=== PATIENT | female | born 1970 | race Caucasian/White ===

== ENCOUNTER 2023-04-07 07:48 | Outpatient (CLI) | payer OTHER, SELFPAY ==
[2023-04-07 18:38] LABS: Hematocrit 42.9 % (37.0-47.0); Hemoglobin 13.7 g/dL (12.0-15.0); Mean Corpuscular HGB Conc 31.9 g/dl (32-36); Mean Corpuscular Hemoglobin 32.2 pg (26-34); Mean Corpuscular Volume 100.7 fl (80-100); Mean Platelet Volume 9.4 fl (7.4-10.4); Platelet Count Result 370 k/mm3 (150-375); Red Blood Count 4.26 M/mm3 (4.2-5.4); Red Cell Distribution Width 12.4 % (11.5-14.5); White Blood Count 8.1 K/mm3 (4.5-10.0)
[2023-04-07 18:53] LABS: Appearance Urine Clear (Clear); Bilirubin Urine Negative (Negative); Blood Urine Negative (Negative); Color Urine Yellow (Yellow); Glucose Urine UA Negative (Negative); Ketones Urine Negative (Negative); Leukocyte Esterase Ur Negative LEU/UL (NEGATIVE); Nitrate Urine Negative (Negative); Protein Urine Negative (Negative); Specific Grav Ur 1.017 (1.001-1.035); Urobilinogen Urine 0.2 mg/dL (<2.0); pH Urine 6.5 (5.0-9.0)
[2023-04-07 18:55] LABS: Add Urine Microscopic? NO
[2023-04-07 19:20] LABS: Alanine Aminotransferase 20 U/L (6-35); Albumin Level 4.6 g/dL (3.5-5.1); Alkaline Phosphatase 68 U/L (38-126); Anion Gap 10 mmol/L (8-16); Aspartate Amino Transferase 54 U/L (14-36); Bilirubin,Total 0.4 mg/dL (0.2-1.3); Blood Urea Nitrogen 15 mg/dL (7-17); Carbon Dioxide 28 mmol/L (22-30); Chloride 102 mmol/L (98-107); Cholesterol 252 mg/dL (0-200); Estimated Glomerular Filt Rate > 60; Glucose 82 mg/dL (65-110); HDL Direct 85 mg/dL; Potassium 4.6 mmol/L (3.4-5.0); Sodium 140 mmol/L (137-145); Triglycerides 58 mg/dL (<150)
[2023-04-07 19:31] LABS: LDL Cholesterol Direct 120 mg/dL
== END 2023-04-07 07:49 | disposition home or self-care (01) ==
LOC: ANHBWCLAB 07:52
PROVIDERS: PCP Nurse Practitioner Adult Health; Visit Provider Nurse Practitioner Adult Health
DX: Z13.9 Encounter for screening, unspecified (principal); R39.9 Unspecified symptoms and signs involving the genitourinary system
CPT/HCPCS: 36415; 80053; 80061; 81003; 84443; 85027

== ENCOUNTER 2023-08-04 08:07 | Emergency (ER) | payer OTHER, SELFPAY ==
[2023-08-04 08:11] VITALS: BP 133/87; PULSE 98; RESP 16; TEMP 36.6; O2SAT 100
[2023-08-04 08:44] VITALS: BP 126/85; PULSE 101; RESP 18; O2SAT 99
[2023-08-04 09:01] LABS: Basophils Absolute Auto 0.1 K/mm3 (0.0-0.1); Basophils Percent Auto 0.7 % (0.2-1.2); Eosinophils Absolute Auto 0.1 K/mm3 (0-0.3); Eosinophils Percent Auto 1.4 % (0-4.4); Hematocrit 38.6 % (37.0-47.0); Hemoglobin 12.5 g/dL (12.0-15.0); Immature Granulocyte Absolute 0.02 K/mm3 (0.00-0.031); Immature Granulocyte Percent A 0.2 % (0-0.5); Lymphocytes Absolute Auto 1.45 K/mm3 (0.9-3.2); Mean Corpuscular HGB Conc 32.4 g/dl (32-36); Mean Corpuscular Volume 95.8 fl (80-100); Mean Platelet Volume 8.5 fl (7.4-10.4); Monocytes Absolute Auto 1.1 K/mm3 (0.1-0.6); Monocytes Percent Auto 13.3 % (2.6-8.5); Neutrophils Absolute Auto 5.8 K/mm3 (1.3-6.7); Neutrophils Percent Auto 67.4 % (45.5-73.1); Platelet Count Result 360 k/mm3 (150-375); Red Blood Count 4.03 M/mm3 (4.2-5.4); Red Cell Distribution Width 12.3 % (11.5-14.5); White Blood Count 8.5 K/mm3 (4.5-10.0)
[2023-08-04 09:04] LABS: Appearance Urine Cloudy (Clear); Bacteria Urine 1+ /hpf; Bilirubin Urine Negative (Negative); Blood Urine Negative (Negative); Color Urine Dark Yellow (Yellow); Glucose Urine UA Negative (Negative); Ketones Urine Trace mg/dL (Negative); Leukocyte Esterase Ur Trace LEU/UL (Negative); Nitrate Urine Negative (Negative); Non Pathogenic Casts 0-2; Protein Urine Negative (Negative); RBC Urine 0-2 /hpf (0-2); Specific Grav Ur 1.025 (1.001-1.035); Squamous Epithelial Cell Urine Few /hpf (Few); WBC Urine 0-5 /hpf
[2023-08-04 09:12] LABS: Add Urine Microscopic? YES
[2023-08-04 09:14] LABS: Alanine Aminotransferase 14 U/L (6-35); Albumin Level 3.7 g/dL (3.5-5.1); Alkaline Phosphatase 71 U/L (38-126); Anion Gap 9 mmol/L (8-16); Aspartate Amino Transferase 21 U/L (14-36); Bilirubin,Total 0.5 mg/dL (0.2-1.3); Blood Urea Nitrogen 13 mg/dL (7-17); Calcium 8.7 mg/dL (8.4-10.2); Carbon Dioxide 24 mmol/L (22-30); Chloride 103 mmol/L (98-107); Estimated CRCL calculation 66 ml/min; Estimated Glomerular Filt Rate > 60; Glucose 98 mg/dL (65-110); Lipase 38 U/L (23-300); Sodium 136 mmol/L (137-145)
[2023-08-04] MEDS: SODIUM CHLORIDE 0.9% IV 1,000 ML 999 ML IV CONT (09:17)
--- NOTE | 2023-08-04 09:30 | ED.GENADULT ---
HPI - General Adult General Chief complaint: Abdominal Pain Stated complaint: abd pain, diarrhea x 2 weeks Time Seen by Provider: 08/04/23 08:47 History of Present Illness HPI narrative: Patient is a 53-year-old female with history of IBS who presents ER with diarrhea and abdominal cramping. Ongoing for 2 weeks. Reports she has very foul brown water coming from her rectum. She has not been traveling and has not been on any antibiotics. No fevers or chills or sweats. She has had fatigue. No vomiting. No chest pain or chest pressure. no alleviating factors. Related Data Home Medications Medication Instructions Recorded Confirmed B12 BYMOUTH 04/06/23 B6 BYMOUTH 04/06/23 albuterol sulfate 90 mcg/actuation 1 puff inhalation Q4H PRN 04/06/23 04/06/23 aerosol inhaler (Ventolin HFA) Allergies Allergy/AdvReac Type Severity Reaction Status Date / Time No Known Allergies Allergy Unverified 04/06/23 15:36 Review of Systems Review of Systems: All systems reviewed & are unremarkable except as noted in HPI and below Constitutional: Constitutional: Reports no additional constitutional complaints ENT: Reports system reviewed and no additional complaints, except as documented Cardiovascular: Cardiovascular: Reports no additional cardiovascular complaints Respiratory: Respiratory: Reports no additional respiratory complaints Gastrointestinal: Gastrointestinal: Reports abdominal pain, Reports diarrhea, Denies nausea and Denies vomiting Musculoskeletal: Musculoskeletal: Reports no additional musculoskeletal complaints [facility] Past Medical History Medical History (Updated 08/04/23 @ 12:43 by Curt Jenkins MD) Asthma GERD (gastroesophageal reflux disease) IBS (irritable bowel syndrome) Family History Family History (Updated 04/06/23 @ 15:38 by Aurelia Roy MA) Father Asthma Hypertension History of ETOH abuse Grandparent No problems noted. 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 Gender identity (if verbalized by the patient): Female Agree to blood products: Yes Exam Narrative: GENERAL: Well-appearing, well-nourished, and in no acute distress. HEAD: Normocephalic, atraumatic. ENT: Mucous membranes moist. NECK: Supple. CHEST: Clear to auscultation. No respiratory distress. HEART: Regular rate and rhythm. Normal peripheral pulses. ABDOMEN: Soft, nontender, nondistended. EXTREMITIES: Normal range of motion. No edema. SKIN: Warm, dry, no rash. NEURO: Alert and oriented x3. PSYCH: Normal mood and affect. Course Course Emergency Course: patient resting comfortably. No C diff colitis. Discussed treatment with oral antibiotics for infectious diarrhea. Patient verbalized understanding. Recommend follow-up with PCP. If she does not improve she may require GI referral. Vital Signs Vital signs: Vital Signs Temperature 97.8 F 08/04/23 08:11 Pulse Rate 98 08/04/23 08:11 Respiratory Rate 16 08/04/23 08:11 Blood Pressure 133/87 08/04/23 08:11 Pulse Oximetry 100 08/04/23 08:11 Oxygen Delivery Room Air 08/04/23 08:11 Temperature 97.8 F 08/04/23 08:11 Pulse Rate 99 08/04/23 12:14 Respiratory Rate 17 08/04/23 12:14 Blood Pressure 131/85 08/04/23 12:14 Pulse Oximetry 100 08/04/23 12:14 Oxygen Delivery Room Air 08/04/23 08:11
[2023-08-04 10:07] LABS: Toxigenic C. Diff NEGATIVE (NEGATIVE)
[2023-08-04 12:14] VITALS: BP 131/85; PULSE 99; RESP 17; O2SAT 100
== END 2023-08-04 12:57 | disposition home or self-care (01) ==
PROVIDERS: Emergency Provider Emergency Medicine; PCP Nurse Practitioner Adult Health
DX: K52.9 Noninfective gastroenteritis and colitis, unspecified (principal)
CPT/HCPCS: 36415; 74018; 80053; 81001; 83690; 85025; 87493; 96360; 99283; J7030

== ENCOUNTER 2023-08-04 14:01 | Outpatient (CLI) | payer OTHER, SELFPAY ==
--- NOTE | ~2023-08-04 | XR_ITS ---
EXAMINATION: XR abdomen/kub 1V DATE: 08/04/2023 14:20 INDICATION: Diarrhea TECHNIQUE: Supine and upright views of the abdomen. FINDINGS: No prior studies for comparison. The visualized lung parenchyma is normal.. There is a nonspecific bowel gas pattern. There are multip le air-fluid levels. Gas and stool are seen throughout the colon to the level of the rectum. There i s no free air. IMPRESSION: 1. Air-fluid levels throughout the bowel without definite obstruction suggesting ileus or enteritis. . Reviewed, dictated and finalized at location B. K TRACER IMPRESSION: 1. Air-fluid levels throughout the bowel without definite obstruction suggesti ng ileus or enteritis..
== END 2023-08-04 14:02 | disposition home or self-care (01) ==
LOC: ANHBWCIMG 14:04
PROVIDERS: PCP Nurse Practitioner Adult Health; Visit Provider Nurse Practitioner Adult Health
DX: R19.7 Diarrhea, unspecified (principal)
CPT/HCPCS: 74018

== ENCOUNTER 2023-08-11 10:23 | Outpatient (CLI) | payer OTHER, SELFPAY ==
[2023-08-11 19:45] LABS: Hematocrit 42.1 % (37.0-47.0); Hemoglobin 13.4 g/dL (12.0-15.0); Mean Corpuscular HGB Conc 31.8 g/dl (32-36); Mean Corpuscular Hemoglobin 31.2 pg (26-34); Mean Corpuscular Volume 98.1 fl (80-100); Platelet Count Result 440 k/mm3 (150-375); Red Blood Count 4.29 M/mm3 (4.2-5.4); Red Cell Distribution Width 12.9 % (11.5-14.5); White Blood Count 8.4 K/mm3 (4.5-10.0)
[2023-08-11 21:13] LABS: Toxigenic C. Diff NEGATIVE (NEGATIVE)
[2023-08-11 21:14] LABS: Alanine Aminotransferase 20 U/L (6-35); Albumin Level 3.9 g/dL (3.5-5.1); Alkaline Phosphatase 64 U/L (38-126); Amylase 85 U/L (30-110); Anion Gap 8 mmol/L (8-16); Aspartate Amino Transferase 44 U/L (14-36); Bilirubin,Total 0.3 mg/dL (0.2-1.3); Blood Urea Nitrogen 14 mg/dL (7-17); Calcium 8.8 mg/dL (8.4-10.2); Carbon Dioxide 24 mmol/L (22-30); Chloride 102 mmol/L (98-107); Estimated Glomerular Filt Rate > 60; Glucose 89 mg/dL (65-110); Lipase 129 U/L (23-300); Sodium 134 mmol/L (137-145)
== END 2023-08-11 10:24 | disposition home or self-care (01) ==
LOC: ANHBWCLAB 10:25
PROVIDERS: PCP Nurse Practitioner Adult Health; Visit Provider Nurse Practitioner Adult Health
DX: R19.7 Diarrhea, unspecified (principal); R10.9 Unspecified abdominal pain
CPT/HCPCS: 36415; 80053; 82150; 83690; 83735; 85027; 87045; 87427; 87449; 87493

== ENCOUNTER 2023-08-11 12:34 | Emergency (ER) | payer OTHER, SELFPAY ==
[2023-08-11] VITALS (18 sets, daily range): BP systolic 124–148; BP diastolic 90–100; PULSE 93–113; RESP 11–20; TEMP 36.2; O2SAT 98–100
--- NOTE | ~2023-08-11 | CT_ITS ---
EXAMINATION: CT abdomen pelvis w con DATE: 08/11/2023 14:14 INDICATION: Abdominal pain, nausea and vomiting TECHNIQUE: Computed tomography (CT) of the abdomen and pelvis was performed with 100 mL Omnipaque-350 intravenous contrast. Automated exposure control and iterative reconstruction technique were employe d. The dose-length product was 339.41 mGy-cm. COMPARISON: None FINDINGS: Minimal atelectasis at the bilateral lung bases. Heart size is normal. No pericardial or pleural effu alena. Bilateral breast implants. Small region of focal hepatic steatosis at the ligamentum teres. Gal lbladder, spleen, pancreas, bilateral adrenal glands and kidneys are normal. There are surgical clips near the tip the cecum with no visualized appendix suggesting prior appendectomy. There is fluid thr oughout the colon consistent with reported history of diarrhea. No bowel obstruction. Bladder is norm al. The uterus is not identified and has likely been surgically resected. No free intraperitoneal gas or fluid. No pathologically enlarged abdominal or pelvic lymphadenopathy. Moderate lower thoracic sp ondylosis. IMPRESSION: 1. Fluid throughout the colon consistent with nonspecific diarrhea. No other acute intra-abdominal/pe lvic process. Reviewed, dictated and finalized at location A. LINE CREW MEMBER IMPRESSION: 1. Fluid throughout the colon consistent with nonspecific diarrhea. No other ac [place] intra-abdominal/pelvic process.
--- NOTE | 2023-08-11 12:50 | ED.NAVMDI ---
HPI - Nausea/Vomiting/Diarrhea General Chief complaint: Nausea/Vomiting/Diarrhea Stated complaint: Diarrhea/cramps Time Seen by Provider: 08/11/23 12:50 History of Present Illness HPI Narrative: Patient is a 53-year-old female here with abdominal pain and diarrhea x1 month. She states that she has been having 15-25 loose bowel movements a day which she describes is ?peeing out of her butt ?. She notes she was seen here recently for this, had a workup and C diff which was negative. She was started on Cipro and Flagyl and discharged home. She notes that the diarrhea previously had a foul smell which resolved with antibiotics but the volume has not changed. She has tried Imodium and Pepto bismol without improvement of symptoms. She followed up with her primary care doctor today was concerned given the volume of diarrhea that she could be dehydrated. They did refer her to GI, ordered an outpatient CT scan and started her on omeprazole. She was referred to the emergency department given concern for dehydration. She has had a prior colonoscopy, last was about 2 years ago, unremarkable. No prior history of IBD. No family history of IBD, colon cancer. She notes some generalized fatigue, lightheadedness associated with this diarrhea. No blood per rectum. She traveled to [place] in May, does not remember getting sick there. No recent changes in diet or medications Related Data Home Medications Medication Instructions Recorded Confirmed B12 BYNDUTH 04/06/23 08/11/23 B6 BYNDUTH 04/06/23 08/11/23 albuterol sulfate 90 mcg/actuation 1 puff inhalation Q4H PRN 04/06/23 08/11/23 aerosol inhaler (Ventolin HFA) Allergies Allergy/AdvReac Type Severity Reaction Status Date / Time No Known Allergies Allergy Verified 08/11/23 12:35 Review of Systems Review of Systems: All systems reviewed & are unremarkable except as noted in HPI and below PMFSH Past Medical History Medical History (Updated 08/11/23 @ 17:00 by Olamide Blake MD) Asthma GERD (gastroesophageal reflux disease) IBS (irritable bowel syndrome) Family History Family History (Updated 04/06/23 @ 15:38 by Aurelia Roy MA) Father Asthma Hypertension History of ETOH abuse Grandparent No problems noted. 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 Gender identity (if verbalized by the patient): Female Agree to blood products: Yes Exam Narrative: GENERAL: Well-appearing, well-nourished, and in no acute distress. HEAD: Normocephalic, atraumatic. EYES: PERRLA and EOMI. ENT: Nares clear. Mucous membranes moist. NECK: Supple. CHEST: Clear to auscultation. No respiratory distress. HEART: Regular rate and rhythm. Normal peripheral pulses. ABDOMEN: Soft, diffusely tender, no rebound or guarding, nondistended. EXTREMITIES: Normal range of motion. No edema. SKIN: Warm, dry, no rash. NEURO: No focal deficits. Alert and oriented x3. PSYCH: Normal mood and affect. Course Course Emergency Course: Chart review performed. Patient here with N/V/D x1 month, has been seen here previously for same, sent by PCP for concern for dehydration. PCP note reviewed. Note she finished a course of cipro, flagyl, having watery stools. Outpatient CT ordered by them, started on omeprazole and referred to GI. Patient seen evaluated, nontoxic appearing. Will do IV fl
[2023-08-11 13:21] LABS: Basophils Absolute Auto 0.1 K/mm3 (0.0-0.1); Basophils Percent Auto 0.6 % (0.2-1.2); Eosinophils Absolute Auto 0.2 K/mm3 (0-0.3); Eosinophils Percent Auto 2.1 % (0-4.4); Hematocrit 38.4 % (37.0-47.0); Hemoglobin 12.4 g/dL (12.0-15.0); Immature Granulocyte Absolute 0.08 K/mm3 (0.00-0.031); Immature Granulocyte Percent A 0.9 % (0-0.5); Lymphocytes Absolute Auto 1.52 K/mm3 (0.9-3.2); Lymphocytes Percent Auto 16.8 % (18.3-44.2); Mean Corpuscular HGB Conc 32.3 g/dl (32-36); Mean Platelet Volume 8.8 fl (7.4-10.4); Monocytes Absolute Auto 1.2 K/mm3 (0.1-0.6); Monocytes Percent Auto 13.7 % (2.6-8.5); Neutrophils Percent Auto 65.9 % (45.5-73.1); Platelet Count Result 401 k/mm3 (150-375); Red Cell Distribution Width 12.6 % (11.5-14.5); White Blood Count 9.1 K/mm3 (4.5-10.0)
[2023-08-11] MEDS: LACTATED RINGERS 1,000 ML 999 ML IV CONT ×2 (13:21)
[2023-08-11 13:39] LABS: Alanine Aminotransferase 19 U/L (6-35); Albumin Level 3.7 g/dL (3.5-5.1); Alkaline Phosphatase 48 U/L (38-126); Anion Gap 7 mmol/L (8-16); Aspartate Amino Transferase 28 U/L (14-36); Bilirubin,Total 0.3 mg/dL (0.2-1.3); Blood Urea Nitrogen 11 mg/dL (7-17); Calcium 8.3 mg/dL (8.4-10.2); Carbon Dioxide 26 mmol/L (22-30); Chloride 101 mmol/L (98-107); Estimated CRCL calculation 66 ml/min; Estimated Glomerular Filt Rate > 60; Glucose 114 mg/dL (65-110); Lipase 83 U/L (23-300); Magnesium 1.8 mg/dL (1.6-2.3); Potassium 3.7 mmol/L (3.4-5.0); Sodium 134 mmol/L (137-145)
[2023-08-11 13:56] LABS: Appearance Urine Clear (Clear); Bilirubin Urine Negative (Negative); Blood Urine Negative (Negative); Color Urine Yellow (Yellow); Glucose Urine UA Negative (Negative); Ketones Urine Negative (Negative); Leukocyte Esterase Ur Negative LEU/UL (Negative); Nitrate Urine Negative (Negative); Protein Urine Negative (Negative); Specific Grav Ur 1.005 (1.001-1.035); Urobilinogen Urine 0.2 mg/dL (<2.0)
[2023-08-11 14:14] LABS: Add Urine Microscopic? NO
[2023-08-11 16:54] LABS: Toxigenic C. Diff NEGATIVE (NEGATIVE)
== END 2023-08-11 17:16 | disposition home or self-care (01) ==
PROVIDERS: Emergency Medicine; Emergency Provider Student in an Organized Health Care Education/Training Program; PCP Nurse Practitioner Adult Health
DX: R19.7 Diarrhea, unspecified (principal); J45.909 Unspecified asthma, uncomplicated; K21.9 Gastro-esophageal reflux disease without esophagitis; K58.9 Irritable bowel syndrome, unspecified
CPT/HCPCS: 36415; 74177; 80053; 81003; 81025; 82150; 83605; 83690; 83735; 85025; 85027; 87045; 87427; 87449; 87493; 96360; 96361; 99284; J7120; Q9967

== ENCOUNTER 2023-11-16 15:35 | Outpatient (CLI) | payer OTHER, SELFPAY ==
--- NOTE | ~2023-11-16 | XR_ITS ---
XR_[id number]_[id number] 11/16/2023 15:55 Indication: Left knee pain Procedure: 2 views left knee Comparison: No prior studies for comparison. Findings: No fracture, subluxation or dislocation. No joint effusion. No foreign bodies. Impression: 1: No significant bone or joint abnormality. Reviewed, dictated and finalized at location A. Impression: 1: No significant bone or joint abnormality.
--- NOTE | ~2023-11-16 | XR_ITS ---
XR_[id number]_[id number] 11/16/2023 15:55 Indication: Right knee pain Procedure: 2 views right knee Comparison: No prior studies for comparison. Findings: No fracture, subluxation or dislocation. No significant joint effusion. No foreign bodies. Impression: 1: No significant bone or joint abnormality. Reviewed, dictated and finalized at location A. Impression: 1: No significant bone or joint abnormality.
== END 2023-11-16 15:36 | disposition home or self-care (01) ==
LOC: ANHBWCIMG 15:38
PROVIDERS: PCP Nurse Practitioner Adult Health; Visit Provider Nurse Practitioner Adult Health
DX: M25.569 Pain in unspecified knee (principal)
CPT/HCPCS: 73560

== ENCOUNTER 2023-12-03 08:28 | Outpatient (CLI) | payer OTHER, SELFPAY ==
--- NOTE | ~2023-12-03 | MR_ITS ---
MRI of the left knee Clinical history: Pain Technique: Coronal proton density and proton density-weighted images, sagittal proton-density and T2 fat-sat images, and axial proton-density fat-saturated images were acquired. Findings: Anterior and posterior cruciate ligaments are intact. Medial collateral ligament and the la teral collateral ligament complex are intact. Popliteus tendon is intact. Medial and lateral menisci are intact, without evidence of tear. There is patchy mild chondromalacia patella. Probable mild chondral thinning in the medial compartmen t. Remaining articular cartilage is relatively well preserved. Extensor mechanism is intact. No significant joint effusion. Minimal Marin's cyst present. Impression: Mild chondromalacia patella and in the medial compartment. Minimal Marin's cyst. Reviewed, dictated and finalized at location . Impression: Mild chondromalacia patella and in the medial compartment. Minimal Marin's cyst.
--- NOTE | ~2023-12-03 | MR_ITS ---
MRI of the right knee Clinical history: Pain Technique: Coronal proton density and proton density-weighted images, sagittal proton-density and T2 fat-sat images, and axial proton-density fat-saturated images were acquired. Findings: Anterior and posterior cruciate ligaments are intact. Medial collateral ligament and the la teral collateral complex are intact. Popliteus tendon is intact. Medial and lateral menisci are intact, without evidence of tear. There is patchy moderate to high-grade chondromalacia along lateral patellar facet extending to the a pex. Remaining articular cartilage in the knee is otherwise intact. There are focal areas of mild hector ctive subchondral marrow edema in the patella. Extensor mechanism is intact. No significant joint effusion. Small Marin's cyst. Impression: Chondromalacia patella, as detailed above. Small Marin's cyst. Reviewed, dictated and finalized at [facility]. Impression: Chondromalacia patella, as detailed above. Small Marin's cyst.
== END 2023-12-03 08:29 | disposition home or self-care (01) ==
PROVIDERS: PCP Nurse Practitioner Adult Health; Visit Provider Nurse Practitioner Adult Health
DX: M25.562 Pain in left knee (principal); M25.561 Pain in right knee; M71.21 Synovial cyst of popliteal space [Baker], right knee; M71.22 Synovial cyst of popliteal space [Baker], left knee
CPT/HCPCS: 73721

== ENCOUNTER 2024-02-22 20:07 | Emergency (ER) | payer OTHER, SELFPAY ==
--- NOTE | ~2024-02-22 | XR_ITS ---
EXAM: XR ankle RT min 3V, XR foot RT min 3V DATE: 02/22/2024 20:45 HISTORY: fall, twisted RT ankle . COMPARISON: None available. FINDINGS: Normal mineralization. Transverse fracture at the base the fifth metatarsal with 2 mm dist raction. No lytic or blastic lesion. Joint spaces are maintained. No erosion or periosteal change. So ft tissues within normal limits. IMPRESSION: Mildly distracted proximal right fifth metatarsal avulsion fracture. Reviewed, dictated and finalized at location K. IMPRESSION: Mildly distracted proximal right fifth metatarsal avulsion fracture .
[2024-02-22 20:48] VITALS: BP 168/90; PULSE 90; RESP 16; TEMP 36.3; O2SAT 100
--- NOTE | 2024-02-22 21:24 | ED.LOWEXIN ---
HPI - Extremity Injury (Lower) General Chief Complaint: Extremity Injury, Lower Stated Complaint: R ankle injury Time Seen by Provider: 02/22/24 21:18 Source: patient and family Mode of arrival: ambulatory Limitations: no limitations History of Present Illness HPI Narrative: 54-year-old with a history of for GERD, IBS, here with the complaints of right foot pain. Patient states that she accidentally twisted her foot on her front porch of her house and now having difficulty bearing weight. No other injuries. MD complaint: ankle injury and foot injury Onset (ago): hour(s) (1) Type of Injury: inversion Place: home Severity: moderate Relieving factors: nothing Exacerbating factors: nothing Associated symptoms: swelling Other symptoms: none Related Data Home Medications Medication Instructions Recorded [facility] 12/13/23 B6 [facility] 04/06/23 12/13/23 Allergies Allergy/AdvReac Type Severity Reaction Status Date / Time No Known Allergies Allergy Verified 02/22/24 21:10 Review of Systems Review of Systems: All systems reviewed & are unremarkable except as noted in HPI and below Constitutional: Constitutional: Reports no additional constitutional complaints Eyes: Eyes: Reports no additional eye complaints ENT: Reports system reviewed and no additional complaints, except as documented Cardiovascular: Cardiovascular: Reports no additional cardiovascular complaints Gastrointestinal: Gastrointestinal: Reports no additional gastrointestinal complaints Musculoskeletal: Musculoskeletal: Reports as per HPI Neurologic: Reports system reviewed and no additional complaints, except as documented Psychiatric: Psychiatric: Reports no additional psychiatric complaints [facility] Past Medical History Medical History Asthma Chondromalacia patellae of right knee GERD (gastroesophageal reflux disease) History of wrist fracture IBS (irritable bowel syndrome) Surgical History Surgical History History of appendectomy History of partial hysterectomy History of sinus surgery Family History Family History Father Asthma Hypertension History of ETOH abuse Cancer Grandparent No problems noted. Social History Social History (Updated 12/14/23 @ 14:56 by Yaneth Torres [facility]) Social History: caffeine use Smoking status: Never smoker Alcohol intake: current Drinks per week: 3 Alcohol use details: beer wine Lack of Transportation: No Lack of Food: Never True Current Housing: I Have Housing Concerned About Future Housing: No Difficulty Paying Gas/Electric Bills: No Difficulty Paying for Meds: No Currently Unemployed: No Education: High School Diploma/GED Difficulty w/ Childcare or Family Care: No Living arrangements: with roommate(s) Occupation/Education: occupation 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 Gender identity (if verbalized by the patient): Female Agree to blood products: Yes Exam Narrative: GENERAL: Well-appearing, well-nourished, and in no acute distress. HEAD: Normocephalic, atraumatic. EYES: PERRLA and EOMI. ENT: Nares clear, no rhinorrhea or epistaxis. Mucous membranes moist. NECK: Supple. CHEST: Clear to auscultation. No respiratory distress. HEART: Regular rate and rhythm. No murmur heard. Normal peripheral pulses. EXTREMITIES: Normal range of motion. No edema. Examination of the right foot shows mild soft tissue swelling along the 5th metatarsal area. No deformity noted. SKIN: Warm, dry, no rash. NEURO: No focal deficits. Alert and oriented x3. PSYCH: Normal mood and affect. Course Course Emergency Course: Notified patient about her x-ray findings. Recommended her to follow up with Dr. Alberts ,use crutches for ambulation.
[2024-02-22] MEDS: HYDROcodone/acetaminophen (*CRX) 5-325 MG TABLET 1 TAB PO (21:50)
== END 2024-02-22 22:01 | disposition home or self-care (01) ==
PROVIDERS: Emergency Provider Family Medicine; PCP Nurse Practitioner Adult Health
DX: S92.351A Displaced fracture of fifth metatarsal bone, right foot, initial encounter for closed fracture (principal); J45.909 Unspecified asthma, uncomplicated; K21.9 Gastro-esophageal reflux disease without esophagitis; X50.0XXA Overexertion from strenuous movement or load, initial encounter
CPT/HCPCS: 29515; 73610; 73630; 99284; A9270

== ENCOUNTER 2024-02-29 07:04 | Outpatient (CLI) | payer OTHER, SELFPAY ==
[2024-03-02 08:58] LABS: Thyroid Peroxidase Antibodies 1 IU/mL (<9)
[2024-03-02 15:29] LABS: Alternaria alternata IgE <0.10 kU/L; Alternaria alternata IgE Class 0; Aspergillus fumigatus IgE <0.10 kU/L; Bermuda Grass (G2) IgE <0.10 kU/L; Bermuda Grass (G2) IgE Class 0; Cat Dander IgE Class 1; Cladosporium herbarum IgE <0.10 kU/L; Cladosporium herbarum IgE Clas 0; Cockroach IgE <0.10 kU/L; Cockroach IgE Clas 0; Common Ragweed IgE Class 0; Cottonwood IgE <0.10 kU/L; Dermatophagoides Farinae Class 0; Dermatophagoides Pterony Class 0; Dermatophagoides Pteronyssinus <0.10 kU/L; Dog Dander IgE <0.10 kU/L; Elm (T8) IgE <0.10 kU/L; Elm (T8) IgE Class 0; Hickory/Pecan IgE <0.10 kU/L; Hickory/Pecan IgE Class 0; Immunoglobulin E 73 kU/L (<OR=114); Maple Box Elder IgE Class 0; Mountain Cedar IgE <0.10 kU/L; Mountain Cedar IgE Class 0; Mouse Urine Proteins IgE <0.10 kU/L; Mouse Urine Proteins IgE Class 0; Oak IgE <0.10 kU/L; Peniciliium notatum class 0; Penicillium notatum (M1) IgE <0.10 kU/L; Rough Marsh <0.10 kU/L; Rough Marsh Elder Class 0; Rough Pigweed (W14) IgE <0.10 kU/L; Rough Pigweed (W14) IgE Class 0; Russian Thistle <0.10 kU/L; Sycamore IgE <0.10 kU/L; Sycamore IgE Class 0; Timothy Grass IgE <0.10 kU/L; Timothy Grass IgE Class 0; Walnut Tree IgE <0.10 kU/L; Walnut Tree IgE Class 0; White Ash IgE Class 0; White Mulberry IgE <0.10 kU/L; White Mulberry IgE Class 0
[2024-03-06 07:07] LABS: Reference Lab Test Result 8.1
[2024-03-08 17:10] LABS: Reference Lab Test Name Chronic Urticaria
[2024-03-08 17:11] LABS: Reference Lab Test Result <16%
[2024-03-10 07:44] LABS: Reference Lab Test Name IgE Antibody; Reference Lab Test Result 13
== END 2024-02-29 07:05 | disposition home or self-care (01) ==
PROVIDERS: PCP Nurse Practitioner Adult Health
DX: J31.0 Chronic rhinitis (principal); L50.8 Other urticaria
CPT/HCPCS: 36415; 82785; 83520; 84443; 86003; 86376; 86800

== ENCOUNTER 2024-03-20 08:19 | Outpatient (CLI) | payer OTHER, SELFPAY ==
--- NOTE | ~2024-03-20 | XR_ITS ---
XR foot RT min 3V Ordering provider: Fracisco Alberts MD History: . M79.671 - Pain in right foot - Follow up . Comparison: February 25, 2024 FINDINGS: BONES: Fracture at the base of the fifth metatarsal bone with possible partial healing. JOINT SPACES: Normal. No tarsal coalition. SOFT TISSUES: Normal. IMPRESSION: Healing fracture at the base of the fifth metatarsal bone. Clinical correlation for tenderness in the area is advised. Reviewed, dictated and finalized at location A.
== END 2024-03-20 08:20 | disposition home or self-care (01) ==
PROVIDERS: PCP Nurse Practitioner Adult Health; Visit Provider Orthopaedic Surgery
DX: S92.351D Displaced fracture of fifth metatarsal bone, right foot, subsequent encounter for fracture with routine healing (principal); X58.XXXD Exposure to other specified factors, subsequent encounter
CPT/HCPCS: 73630

== ENCOUNTER 2024-04-28 12:03 | Outpatient (CLI) | payer OTHER, SELFPAY ==
--- NOTE | ~2024-04-28 | MM_ITS ---
EXAMINATION: MM scrn kedar implant BI w dagmar HISTORY: Screening mammogram TECHNIQUE: Craniocaudal and mediolateral oblique 3-D tomosynthesis images with implant displacement a nd synthetic 2-D images were generated. Craniocaudal and mediolateral oblique views of the breasts wi thout implant displacement were obtained using full field digital mammography. CAD analysis was submi tted and interpreted. COMPARISON: No prior mammogram is available for comparison at this institution. BREAST PARENCHYMAL COMPOSITION: The breasts are heterogeneously dense, which may obscure small masses . FINDINGS: There is no evidence of suspicious mass, calcification, or architectural distortion to sugg est malignancy in either breast. There has been no suspicious interval change. IMPRESSION: No mammographic evidence of malignancy. Recommend routine screening mammography in one year. BI-RADS Category 1: Negative Reviewed, dictated and finalized at [facility].
== END 2024-04-28 12:04 | disposition home or self-care (01) ==
PROVIDERS: PCP Nurse Practitioner Adult Health; Visit Provider Nurse Practitioner Adult Health
DX: Z12.31 Encounter for screening mammogram for malignant neoplasm of breast (principal)
CPT/HCPCS: 77063; 77067

== ENCOUNTER 2024-06-22 08:11 | Outpatient (CLI) | payer OTHER, SELFPAY ==
[2024-06-22 19:26] LABS: Hematocrit 39.4 % (37.0-47.0); Hemoglobin 12.9 g/dL (12.0-15.0); Mean Corpuscular HGB Conc 32.7 g/dl (32-36); Mean Corpuscular Hemoglobin 31.8 pg (26-34); Mean Platelet Volume 9.2 fl (7.4-10.4); Platelet Count Result 374 k/mm3 (150-375); Red Blood Count 4.06 M/mm3 (4.2-5.4); Red Cell Distribution Width 12.3 % (11.5-14.5); White Blood Count 5.4 K/mm3 (4.5-10.0)
[2024-06-22 20:15] LABS: Alanine Aminotransferase 19 U/L (6-35); Albumin Level 4.7 g/dL (3.5-5.1); Alkaline Phosphatase 64 U/L (38-126); Anion Gap 8 mmol/L (4-12); Aspartate Amino Transferase 70 U/L (14-36); Bilirubin,Total 0.4 mg/dL (0.2-1.3); Blood Urea Nitrogen 20 mg/dL (7-17); Calcium 9.3 mg/dL (8.4-10.2); Carbon Dioxide 28 mmol/L (22-30); Chloride 102 mmol/L (98-107); Cholesterol 235 mg/dL (0-200); Estimated Glomerular Filt Rate > 60; Glucose 84 mg/dL (65-110); HDL Direct 66 mg/dL; Sodium 138 mmol/L (137-145); Triglycerides 84 mg/dL (<150)
[2024-06-22 20:26] LABS: LDL Cholesterol Direct 116 mg/dL
== END 2024-06-22 08:12 | disposition home or self-care (01) ==
LOC: ANHBWCLAB 08:17
PROVIDERS: PCP Nurse Practitioner Adult Health; Visit Provider Nurse Practitioner Adult Health
DX: Z13.29 Encounter for screening for other suspected endocrine disorder (principal)
CPT/HCPCS: 36415; 80053; 80061; 82607; 84443; 85027

== ENCOUNTER 2024-07-10 16:02 | Outpatient (CLI) | payer OTHER, SELFPAY ==
--- NOTE | ~2024-07-10 | XR_ITS ---
AP and lateral views of the left hip Clinical history: Pain Findings: No acute fracture or dislocation is seen. Osseous alignment is anatomic. Left hip joint is intact. Soft tissues are unremarkable. Impression: No significant abnormality is seen. Reviewed, dictated and finalized at location M. SKINNER Impression: No significant abnormality is seen.
== END 2024-07-10 16:03 | disposition home or self-care (01) ==
LOC: ANHBWCIMG 16:04
PROVIDERS: PCP Nurse Practitioner Adult Health; Visit Provider Nurse Practitioner Adult Health
DX: M25.552 Pain in left hip (principal)
CPT/HCPCS: 73502

== ENCOUNTER 2025-05-01 10:36 | Outpatient (CLI) | payer BC, SELFPAY ==
--- OUTSIDE RECORDS SUMMARY | 2025-01-25 11:15 | XMS_ITS ---
Author Organization [facility] [place] ([address]) Address [address] [place] [address] Care Team Providers Care Eligibility Supervisor Name Role Phone Marcia Victoria Primary Care Provider Jania Jeaneth Candelario Unavailable [phone] Lashay Dunn Unavailable Unavailable Gilberto Richter Unavailable [phone] REASON FOR VISIT Hives follow-up Eczema follow-up Encounters Encounter Location Date Provider Diagnosis [facility] [address] [place] [address] 01/25/2025 Gilberto Richter Plan Of Treatment Next Appt Details Provider Name:Jeaneth Stone , 05/31/2025 03:30:00 PM, [address], [address], [place], [address], Progress Notes * Radha TOBINDOB:1970 (55 yo F)Acc No.[id number]:01/25/2025 Progress Notes Patient: Radha MARRERO Provider: Lucille Richter PA-C :1970 A ge:55 Y S ex:Female Date:01/25/2025 Address:[address] [id number] Pcp:JESSICA Garcia Subjective: * Chief Complaints: * 1 . Hives follow-up Eczema follow-up. * Medical History: Objective: * Vitals: Assessment: Plan: * Treatment: * Billing Information: * Visit Code: * Procedure Codes: * Electronic signature of Ayad Richter PA-C on 05/01/2025 at 11:23 AM CDT Sign off status: Pending * Provider: Lucille Richter PA-C Date: 0 01/25/2025 Generated for Erin lerner/Cory/Merricksmdelia on: 0 05/01/2025 11:23 AM CDT
--- NOTE | ~2025-05-01 | XR_ITS ---
EXAMINATION: XR mandible min 4V DATE: 05/01/2025 11:30 INDICATION: Right-sided jaw pain after trauma TECHNIQUE: Left and right lateral views as well as frontal and open mouth frontal views of the mandible were obtained COMPARISON: None. FINDINGS: No convincing radiographic evidence for a fracture of the mandible, however, evaluation is limited due to overlapping structures. Nasal septum is slightly deviated to the left. The sinuses are grossly clear. IMPRESSION: 1. No convincing radiographic evidence for a fracture of the mandible, however, evaluation is limited due to overlapping structures. If continued concern, consider a maxillofacial CT for further assessment. Reviewed, dictated and finalized at location Q. IMPRESSION: 1. No convincing radiographic evidence for a fracture of the mandible, however, evaluation is limited due to overlapping structures. If continued concern, con obstetrics specialist a maxillofacial CT for further assessment.
--- OUTSIDE RECORDS SUMMARY | 2025-05-01 11:24 | XMS_ITS | Encounter Summary ---
Author Organization [facility] Address [address] [place] [address] Phone Care Team Providers Care Admin Secretary Name Role Phone Jorge Luis Weems MD Unavailable Unavailab Sharmin Cosby MD Primary Care Provider Marcia Abrams APRN Primary Care Provider [phone] Kailey Tomlin MD Unavailable Reason for Visit * Reason Comments Medication Refill Encounter Details Date Type Department Care Team (Late st Contact Info) Description 07/27/2022 Refill [facility] - Family Medicine [address] [place] [address] [place] [id number] [place] [address] Medication Refill Social History Tobacco Use Types Packs/Day Years Used Date Smoking Tobacco: Never Smokeless Tobacco: Never Alcohol Use Standard Drinks/Week Comments Yes 3 (1 standard drink = 0.6 oz pur e alcohol) PHQ-2 Answer Date Recorded Total Score - Questions 1-9 0 05/0 11/2021 Sexually Active Control Partners Comments Yes Male Comments No Sex and Gender Information Value Date Recorded Sex Assigned at Not on file Legal Sex Female 11:21 PM CDT Gender Identity Not on file Sexual Orientation Not on file documented as of this encounter Miscellaneous Notes * Telephone Encounter - Kailyn Cunha RN - 07/27/2022 1:33 PM [employer] Duplicate request. [employer] * Telephone Encounter - Grazyna Valdez RN - 07/27/2022 10:11 AM CST duplicate [employer] documented in this encounter Plan of Treatment Upcoming Encounters Date Type Department Care Team (Late st Contact Info) Description 05/02/2025 8:00 AM CDT Office Visit [facility] - Cardiology [facility] ([facility] [address] [place] [address] Kailey Tomlin MD [address] [id number] documented as of this encounter Visit Diagnoses Diagnosis Anxiety Anxiety state, unspecified documented in this encounter Additional Health Concerns Infection Onset Date Last Indicated Resolved Time COVID - 19 09/23/2024 09/23/2024 09/23/2024 1:12 PM [employer] Respiratory Rule-Out 01/07/2025 01/07/2025 025 12:36 PM CDT Assessment Noted Time PHQ-9 Depression Total Score: 0 05/21/20 20 7:33 AM CDT documented as of this encounter Care Teams Admin Secretary Relationship Specialty Start Date End Date Sharmin Guillaume MD PCP - General Family Medicine 09/16/17 01/24/24 Marcia Abrams APRN [address] [place] [id number] PCP - General Advanced Practice Nurse 09/21/24 Jorge Luis Weems MD Consulting Physician Obstetrics & Gynecology 03/15/17 Kailey Tomlin MD [address] [id number] Consulting Physician Cardiovascular Disease - Cardiology 12/21/24 documented as of this encounter
--- OUTSIDE RECORDS SUMMARY | 2025-05-01 11:24 | XMS_ITS | Clinical Summary ---
Author Organization [facility] Address [address] [place] [address] Care Team Providers Care Data Entry Processor Name Role Phone Marcia Abrams SKIP-DUCT LAYER SUPERVISOR Primary Care Provider + Source Comments [facility],non-owned Affiliates and Associated Physician Practices is amultiple site organization consisting of ambulatory clinics and hospital sitesin [place], [place], [place] and [place]. This disclosure is being madepursuant to the Care Everywhere program and may not contain all information available regarding this patient. Last updated 18.[facility] Allergies Active Allergy Reactions Criticality Noted Date Comments Polyethylene Glycol Itching,Rhinitis Low 09/25/2024 Protamine Angioedema High 03/29/2025 Given in similar timeframe as Zofran, unknown which drug caused Sulfamethoxazole W-Trimethoprim Rash Medium 11/29/2020 Sulfur Hexaflouride Lipid A Microspheres Other Medium 09/25/2024 30 seconds after administration, patient began sneezing, complained of itching to palms of hands, then itching to soles of the feet. No treatment needed and able to complete test. Ondansetron Angioedema High 03/29/2025 Given in similar timeframe as Protamine, unknown which drug caused Medications * Be aware that medications may not be up to date on this document. Alwaysverify current medications with the patient. hydrocortisone, rectal, (Anusol-HC) 2.5 % cream Insert into the rectum at bedtime 28 g 4 Active loperamide (Imodium) 2 MG capsuleIndicati ons:Diarrhea Take 1 (one) capsule by mouth every 2 hours as needed for Diarrhea (max of 16mg daily) Reasons: Diarrhea 30 capsule 4 Active levalbuterol (Xopenex) 0.63 MG/3ML nebulizer solution Inhale 1.5 mL by mouth every 8 hours as needed for Shortness of Breath or Wheezing 21 mL 4 Active budesonide (Entocort EC) 3 MG capsule Take 3 (three) capsules by mouth once daily 168 capsule 4 Active cetirizine (ZyrTEC) 10 MG tablet 1 tablet Orally Twice a day; Duration: 30 days Active calcium 500 MG tablet Take 1 (one) tablet by mouth once daily Active Other Culterell probiotic Active albuterol HFA (Proventil; Ventolin; Proair) 108 (90 Base) MCG/ACT inhaler Inhale 2 (two) puffs by mouth every 6 hours as needed Active apixaban (Eliquis) 5 MG tablet Take 1 (one) tablet by mouth 2 times daily 60 tablet 03/30/2025 5:28 PM CDT 5 Active pantoprazole EC (Protonix) 40 MG tablet Take 1 (one) tablet by mouth 2 times daily 60 tablet 1 03/30/2025 5:28 PM CDT 5 Active dronedarone (Multaq) 400 MG tablet Take 1 (one) tablet by mouth 2 times daily with morning and evening meal 60 tablet 5 Active dronedarone (Multaq) 400 MG tablet Take 1 (one) tablet by mouth 2 times daily with morning and evening meal 60 tablet 2 5 Active metoprolol succinate XL 24hr (Toprol XL) 25 MG tablet Take 1 (one) tablet by mouth once daily 90 tablet 3 03/31/2025 11:01 AM CDT 5 Active predniSONE (Deltasone) 20 MG tablet Take 2 (two) tablets by mouth daily with breakfast 2 tablet 03/31/2025 11:01 AM CDT Active Active Problems Problem Noted Date Diagnosed Date Paroxysmal atrial fibrillation 03/09/2025 Collagenous colitis 08/19/2023 Overview (08/19/2023): 08/17/23 colonoscopy for diarrhea and bloating; random biopsies show collagenous colitis, no adenomas Abdominal pain, generalized 08/14/2023 Atopic dermatitis and related condition 05/23/20 Chronic urticaria 08/23/2012 Encounters Date Type Department Care Team Description 03/29/2025 8:06 AM CDT - 03/29/2025 11:59 PM CDT Hospital Encounter [facility] - Cardiac Word Processor Operator [address] [place] [phone] Kailey Tomlin MD Discharge Disposition: Home or Self Care 03/29/2025 7:48 AM CDT Anesthesia Event [facility] - Cardiac Word Processor Operator [address] [place] [phone] Torey Staples MD Osterloh, Joan Frances, SMUDGER-CALIBRATION TESTER 03/29/2025 7:15 AM CDT - 03/29/2025 12:36 PM CDT Surgery [facility] - Cardiac Word Processor Operator [address] [place] [phone] Kailey Tomlin MD Ablation - A-fib RF 03/29/2025 5:18 AM CDT - 04/01/2025 9:44 AM CDT Hospital Encounter [facility] 8N ACUTE [address] [place] [phone] Kailey Tomlin MD Hassan, Abdalla H, MD Cardiac Catheterization Discharge Disposition: Home or Self Care 03/29/2025 Travel 03/23/2025 3:00 PM CDT - 03/23/2025 11:59 PM CDT Hospital Encounter [facility] LAB OP DRAW STATION [address] [place] [phone] Discharge Disposition: Home or Self Care 03/23/2025 2:26 PM CDT - 03/23/2025 2:56 PM CDT Hospital Encounter [facility] PAT [address] [place] [phone] Lourdes Tomlin MD Discharge Disposition: Home or Self Care 03/23/2025 Travel 03/09/2025 Telephone [facility] - Cardiology [address] [place] [phone] Nikko Tejada RN Cardiac Ablation 03/07/2025 12:31 PM CDT - 03/07/2025 11:59 PM CDT Hospital Encounter [facility] CAT SCAN [address] [place] [phone] Kailey Tomlin MD Discharge Disposition: Home or Self Care 03/07/2025 Travel 02/27/2025 Telephone [facility] - Cardiology [address] [place] [phone] Nikko Tejada RN Cardiac Ablation 02/27/2025 Telephone [facility] - Cardiology [address] [place] [phone] Kailey Tomlin MD Follow-up from Last 3 Months Social History Tobacco Use Types Packs/Day Years Used Date Smoking Tobacco: Never Smokeless Tobacco: Never Alcohol Use Standard Drinks/Week Comments Yes 0 (1 standard drink = 0.6 oz pur e alcohol) socially AUDIT-C Answer Date Recorded Q1: How often do you have a drink containing alc ohol? 2-4 times a month 03/31/2025 Q2: How many drinks containi ng alcohol do you have on a typical day when you are drinking? 1 or 2 03/31/2025 Q3: How often do you have si x or more drinks on one occasion? Never 03/31/2025 Overall Financial Resource Strain (CARDIA) Answe r Date Recorded How hard is it for you to pa y for the very basics like food, housing, medical care, and heating? Not hard at all 03/31/2025 [facility] [place] [facility] - Occupational Stress Questionnaire Answer Date Recorded Do you feel stress - tense, restless, nervous, or anxious, or unable to sleep at night because your mind is troubled all the time - these days? Only a little 03/31/2025 Hunger Vital Sign Answer Date Recorded Within the past 12 months, y ou worried that your food would run out before you got the money to buy more. Never true 03/31/20 25 Within the past 12 months, t he food you bought just didn't last and you didn't have money to get more. Never true 03/31/2025 PRAPARE - Transportation Answer Date Re corded In the past 12 months, has l ack of transportation kept you from medical appointments or from getting medications? No 03/10 In the past 12 months, has l ack of transportation kept you from meetings, work, or from getting things needed for daily living? No 03/31/2025 Housing Stability Vital Sign Answer Gatito e Recorded In the last 12 months, was t here a time when you were not able to pay the mortgage or rent on time? No 08/14/2023 In the last 12 months, how many places have you lived? 1 08/14/2023 In the last 12 months, was t here a time when you did not have a steady place to sleep or slept in a custodial (including now)? No 08/14/2023 Housing Stability Vital Sign Answer Gatito e Recorded In the last 12 months, was t here a time when you were not able to pay the mortgage or rent on time? No 03/31/2025 In the past 12 months, how m any times have you moved where you were living? 0 03/31/2025 At any time in the past 12 m [facility], were you homeless or living in a custodial (including now)? 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 Gender Identity Female 03/06/2025 4:03 PM CDT Sexual Orientation Straight 03/06/2025 4: 03 PM CDT Last Filed Vital Signs Vital Sign Reading Time Taken Comments Blood Pressure 118/81 04/01/2025 7:28 AM CDT Pulse 81 04/01/2025 7:28 AM CDT Temperature 36.4 C (97.5 F) 04/01/2025 7:28 AM CDT Respiratory Rate 20 04/01/2025 7:28 AM CDT Oxygen Saturation 99% 04/01/2025 7:28 AM CDT Inhaled Oxygen Concentration 40% 03/30/2025 9 :00 AM CDT Weight 66.2 kg (146 lb) 04/01/2025 6:46 AM CDT Height 160 cm (5' 3) 03/29/2025 6:10 AM CDT Body Mass Index 25.86 03/29/2025 6:10 AM CDT Plan of Treatment Health Maintenance Due Date Last Done Comments COLOGUARD (AGES 45-75) - COLON CA SCREENING 1970 CT COLONOGRAPHY - COLON CA SCREENING 1970 FIT - COLON CA SCREENING 1970 FLEX SIG - COLON CA SCREENING 1970 HIV SCREENING 1985 HEPATITIS C SCREENING 12/28/1987 DTAP/TDAP/TD VACCINES (1 - Tdap) 1989 HEPATITIS B VACCINE (1 of 3 - 19+ 3-dose series) 1989 PNEUMOCOCCAL VACCINE 50+ (1 of 1 - PCV) 01/02/2020 ZOSTER VACCINE (1 of 2) 01/02/2020 DEPRESSION SCREENING 08/09/2024 MAMMOGRAM 12/04/2024 12/04/2022, 04/2 03/2023, 09/18/2021, Additional history exists COVID-19 VACCINE ( - 2023- season) 2025 INFLUENZA VACCINE (#1) 2025 SCREENING FOR DIABETES 04/01/2028 , 03/31/2025, 03/31/2025, Additional history exists LIPID TESTING 03/31/2030 03/31/2025 COLON MONITORING 08/17/2033 08/17/2023, 08/17/2023 COLONOSCOPY - COLON CA SCREENING 08/17/2033 08/17/2023, 08/17/2023 Colorectal Cancer Screening 08/17/2033 HIB VACCINE Aged Out No longer eligi ble based on patient's age to complete this topic HPV VACCINE Aged Out No longer eligi ble based on patient's age to complete this topic MENINGOCOCCAL (Group B) VACCINE SHARED DECISION-MAKING Aged Out No longer eligible based on patient's age to complete this topic MENINGOCOCCAL GROUPS A/C/Y/W VACCINE Aged Out No longer eligible based on patient's age to complete this topic Procedures Procedure Name Priority Date/Time Associated Diagnosis Comments CBC W AUTO DIFFERENTIAL AM Draw 04/01/20 3:06 AM CDT PTT Routine 04/01/2025 3:06 AM CDT PT-INR Routine 04/01/2025 3:06 AM CDT PHOSPHORUS BLOOD Routine 04/01/2025 3:06 AM CDT MAGNESIUM BLOOD Routine 04/01/2025 3:06 AM CDT COMPREHENSIVE METABOLIC PANEL AM Draw 04/01/2025 3:06 AM CDT CBC W AUTO DIFFERENTIAL STAT 03/31/20 9:[address] ABDOMEN PELVIS WO CONTRAST STAT 03/31/2025 2:38 PM CDT Abdominal pain, generalized HGB HCT PANEL Routine 03/31/2025 12:44 PM CDT HGB HCT PANEL STAT 03/31/2025 5:03 AM CDT HEMOGLOBIN A1C Routine 03/31/2025 5:03 AM CDT TSH REFLEX FREE T4 Routine 03/31/2025 5: 03 AM CDT LIPID PROFILE AM Draw 03/31/2025 5:03 AM CDT CBC W AUTO DIFFERENTIAL AM Draw 03/31/20 5:03 AM CDT PTT Routine 03/31/2025 5:03 AM CDT PT-INR Routine 03/31/2025 5:03 AM CDT PHOSPHORUS BLOOD Routine 03/31/2025 5:03 AM CDT MAGNESIUM BLOOD Routine 03/31/2025 5:03 AM CDT COMPREHENSIVE METABOLIC PANEL AM Draw 03/31/2025 5:03 AM CDT PTT Timed 03/30/2025 6:16 PM CDT PTT Timed 03/30/2025 11:16 AM CDT EKG 12-LEAD Routine 03/30/2025 10:44 AM CDT Paroxysmal atrial fibrillation (HCC) BLOOD GASES ART + COOX PANEL Routine 03/30/2025 7:54 AM CDT PTT Routine 03/30/2025 4:01 AM CDT PT-INR Routine 03/30/2025 4:01 AM CDT CBC W AUTO DIFFERENTIAL Routine 03/30/20 4:01 AM CDT PHOSPHORUS BLOOD Routine 03/30/2025 4:01 AM CDT MAGNESIUM BLOOD Routine 03/30/2025 4:01 AM CDT COMPREHENSIVE METABOLIC PANEL AM Draw 03/30/2025 4:01 AM CDT CALCIUM IONIZED WHOLE BLOOD AM Draw 03/30/2025 4:01 AM CDT PTT Routine 03/29/2025 8:18 PM CDT Paroxysmal atrial fibrillation (HCC) PT-INR Routine 03/29/2025 8:18 PM CDT Paroxysmal atrial fibrillation (HCC) CBC W AUTO DIFFERENTIAL Routine 03/29/20 8:18 PM CDT Paroxysmal atrial fibrillation (HCC) XR CHEST 1VW PORTABLE STAT 03/29/2025 6:30 PM CDT Difficult airway for intubation, initial encounter EKG 12-LEAD STAT 03/29/2025 6:21 PM CDT Paroxysmal atrial fibrillation (HCC) COMPLEMENT C4 STAT 03/29/2025 4:52 PM CDT COMPLEMENT C3 STAT 03/29/2025 4:52 PM CDT COMPREHENSIVE METABOLIC PANEL STAT 03/29/2025 4:52 PM CDT PT-INR STAT 03/29/2025 4:52 PM CDT BLOOD GASES ART + COOX PANEL STAT 03/29/2025 4:52 PM CDT CBC W AUTO DIFFERENTIAL STAT 03/29/20 4:52 PM CDT PHOSPHORUS BLOOD STAT 03/29/2025 4:52 PM CDT MAGNESIUM BLOOD STAT 03/29/2025 4:52 PM CDT ACT LR - POCT ([facility]) Routine 03/29/2025 2:48 PM CDT ELECTROPHYSIOLOGY PROCEDURE Routine 03/29/2025 2:22 PM CDT Paroxysmal atrial fibrillation (HCC) ELECTROPHYSIOLOGY PROCEDURE Routine 03/29/2025 2:22 PM CDT Paroxysmal atrial fibrillation (HCC) ACT LR - POCT ([facility]) Routine 03/29/2025 2:21 PM CDT ACT LR - POCT ([facility]) Routine 03/29/2025 1:51 PM CDT ACT LR - POCT ([facility]) Routine 03/29/2025 1:30 PM CDT ACT LR - POCT ([facility]) Routine 03/29/2025 1:23 PM CDT ACT LR - POCT ([facility]) Routine 03/29/2025 1:00 PM CDT ACT LR - POCT ([facility]) Routine 03/29/2025 12:34 PM CDT ACT LR - POCT ([facility]) Routine 03/29/2025 12:10 PM CDT ACT LR - POCT ([facility]) Routine 03/29/2025 11:55 AM CDT ACT LR - POCT ([facility]) Routine 03/29/2025 11:41 AM CDT ECHO DAVID W INTERVENTION STAT 03/29/20 8:46 AM CDT Paroxysmal atrial fibrillation (HCC) ARTERIAL LINE NOTE Routine 03/29/2025 8: 32 AM CDT ENDOTRACHEAL TUBE NOTE Routine 8:24 AM CDT EKG 12-LEAD Routine 03/29/2025 6:23 AM CDT Paroxysmal atrial fibrillation (HCC) TYPE + SCREEN PANEL STAT 03/29/2025 6 :17 AM CDT PT-INR STAT 03/29/2025 6:17 AM CDT Paroxysmal atrial fibrillation (HCC) BASIC METABOLIC PANEL (CALCIUM TOTAL) STAT 03/29/2025 6:17 AM CDT Paroxysmal atrial fibrillation (HCC) CBC W AUTO DIFFERENTIAL STAT 03/29/20 6:17 AM CDT Paroxysmal atrial fibrillation (HCC) TYPE + SCREEN PANEL Routine 03/23/2025 3 :05 PM CDT Pre-op evaluation CBC W AUTO DIFFERENTIAL Routine 08/15/20 25 3:05 PM CDT Paroxysmal atrial fibrillation (HCC) BASIC METABOLIC PANEL (CALCIUM TOTAL) Routine 03/23/2025 3:05 PM CDT Paroxysmal atrial fibrillation (HCC) PT-INR STAT 03/23/2025 3:05 PM CDT Paroxysmal atrial fibrillation (HCC) CT CARDIAC ANGIO STRUCT MORPH MIESHA 03/07/2025 1:16 PM CDT Paroxysmal atrial fibrillation (HCC) ISTAT CREATININE Routine 03/07/2025 12:5 2 PM CDT ENDOSCOPY, COLON, DIAGNOSTIC Routine 08/17/2023 9:23 AM 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 APTT 24.1 23.0 - 38.4 Seconds 04/01/2025 3:49 AM CDT [facility] Comment:Suggested therapeuti c range for full dose I.V. unfractionated heparin therapy for venous thromboembolism is 71 to 109 seconds. Blood BLOOD SPECIMEN / Unknown Lab Venipuncture / Unknown 04/01/2025 3:06 AM CDT 04/01/2025 3:23 AM CDT Shazia Chavez MD LAB - COAGULATION ORDERABLES Final Result [facility] [address] [place] [phone], [facility] [phone] * (ABNORMAL) PT-INR (04/01/2025 3:06 AM CDT) Only the most recent of7 resultswithin the time period is included. PT 15.3(H) 12.1 - 14.8 Seconds 04/01/2025 3:49 AM CDT [facility] INR 1.2 See Comment 04/01/2025 3:49 AM [facility] Comment:The suggested therap eutic range for standard coumadin (warfarin) therapy is an INR of 2.0-3.0. For high-risk patients (Mechanical Mitral Valve Prosthesis, etc.), the suggested prophylactic therapeutic range is an INR of 2.5-3.5. Blood BLOOD SPECIMEN / Unknown Lab Venipuncture / Unknown 04/01/2025 3:06 AM CDT 04/01/2025 3:23 AM CDT us Shazia Chavez MD LAB - COAGULATION ORDERABLES Final Result [facility] [address] [place] [address], [facility] [phone] * (ABNORMAL) CBC W AUTO DIFFERENTIAL (04/01/2025 3:06 AM CDT) Only the most recent of8 resultswithin the time period is included. WBC 8.3 4.0 - 10.7 x10E9/L 04/01/2025 3:32 AM [facility] RBC Count 3.11(L) 3.90 - 5.20 x10E12/L 04/01/2025 3:32 AM [facility] Hemoglobin 9.8(L) 11.9 - 15.8 g/dL 04/01/2025 3:32 AM [facility] Hematocrit 30.7(L) 34.8 - 46.1 % 04/01/2025 3:32 AM [facility] MCV 98.7(H) 80.0 - 98.0 fL 04/01/2025 3:32 AM [facility] MCH 31.5 26.7 - 33.6 pg 04/01/2025 3:32 AM [facility] MCHC 31.9 31.7 - 36.3 g/dL 04/01/2025 3:32 AM [facility] RDW-CV 13.2 11.3 - 14.8 % 04/01/2025 3:32 AM [facility] Platelet Count 185 150 - 420 x10E9/L 04/01/2025 3:32 AM [facility] MPV 9.3 7.8 - 11.4 fL 04/01/2025 3:32 AM [facility] Neutrophil % 67.7 41.0 - 74.0 % 04/01/2025 3:32 AM [facility] Lymphocyte % 23.4 17.0 - 47.0 % 04/01/2025 3:32 AM [facility] Monocyte % 8.3 3.0 - 11.0 % 04/01/2025 3:32 AM [facility] Eosinophil % 0.1 0.0 - 7.0 % 04/01/2025 3:32 AM [facility] Basophil % 0.0 0.0 - 1.6 % 04/01/2025 3:32 AM [facility] Immature Granulocytes % 0.5 0.0 - 1.0 % 04/01/2025 3:32 AM [facility] Neutrophil Absolute 5.62 1.60 - 7.50 x10E9/L 04/01/2025 3:32 AM [facility] Lymphocyte Absolute 1.94 1.00 - 4.40 x10E9/L 04/01/2025 3:32 AM [facility] Monocyte Absolute 0.69 0.15 - 1.00 x10E9/L 04/01/2025 3:32 AM [facility] Eosinophil Absolute 0.01 0.00 - 0.60 x10E9/L 04/01/2025 3:32 AM [facility] Basophil Absolute 0.00 0.00 - 0.13 x10E9/L 04/01/2025 3:32 AM [facility] Blood BLOOD SPECIMEN / Unknown Lab Venipuncture / Unknown 04/01/2025 3:06 AM T 04/01/2025 3:[address] [facility] us Shazia Chavez MD LAB - HEMATOLOGY ORDERABLES Final Result [facility] [address] [place] [address], [facility] [phone] * (ABNORMAL) COMPREHENSIVE METABOLIC PANEL (04/01/2025 3:[address] [facility]) Only the most recent of4 resultswithin the time period is included. BUN 8 7 - 26 mg/dL 04/01/2025 3:52 AM [facility] Creatinine 0.63 0.56 - 0.96 mg/dL 04/01/2025 3:52 AM [facility] Sodium 139 136 - 145 mmol/L 04/01/2025 3:52 AM [facility] Potassium 4.3 3.5 - 4.5 mmol/L 04/01/2025 3:52 AM [facility] Chloride 108(H) 98 - 107 mmol/L 04/01/2025 3:52 AM [facility] CO2 22 22 - 29 mmol/L 04/01/2025 3:52 AM [facility] Glucose 98 70 - 99 mg/dL 04/01/2025 3:52 AM [facility] Calcium 8.7 8.4 - 10.2 mg/dL 04/01/2025 3:52 AM [facility] Protein Total 6.7 6.0 - 8.3 g/dL 04/01/2025 3:52 AM [facility] Albumin 3.8 3.4 - 5.0 g/dL 04/01/2025 3:52 AM [facility] Bilirubin Total 0.3 0.2 - 1.2 mg/dL 04/01/2025 3:52 AM [facility] Alkaline Phosphatase 48 40 - 150 U/L 04/01/2025 3:52 AM [facility] ALT 14 5 - 55 U/L 04/01/2025 3:52 AM [facility] AST 21 5 - 34 U/L 04/01/2025 3:52 AM [facility] Anion Gap 9 6 - 16 04/01/2025 3:52 AM [facility] BUN/Creatinine Ratio 13 7 - 23 04/01/2025 3:52 AM [facility] Osmolality Calculated 286 275 - 295 mOsm/kg 04/01/2025 3:52 AM [facility] Albumin/Globulin Ratio 1.3 1.1 - 2.3 04/01/2025 3:52 AM CDT [facility] eGFR by CKD-EPI >90 >=90 mL/min/1.7 3 m2 04/01/2025 3:52 AM CDT [facility] Comment:Estimated Glomerular Filtration Rate (eGFR) calculated using the CKD-EPI Creatinine Equation (2020), per the National Kidney Foundation and [place] [employer]ph[employer] recommendations. Blood BLOOD SPECIMEN / Unknown Lab Venipuncture / Unknown 04/01/2025 3:06 AM CDT 04/01/2025 3:23 AM CDT us Shazia Chavez MD LAB - CHEMISTRY ORDERABLES F inal Result Performing Organization Address City/[facility]/ZIP Co de Phone Number [address] [address], [facility] [phone] * (ABNORMAL) PHOSPHORUS BLOOD (04/01/2025 3:06 AM CDT) Only the most recent of4 resultswithin the time period is included. Phosphorus 2.3(L) 2.9 - 5.1 mg/dL 04/01/2025 3:52 AM CDT [facility] Blood BLOOD SPECIMEN / Unknown Lab Venipuncture / Unknown 04/01/2025 3:06 AM CDT 04/01/2025 3:23 AM CDT us Shazia Chavez MD LAB - CHEMISTRY ORDERABLES F inal Result [address] [address], [place] [phone] * MAGNESIUM BLOOD (04/01/2025 3:06 AM CDT) Only the most recent of4 resultswithin the time period is included. Magnesium 2.1 1.6 - 2.6 mg/dL 04/01/2025 3:52 AM CDT [facility] Blood BLOOD SPECIMEN / Unknown Lab Venipuncture / Unknown 04/01/2025 3:06 AM CDT 04/01/2025 3:23 AM CDT us Shazia Chavez MD LAB - CHEMISTRY ORDERABLES F inal Result [facility] [address] [place] [address], [facility] [phone] * CT Abdomen Pelvis Wo Contrast (03/31/2025 2:38 PM CDT) Anatomical Region Laterality Modality Abdomen, Pelvis Computed Tomogra phy 03/31/2025 3:54 PM CDT Impressions 03/31/2025 9:32 PM CDT Impression: 1.No acute process identified in the abdomen or pelvis. 2.Colonic diverticulosis without evidence of diverticulitis. 3.Bilateral small volume pleural effusions. > Dictated by Sharon Davenport Dr, MD (vice president of manufacturing). > Dictated by Resource Room Special Education Teacher I, Juan Rosales MD have personally reviewed and interpreted this examination/study. > Interpreting Provider: Juan Rosales MD on 03/31/2025 9:32 PM Narrative 03/31/2025 9:32 PM CDT PROCEDURE: CT ABDOMEN PELVIS WO CONTRAST, DATE/TIME OF EXAM: 03/31/2025 2:39 PM, LOCATION [facility] INDICATION: R10.84: Abdominal pain, generalized ADDITIONAL CLINICAL INFORMATION: Ordering Provider Reason For Exam: rule out retroperitoneal bleed Technologist Note: Additional: COMPARISON: CT abdomen pelvis dated 08/13/2023 TECHNIQUE: CT of the abdomen and pelvis was performed without contrast according to standard protocol. Findings: Evaluation of visceral and vascular structures is degraded due to lack of intravenous contrast administration. Lower Chest: Bilateral breast implants are partially visualized. Bilateral small volume pleural effusions with adjacent atelectasis. Liver: Within the limitations of a noncontrast examination, the liver is unremarkable with size at the upper limits of normal.. Gallbladder and Bile Ducts: Hyperattenuating material within the gallbladder likely represents sludge. Spleen: Normal. Pancreas: Normal. Adrenals: Normal. Kidneys: Normal. Gastrointestinal: The stomach and visualized loops of small bowel are unremarkable. Colonic diverticulosis without evidence of diverticulitis is seen. Status post appendectomy. Mesentery/Peritoneum/Retroperitoneum: Normal. Bladder: Air within the bladder may be secondary to recent catheterization. Reproductive Organs: The uterus is absent. Vasculature: No vascular abnormality is present. Bones: Bone windows demonstrate no suspicious lytic or blastic lesions. The visible osseous structures are intact. Soft tissues: Normal. Procedure Note Juan Rosales MD - 03/31/2025 PROCEDURE: CT ABDOMEN PELVIS WO CONTRAST, DATE/TIME OF EXAM: 03/31/2025 2:39 PM, LOCATION [facility] INDICATION: R10.84: Abdominal pain, generalized ADDITIONAL CLINICAL INFORMATION: Ordering Provider Reason For Exam: rule out retroperitoneal bleed Technologist Note: Additional: COMPARISON: CT abdomen pelvis dated 08/13/2023 TECHNIQUE: CT of the abdomen and pelvis was performed without contrast according to standard protocol. Findings: Evaluation of visceral and vascular structures is degraded due to lackof intravenous contrast administration. Lower Chest: Bilateral breast implants are partially visualized. Bilateral small volume pleural effusions with adjacent atelectasis. Liver: Within the limitations of a noncontrast examination, the liver is unremarkable with size at the upper limits of normal.. Gallbladder and Bile Ducts: Hyperattenuating material within the gallbladder likely represents sludge. Spleen: Normal. Pancreas: Normal. Adrenals: Normal. Kidneys: Normal. Gastrointestinal: The stomach and visualized loops of small bowel are unremarkable.Colonic diverticulosis without evidence of diverticulitis is seen. Status post appendectomy. Mesentery/Peritoneum/Retroperitoneum: Normal. Bladder: Air within the bladder may be secondary to recent catheterization. Reproductive Organs: The uterus is absent. Vasculature: No vascular abnormality is present. Bones: Bone windows demonstrate no suspicious lytic or blastic lesions. The visible osseous structures are intact. Soft tissues: Normal. Impression: 1.No acute process identified in the abdomen or pelvis. 2.Colonic diverticulosis without evidence of diverticulitis. 3.Bilateral small volume pleural effusions. > Dictated by Sharon Davenport Dr, MD (vice president of manufacturing). > Dictated by Resource Room Special Education Teacher I, Juan Rosales MD have personally reviewed and interpreted this examination/study. > Interpreting Provider: Juan Rosales MD on 59:32 PM Shazia Chavez MD CT ORDERABLES Final Result * (ABNORMAL) HGB HCT PANEL (03/31/2025 12:44 PM CDT) Only the most recent of2 resultswithin the time period is included. Pathologist [facility] [place] Hemoglobin 8.4(L) 11.9 - 15.8 g/dL 03/31/2025 1:01 PM CDT [facility] Hematocrit 24.6(L) 34.8 - 46.1 % 03/31/2025 1:01 PM CDT [facility] Blood BLOOD SPECIMEN / Unknown Venipuncture / Unknown 03/31/2025 12:44 PM CDT 03/31/2025 12:54 PM CDT Shazia Chavez MD LAB - HEMATOLOGY ORDERABLES Final Result [address] [address], [facility] [phone] * TSH REFLEX FREE T4 (03/31/2025 5:03 AM CDT) [facility] TSH 0.498 0.350 - 4.940 uIU/mL 03/31/2025 6:56 AM CDT [facility] Blood BLOOD SPECIMEN / Unknown Lab Venipuncture / Unknown 03/31/2025 5:03 AM CDT 03/31/2025 6:04 AM CDT Shazia Chavez MD LAB - CHEMISTRY ORDERABLES F inal Result [address] [address], [place] [phone] * HEMOGLOBIN A1C (03/31/2025 5:03 AM CDT) Pathologist [facility] [place] Hemoglobin A1c 5.0 <=5.6 % 03/31/2025 1:45 PM [facility] Estimated Average Glucose 97 mg/dL 03/31/2025 1:45 PM [facility] Comment: HbA1c Interpretation: Normal : < 5.7% Pre-diabetes: 5.7-6.4% Diabetes: Equal to or greater than 6.5% Test results diagnostic of diabetes should be repeated for confirmation. Treatment target values recommended by ADA and other clinical organizations should be used to evaluate metabolic control in patients. Reference: [place] [employer], Standards of Care in Diabetes -2020 In patients 70 years and older consider HbA1c target range of 7.0-7.5% (Reference: Zion Adkins et al. JAMDA. 2012) The Sebia assay for the measurement of HbA1c is a National Glycohemoglobin Standardization Program (NGSP) certified method. Blood BLOOD SPECIMEN / Unknown Lab Venipuncture / Unknown 03/31/2025 5:03 AM CDT 03/31/2025 6:00 AM CDT Shazia Chavez MD LAB - CHEMISTRY ORDERABLES F inal Result [facility] [address] [place] [address], [facility] [phone] * (ABNORMAL) LIPID PROFILE (03/31/2025 5:03 AM T) Cholesterol Total 177 <200 mg/dL 03/31/2025 6:43 AM [facility] HDL 56 >40 mg/dL 03/31/2025 6:43 AM [facility] Comment: ATP III Classification of HDL Cholesterol: <40 mg/dL: Considered a major risk factor. >60 mg/dL: Considered a negative risk factor. LDL Calculated 109(H) <100 mg/dL 03/31/2025 6:43 AM [facility] Comment: ATP III Classification of LDL Cholesterol: <100 mg/dL: Optimal 100 - 129 mg/dL: Near Optimal/Above Optimal 130 - 159 mg/dL: Borderline High 160 - 189 mg/dL: High >190 mg/dL: Very High LDL is calculated using the Friedewald equation. Triglycerides 58 <150 mg/dL 03/31/2025 6:43 AM CDT [facility] Comment: ATP III Classification of Triglycerides: <150 mg/dL: Normal 150 - 199 mg/dL: Borderline High 200 - 400 mg/dL: High >500 mg/dL: Very High Blood BLOOD SPECIMEN / Unknown Lab Venipuncture / Unknown 03/31/2025 5:03 AM CDT 03/31/2025 6:04 AM CDT Shazia Chavez MD LAB - CHEMISTRY ORDERABLES F inal Result [facility] [address] [place] [address], [facility] [phone] * EKG 12-Lead (03/30/2025 10:44 AM CDT) Only the most recent of3 resultswithin the time period is included. Ventricular Rate 95 BPM SL MUSE Atrial Rate 95 BPM [facility] MUSE P-R Interval 130 ms [facility] MUSE QRS Duration ms 80 ms [facility] MUSE Q-T Interval ms 382 ms [facility] MUSE QTC Calculation (Bezet) 480 ms [facility] MUSE Calculated P [place] 64 degrees [facility] MUSE Calculated R [place] 39 degrees SL MUSE Calculated T [place] 50 degrees SL MUSE Interpretation EKG NORMAL SINUS RHYTHM LOW VOLTAGE QRS PROLONGED QT ABNORMAL ECG WHEN COMPARED WITH ECG OF 29-MAR-2025 06:23, PREMATURE VENTRICULAR COMPLEXES ARE NO LONGER PRESENT Confirmed by MD DO, CHRISTOPHER ([id number]) on 03/31/2025 8:27:22 AM [facility] MUSE 03/30/2025 10:4 4 AM CDT 03/31/2025 8:27 AM CDT Shazia Chavez MD ECG ORDERABLES Edited Resul t - Final Performing Organization Address [facility]/ZIP Co de Phone Number [facility] MUSE * (ABNORMAL) BLOOD GASES ART + COOX PANEL (03/30/2025 7:54 AM CDT) Only the most recent of2 resultswithin the time period is included. pH Arterial 7.39 7.35 - 7.45 pH 03/30/2025 8:06 AM [facility] pO2 Arterial 145(H) 80 - 100 mmHg 03/30/2025 8:06 AM [facility] pCO2 Arterial 32(L) 35 - 45 mmHg 8:06 AM [facility] HCO3 Arterial 19.4(L) 20.0 - 30.0 mmol/L 03/30/2025 8:06 AM [facility] BE Arterial -4.8(L) -2.0 - 2.0 mmol/L 03/30/2025 8:06 AM [facility] Oxyhemoglobin Arterial 97.2 % 03/30/2025 8:06 AM [facility] Dexoyhemoglobin (HHB) % <1.0 % 03/30/2025 8:06 AM [facility] Methemoglobin 1.0 0.0 - 2.0 % 03/30/2025 8:06 AM [facility] Carboxyhemoglobin 1.2 0.0 - 2.0 % 2024 8:06 AM [facility] O2 Content Arterial 14.9 Interpret within clinical context ml/dL 03/30/2025 8:06 AM [facility] Hemoglobin by COOX 10.7(L) 12.0 - 15.6 g/dL 03/30/2025 8:06 AM [facility] O2 Saturation Arterial 99 90 - 100 % 03/30/2025 8:06 AM [facility] FI O2 Arterial 40.0 % 03/30/2025 8:06 AM [facility] Blood, arterial ARTERIAL BLOOD SPECIMEN / Unknown Arterial Puncture / Unknown 03/30/2025 7:54 AM T 03/30/2025 8:[address] [facility] - 03/30/2025 8:[address] [facility] Carboxyhemoglobin Normal Concentration: Non-smokers: 0-2%; Smokers: 0-9%; Toxic: >20% us Shazia Chavez MD LAB - BLOOD GASES ORDERABLES Final Result [id number] [place] [address], [facility] [phone] * (ABNORMAL) CALCIUM IONIZED WHOLE BLOOD (03/30/2025 4:01 AM CDT) Calcium Ionized 1.11 mmol/L 03/30/2025 4:36 AM CDT [facility] pH 7.43 7.35 - 7.45 pH 03/30/2025 4:36 AM CDT [facility] Ionized Calcium pH Adjusted 1.12(L) 1.19 - 1.34 mmol/L 03/30/2025 4:36 AM CDT [facility] Blood BLOOD SPECIMEN / Unknown Venipuncture / Unknown 03/30/2025 4:01 AM CDT 03/30/2025 4:12 AM CDT us Shazia Chavez MD LAB - CHEMISTRY ORDERABLES F inal Result [id number] [place] [address], [facility] [phone] * XR Chest 1Vw Portable (03/29/2025 6:30 PM CDT) Anatomical Region Laterality Modality Chest Digital Radiogra phy 03/30/2025 1:57 PM CDT Impressions 03/30/2025 1:58 PM CDT Impression: Endotracheal tube terminates 2.6 cm above the rony. There is no focal consolidation.There is no pleural effusion.There is no pneumothorax. The cardiomediastinal silhouette is stable. > Interpreting Provider: Familia Ramirez MD on 03/30/2025 1:58 PM Narrative 03/30/2025 1:58 PM CDT PROCEDURE: XR CHEST 1VW PORTABLE, DATE/TIME OF EXAM: 03/29/2025 7:04 PM, LOCATION [facility] INDICATION: T88.4XXA: Difficult airway for intubation, initial encounter ADDITIONAL CLINICAL INFORMATION: Ordering Provider Reason For Exam: ETT placement Technologist Note: Additional: COMPARISON: None. Procedure Note Familia Ramirez MD - 03/30/2025 PROCEDURE: XR CHEST 1VW PORTABLE, DATE/TIME OF EXAM: 03/29/2025 7:04PM, LOCATION [facility] INDICATION: T88.4XXA: Difficult airway for intubation, initial encounter ADDITIONAL CLINICAL INFORMATION: Ordering Provider Reason For Exam: ETT placement Technologist Note: Additional: COMPARISON: None. Impression: Endotracheal tube terminates 2.6 cm above the rony. There is no focal consolidation.There is no pleural effusion.There is no pneumothorax. The cardiomediastinal silhouette is stable. > Interpreting Provider: Familia Ramirez MD on 03/30/2025 1:58 PM Shazia Chavez MD DIAGNOSTIC IMAGING ORDERABLE S Final Result * COMPLEMENT C4 (03/29/2025 4:52 PM CDT) Complement C4 19 15 - 57 mg/dL 03/29/2025 5:28 PM CDT [facility] Blood BLOOD SPECIMEN / Unknown Venipuncture / Unknown 03/29/2025 4:52 PM CDT 03/29/2025 5:01 PM CDT Shazia Chavez MD LAB - SEROLOGY ORDERABLES Fi nal Result [address] [address], [place] [phone] * COMPLEMENT C3 (03/29/2025 4:52 PM CDT) Complement C3 97 82 - 193 mg/dL 03/29/2025 5:28 PM CDT [facility] Blood BLOOD SPECIMEN / Unknown Venipuncture / Unknown 03/29/2025 4:52 PM CDT 03/29/2025 5:01 PM CDT Shazia Chavez MD LAB - CHEMISTRY ORDERABLES F inal Result Performing Organization Address City/[facility]/ZIP Co de Phone Number [address] [address], [place] [phone] * ACT LR - POCT ([facility]) (03/29/2025 2:48 PM CDT) Only the most recent of10 resultswithin the time period is included. ACT LR 128 See result comments sec 04/02/2025 7:09 AM CDT [facility] Blood BLOOD SPECIMEN / Unknown 03/29/2025 2:48 PM CDT 04/02/2025 7:09 AM CDT Narrative [facility] - 04/02/2025 7:09 AM CDT ACT-LR [employer]rapeutics ranges are: Cardiac laborer pie bakery = 200-300 seconds Sheath pull = ACT less than 170 seconds EPS lab = 200-240 seconds Sheath pull = ACT less than 140 seconds Radiology : CT/Angio lab = 200-300 seconds Sheath pull = ACT less than 200 seconds Expected range of normal volunteers: ACT-LR = 113-149 seconds Expected range of a Non-heparin patients: ACT-LR = 89-169 seconds From established ranges from the company manual Kailey Tomlin MD LAB - COAGULATION ORDERABLES [facility] al Result [facility] [address] [place] [address], [facility] [phone] * CCL ABLATION ATRIAL FIB RF, CCL INTRA PROCEDURE DAVID (03/29/2025 2:22 PM CDT) Anatomical Region Laterality Modality X-Ray Angiograph y Narrative 04/11/2025 9:26 PM CDT 1. PVI isolation for atrial fibrillation . Procedure Details Estimated Blood Loss: 10 mL Procedure Details and Comments: After informed consent was obtained, the patient was taken to the EP lab in a fasting and post-absorptive state. Pre-procedure DAVID was preformed which was negative for KEY thrombus. The patient was prepped and draped in a sterile fashion. General anesthesia was used for sedation. Carto location pads were positioned under the table and the external reference patch placed on the patient for 3-Dimensional mapping with the Carto-3 mapping system. One percent Lidocaine was given in the right and left groin. The patient was noted to be in normal sinus rhythm at baseline. Two 9 Fr sheaths were placed in the right femoral vein and 6 Fr, 7Fr, and 9 Fr sheaths were placed in the left femoral vein. A deflectable RV and CS catheter was advanced under fluoroscopic guidance to the RV and CS positions. An ICE probe was advanced under fluoroscopic guidance through the 9 Fr sheath to the RA. A 3D Sound map of the left atrium was created. This image was merged with the pre-procedure CT of the left atrium. The two 9 Fr sheaths in the RFV were exchanged for an Agilis sheath and SL1 sheath. Transeptal puncture was performed twice with fluoroscopic and intracardiac echo guidance. SL1 sheaths and the Agilis sheaths were positioned in the left atrium. PVI was performed using Biosense Pederson irrigated tip catheter. EGM guidance recorded from the Lasso catheter placed in the pulmonary veins and 3D electro-anatomic mapping were used to guide the ablation. The RF power was titrated to 20-35 pizano. Careful attention was paid to esophageal temperatures throughout the procedure. Heparin was given throughout the procedure to maintain an ACT of approximately 350 seconds. Intracardiac echo confirmed no pericardial effusion at the end of the procedure. Transeptal sheaths were exchanged to 9Fr sheaths. Protamine was administered after a test dose was given to reverse anticoagulation. All catheters were removed and the patient was eventually transferred to the PACU/holding area. Of note, post procedure the patient was noted to have tongue swelling felt to either be secondary to traumatic intubation at the onset of the procedure or a drug reaction to protamine or zofran. Steriods and benedryl were administered. No other airway compromise or hemodynamic instability was noted. ENT evaluated the patient and recommend maintaining intubation overnight for airway protection. EP Study: RR- 626 ms MA-159 ms QT-397 ms QRS- 63 ms AH-71 ms HV-41 ms us Kailey Tomlin MD CV ELECTROPHYSIOLOGY CUPID PROCS Final Result * ECHO DAVID W INTERVENTION (03/29/2025 8:46 AM CDT) Anatomical Region Laterality Modality Ultrasound 03/29/2025 8:32 AM CDT Narrative 04/05/2025 4:26 PM CDT Patient Info Name: Radha Wu Age: 55 years : 1970 Gender: Female Exam Date: 03/29/2025 8:32 AM Patient Status: [facility] Study Site: [facility] Primary Location: [facility] EStudy Info Exam Type: ECHO DAVID W INTERVENTION Indications I48.0 - Paroxysmal atrial fibrillation (HCC) * A transesophageal echocardiogram is performed. Staff Referring Physician: Kailey Tomlin Ordering Provider: Kailey Tomlin Attending Physician: Kailey Tomlin Beater Worker Helper: Israel Esparza Procedure Details The patient arrived in a fasting state after obtaining informed consent. The transesophageal probe was passed without difficulty into the posterior pharynx, mid-esophagus, and distal esophagus. Imaging was performed at multiple levels. The patient tolerated the procedure well and there were no complications. The patient was transferred out of the examination area in satisfactory condition. Probe passed by the traffic superintendent without difficulty. Atrial Appendage The left atrial appendage was interrogated with PW doppler, color flow, and echo contrast. No KEY thrombus was noted. Report Signatures Finalized by Kailey Tomlin on 04/05/2025 04:26 PM Procedure Note Kailey Tomlin MD - 04/05/2025 Patient Info Name: Radha Wu Age: 55 years : 1970 Gender: Female Exam Date: 03/29/2025 8:32 AM Patient Status: [facility] [facility] Study Site: [facility] Primary Location: [facility] Info Exam Type: ECHO DAVID W INTERVENTION Indications I48.0 - Paroxysmal atrial fibrillation (HCC) * A transesophageal echocardiogram is performed. Staff Referring Physician: Kailey Tomlin Ordering Provider: Kailey Tomlin Attending Physician: Kailey Tomlin Beater Worker Helper: Israel Esparza Procedure Details The patient arrived in a fasting state after obtaining informedconsent. The transesophageal probe was passed without difficulty into theposterior pharynx, mid-esophagus, and distal esophagus. Imaging was performed at multiple levels. The patient tolerated the procedure well and there wereno complications. The patient was transferred out of the examination areain satisfactory condition. Probe passed by the traffic superintendent withoutdifficulty. Atrial Appendage The left atrial appendage was interrogated with PW doppler, color flow,and echo contrast. No KEY thrombus was noted. Report Signatures Finalized by Kailey Tomlin on 04/05/2025 04:26 PM Kailey Tomlin MD ECHO CUPID Final Result * ARTERIAL LINE PERFORMABLE (03/29/2025 8:32 AM CDT) Narrative Jeaneth Henning APRN-CRNA - 03/29/2025 8:32 AM CDT Jeaneth Henning APRN-CRNA 03/29/2025 8:36 AM Arterial Line Placement Procedure Note Patient Location: OR. Insertion Time: 03/29/2025 8:15 AM Procedure: Arterial Line ([id number]) Procedure Section Indications: continuous blood pressure monitoring and blood sampling needed. Skin Prep: Chloraprep. Orientation: Left. Site: radial. Site Identification: ultrasound guided with sterile sleeve and gel. Sterile Technique: small sterile fenestrated drape, sterile gloves, mask and cap. Gauge: 20. Seldinger Technique Used? Yes Number of Attempts: 1. Line Secured with: Tegaderm and tape. Procedure Tolerance: tolerated well. Events: none. Patient Sedated? Yes Local Anesthetic Used? No Sedation Types: general anesthesia Staff Section Anesthesia Provider: Eusebio Bahena, Performed the procedure Provider #1: Jeaneth Henning APRN-CRNA. Provider #2: Torey Staples MD. Additional Comments: Atraumatic placement of Sarah.. Torey Staples MD GENERAL ANESTHESIA ORDERABLE S Final Result * ETT LINE PERFORMABLE (03/29/2025 8:24 AM CDT) Narrative Torey Staples MD - 03/29/2025 8:24 AM CDT Torey Staples MD 03/29/2025 8:29 AM Endotracheal Tube Placement: Patient Location: OR. Intubation Event Date/Time: 03/29/2025 8:10 AM Procedure: intubation ([id number]) Procedure Section: Sedation: IV sedation. Indications for Airway Management: airway protection Induction: standard IV Patient Position: sniffing Mask Ventilation: easy. Blade Type: Karuna Blade Size: 3 Laryngoscopy View: grade 1 (full cords) Intubation Adjuncts: stylet Tube: endotracheal tube Placement: oral Tube type: cuff - inflated Tube Size (MM): 7 Measured From: teeth Cuff Inflated With: air Number of Attempts: Other - please comment (4). Ventilation between attempts: Yes. Placement Verified By: direct visualization, bilateral breath sounds, chest auscultation and CO2 monitor CXR Findings: ETT in proper place. Tube secured with: adhesive tape. Dentition unchanged? Yes Difficult Airway? Yes. Technique: video laryngoscope Reason: anterior larynx Procedure Start Time: 03/29/2025 8:10 AM. Staff Section Provider #1: Torey Staples MD, Performed the procedure. Additional Comments: Able to mask throughout without difficulty. Attempt x2 by SRNA, blade changed and masked between. Bougie attempted but unable to visualize sufficiently. Attempt #3 by Jeaneth Henning CRNA w/ grade IV view as videoscope called for. Provue MAC 4 successful by MD Jhoan. Torey Staples MD GENERAL ANESTHESIA ORDERABLE S Final Result * TYPE + SCREEN PANEL (03/29/2025 6:17 AM CDT) Only the most recent of2 resultswithin the time period is included. [facility] Antibody Screen NEG 7:26 AM CDT [facility] BLOOD BANK LAB ABO Rh A POS 03/29/2025 7:26 AM CDT [facility] BLOOD BANK LAB Blood Bank BLOOD SPECIMEN / Unknown Venipuncture / Unknown 03/29/2025 6:17 AM CDT 03/29/2025 6:29 AM CDT Samantha Reeves SMUDGER-DUCT LAYER SUPERVISOR LAB - BLOOD BANK ORDERABLE S Final Result [facility] BLOOD BANK LAB [address] [place] [address], [place] [phone] * BASIC METABOLIC PANEL (CALCIUM TOTAL) (03/29/2025 6:17 AM CDT) Only the most recent of2 resultswithin the time period is included. [facility] BUN 14 7 - 26 mg/dL 03/29/2025 6:56 AM CDT [facility] Creatinine 0.75 0.56 - 0.96 mg/dL 03/29/2025 6:56 AM [facility] Sodium 139 136 - 145 mmol/L 03/29/2025 6:56 AM [facility] Potassium 3.8 3.5 - 4.5 mmol/L 03/29/2025 6:56 AM [facility] Chloride 106 98 - 107 mmol/L 03/29/2025 6:56 AM [facility] CO2 25 22 - 29 mmol/L 03/29/2025 6:56 AM [facility] Glucose 76 70 - 99 mg/dL 03/29/2025 6:56 AM [facility] Calcium 9.4 8.4 - 10.2 mg/dL 03/29/2025 6:56 AM [facility] Anion Gap 8 6 - 16 03/29/2025 6:56 AM [facility] BUN/Creatinine Ratio 19 7 - 23 03/29/2025 6:56 AM [facility] Osmolality Calculated 287 275 - 295 mOsm/kg 03/29/2025 6:56 AM [facility] eGFR by CKD-EPI >90 >=90 mL/min/1.7 3 m2 03/29/2025 6:56 AM [facility] Comment:Estimated Glomerular Filtration Rate (eGFR) calculated using the CKD-EPI Creatinine Equation (2020), per the National Kidney Foundation and [place] Society of Neph[employer] recommendations. Blood BLOOD SPECIMEN / Unknown Venipuncture / Unknown 03/29/2025 6:17 AM CDT 03/29/2025 6:27 AM CDT Samantha Reeves SMUDGER-DUCT LAYER SUPERVISOR LAB - CHEMISTRY ORDERABLES Final Result [facility] [address] [place] [address], [facility] [phone] * CT Cardiac Angio Struct Morph (03/07/2025 1:16 PM CDT) Anatomical Region Laterality Modality Chest Computed Tomogra phy 03/07/2025 1:42 PM CDT Impressions 03/08/2025 6:04 AM CDT Impression: Pulmonary vein measurements as described above for left atrial ablation. > Dictated by Jose Guadalupe Maldonado DO (vice president of manufacturing). > Dictated by Resource Room Special Education Teacher I, Juan Rosales MD have personally reviewed and interpreted this examination/study. > Interpreting Provider: Juan Rosales MD on 03/08/2025 6:04 AM Narrative 03/08/2025 6:04 AM CDT Procedure: CTA Chest with contrast Indication: I48.0: Paroxysmal atrial fibrillation (HCC) Comparison: None Technique: Pulmonary Vein Protocol. Contrast enhanced High pitch dual source non-ECG gated CTA of the heart was performed with a total of mL Isovue 370 intravenous contrast at a rate of [' mL/sec without adverse reaction. If IV contrast material had not been administered, the likelihood of detecting abnormalities relevant to the patient's condition would have been substantially decreased. Serum creatinine was 0.55 mg/dL on 08/19/2023. Complex image reconstruction post processing was likewise performed as indicated to increase the sensitivity of detecting clinically relevant pathology. Findings: Pulmonary Veins and Left Atrium: The left atrium is of normal size without filling defects. There are 4 pulmonary veins entering the left atrium in a typical fashion. The esophagus is mildly patulous and lies directly posterior to the center of the left atrium as well as posterior to the junction of the left lower lobe pulmonary vein and the left atrium. The left atrial appendage lies anterior to the junction of the inferior left pulmonary vein in the left atrium. Pulmonary Vein and Left Atrial Measurements Left upper lobe pulmonary vein: 15 x 12 mm Left lower lobe pulmonary vein: 17 x 13 mm Right upper lobe pulmonary vein: 17 x 13 mm Right middle lobe pulmonary vein: 12 x 11 mm Common trunk of right upper and right middle lobe pulmonary vein: 18 x 17 mm Right lower lobe pulmonary vein: 17 x 15 mm Cardiac Chambers: Normal without evidence of thrombus or prior myocardial infarction. Coronary Arteries: Small calcified plaques noted in the proximal LAD, otherwise coronary arteries are unremarkable. No significant luminal stenosis seen. Non-vascular: Bilateral breast implants are seen. No other abnormalities seen. Procedure Note Juan Rosales MD - 03/08/2025 Procedure: CTA Chest with contrast Indication: I48.0: Paroxysmal atrial fibrillation (HCC) Comparison: None Technique: Pulmonary Vein Protocol. Contrast enhanced High pitch dual source non-ECG gated CTA of the heart was performed with a total of mL Isovue 370 intravenous contrast at a rate of [' mL/sec without adverse reaction. If IV contrast material had not been administered, thelikelihood of detecting abnormalities relevant to the patient's condition wouldhave been substantially decreased. Serum creatinine was 0.55 mg/dL on 08/19/2023. Complex image reconstruction post processing was likewise performed as indicated to increase the sensitivity of detecting clinically relevant pathology. Findings: Pulmonary Veins and Left Atrium: The left atrium is of normal size without filling defects. There are 4 pulmonary veins entering the left atrium in a typical fashion. The esophagus is mildly patulous and lies directly posterior to thecenter of the left atrium as well as posterior to the junction of the leftlower lobe pulmonary vein and the left atrium. The left atrial appendage lies anterior to the junction of the inferior left pulmonary vein in the left atrium. Pulmonary Vein and Left Atrial Measurements Left upper lobe pulmonary vein: 15 x 12 mm Left lower lobe pulmonary vein: 17 x 13 mm Right upper lobe pulmonary vein: 17 x 13 mm Right middle lobe pulmonary vein: 12 x 11 mm Common trunk of right upper and right middle lobe pulmonary vein: 18 x17 mm Right lower lobe pulmonary vein: 17 x 15 mm Cardiac Chambers: Normal without evidence of thrombus or priormyocardial infarction. Coronary Arteries: Small calcified plaques noted in the proximal LAD, otherwise coronary arteries are unremarkable. No significant luminal stenosis seen. Non-vascular: Bilateral breast implants are seen. No other abnormalities seen. Impression: Pulmonary vein measurements as described above for left atrial ablation. > Dictated by Jose Guadalupe Maldonado DO (vice president of manufacturing). > Dictated by Resource Room Special Education Teacher I, Juan Rosales MD have personally reviewed and interpreted this examination/study. > Interpreting Provider: Juan Rosales MD on 56:04 AM Kailey Tomlin MD CT ORDERABLES Final Result * (ABNORMAL) ISTAT CREATININE (03/07/2025 12:52 PM CDT) Creatinine POCT 0.80 0.60 - 1.30 mg/dL 03/07/2025 12:54 PM CDT [facility] eGFR by CKD-EPI 87(L) >90 mL/min/1.7 3 m2 03/07/2025 12:54 PM CDT [facility] Blood BLOOD SPECIMEN / Unknown 03/07/2025 12:52 PM CDT 03/07/2025 12:54 PM CDT us Kailey Tomlin MD LAB - POINT OF CARE ORDERABLES F inal Result [facility] [address] [place] [address], [facility] [phone] * ENDOSCOPY, COLON, DIAGNOSTIC (08/17/2023 9:23 AM 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 Description of Procedure: Pre-Anesthesia Assessment: - Prior to the procedure, a History and Physical was performed, and patient medications and allergies were reviewed. The patient's tolerance of previous anesthesia was also reviewed. The risks and benefits of the procedure and the sedation options and risks were discussed with the patient. All questions were answered, and informed consent was obtained. Prior Anticoagulants: The patient has taken no anticoagulant or antiplatelet agents. ASA Grade Assessment: II - A patient with mild systemic disease. After reviewing the risks and benefits, the patient was deemed in satisfactory condition to undergo the procedure. After I obtained informed consent, the scope was passed under direct vision. Throughout the procedure, the patient's blood pressure, pulse, and oxygen saturations were monitored continuously. The Colonoscope was introduced through the anus and advanced to the terminal ileum. The colonoscopy was performed without difficulty. The patient tolerated the procedure well. The quality of the bowel preparation was evaluated using the BBPS ([place] Bowel Preparation Scale) with scores of: Right Colon = 3, Transverse Colon = 3 and Left Colon = 3 (entire mucosa seen well with no residual staining, small fragments of stool or opaque liquid). The total BBPS score equals 9. The terminal ileum, ileocecal valve, appendiceal orifice, and rectum were photographed. Findings: The perianal and digital rectal examinations were normal. A 3 mm polyp was found in the sigmoid colon. The polyp was sessile. The polyp was removed with a jumbo cold forceps. Resection and retrieval were complete. A 7 mm polyp was found in the rectum. The polyp was sessile. The polyp was removed with a cold snare. Resection and retrieval were complete. Multiple linear erosions and ulcerations were found localized in the sigmoid colon and in the descending colon. Biopsies were taken with a cold forceps for histology. A few medium-mouthed diverticula were found in the sigmoid colon. Biopsies were taken with a cold forceps in the descending colon, in the transverse colon and in the ascending colon for histology. To stop active bleeding from one of the biopsy sites, one hemostatic clip was successfully placed in the descending colon. There was no bleeding at the end of the procedure. The terminal ileum appeared normal. Biopsies were taken with a cold forceps for histology. No additional abnormalities were found on retroflexion. Estimated Blood Loss: Estimated blood loss: none. Complications: No immediate complications. Impression: - One 3 mm polyp in the sigmoid colon, removed with a jumbo cold forceps. Resected and retrieved. - One 7 mm polyp in the rectum, removed with a cold snare. Resected and retrieved. - Multiple ulcers in the sigmoid colon and in the descending colon. Biopsied. - Diverticulosis in the sigmoid colon. - The examined portion of the ileum was normal. Biopsied. - Biopsies were taken with a cold forceps for histology in the descending colon, in the transverse colon and in the ascending colon. - One hemostatic clip was successfully placed in the descending colon for post-biopsy bleeding. Recommendation: - Return patient to hospital [facility] for ongoing care. - Advance diet as tolerated. - Continue present medications. - Await pathology results. - Repeat colonoscopy for surveillance based on pathology results. Attending Participation: I was present and participated during the entire procedure, including non-farrell portions. Procedure Code(s): --- Professional --- 17759, 59, Colonoscopy, flexible; with control of bleeding, any method 89283, Colonoscopy, flexible; with removal of tumor(s), polyp(s), or other lesion(s) by snare technique 72643, 59, Colonoscopy, flexible; with biopsy, single or multiple Diagnosis Code(s): --- Professional --- D12.5, Benign neoplasm of sigmoid colon D12.8, Benign neoplasm of rectum K63.3, Ulcer of intestine R19.7, Diarrhea, unspecified CPT copyright 2021 [employer]. All rights reserved. The codes documented in this report are preliminary and upon butcher's assistant review may be revised to meet current compliance requirements. Jorge Luis Mckay MD 08/17/2023 10:30:40 AM This report has been signed electronically. 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 Jorge Luis Fisher MD GI PROCEDURE ORDER ALTAGRACIA Edited Result - Final [facility] [employer] from Last 3 Months or Most Recently Relevant to Health Maintenance Insurance [facility] Advance Directives * Full Code (Latest Code Status on File) Date Activated Date Inactivated Comments 03/29/2025 2:53 PM 04/01/2025 10:49 AM * Full Code Date Activated Date Inactivated Comments 08/14/2023 7:40 AM 08/19/2023 2:32 PM Care Teams Data Entry Processor Relationship Specialty Start Date End Date Marcia Abrams APRN-CNP [address] [place] [address] [address] [place] [address] PCP - General Nurse Practitioner 08/20/23
--- OUTSIDE RECORDS SUMMARY | 2025-05-01 11:24 | XMS_ITS | Clinical Summary ---
Author Organization [facility] Address [address] [facility] [place] [address] Phone Care Team Providers Care Autocad Draftsman Name Role Phone Jorge Luis Weems MD Unavailable Unavailab Marcia Meier APRN Primary Care Provider [phone] Kailey Tomlin MD Unavailable Allergies Active Allergy Reactions Criticality Noted Date Comments Sulfamethoxazole-Trimet hoprim Rash Medium 11/29/2020 Polyethylene Glycol Runny Nose,Itching Low 09/25/19 25 Sulfur Hexaflouride Lipid A Microspheres Other (see Comments) Medium 09/25/2024 30 seconds after administration, patient began sneezing, complained of itching to palms of hands, then itching to soles of the feet. No treatment needed and able to complete test. Medications albuterol (Ventolin HFA) 108 (90 Base) MCG/ACT Aerosol Solution take 2 Puffs by inhalation every 4 hours as needed for Wheezing. 8.5 g 05/21/20 20 Active other 500 mg by Other route every morning. Reactive C Active BIOTIN FORTE PO Take by mouth every morning. Active Cholecalciferol (VITAMIN D3 PO) Take by mouth every morning. Active albuterol (PROVENTIL, VENTOLIN) (2.5 MG/3ML) 0.083% Nebulizer Soln 2.5 mg by Nebulization route every 6 hours as needed. Active Multiple Vitamin (MULTI-VITAMIN PO) Take by mouth every morning. Active ALPRAZolam (XANAX) 0.25 MG TabletIndication s:Anxiety Take 1 Tablet by mouth 2 times daily. 15 Tablet 08/05/20 Active Dupilumab (Dupixent) 300 MG/2ML Solution Auto-injector 4 mL by Subcutaneous route every 14 days. Last dose 09/22/24 Active metoprolol Succinate (TOPROL-XL) 50 MG TABLET SR 24 HR Take 1 Tablet by mouth daily. 90 Tablet 1 12/21/19 Active FAMOTIDINE PO Take 8 mg by mouth daily. Active Eliquis 5 MG TabletIndication s:Atrial Fibrillation Take 1 Tablet by mouth 2 times daily. Indications: Atrial Fibrillation 180 Tablet 3 04/26/20 25 Active Eliquis 5 MG Tablet 03/30/20 25 025 Discontin ued(Reord er) Active Problems Problem Noted Date Diagnosed Date Atrial fibrillation with RVR 09/23/2024 Elevated blood pressure reading 07/29/2018 Dermatitis 03/15/2017 Gastroesophageal reflux disease without esophagi tis 08/11/2016 Bronchitis 08/11/2016 Palpitations 08/11/2016 Asthma Hives Encounters Date Type Department Care Team Description 04/25/2025 [facility] [address] [place] [phone] Kailey Tomlin MD Medication Refill 04/03/2025 Telephone [facility] [address] [place] [id number] Kailey Tomlin MD Advice Only 04/02/2025 Telephone [facility] [address] [place] [address] Kailey Tomlin MD Letter for School/Work 03/21/2025 3:30 PM CDT Office Visit [facility] Cardiology [facility] [address] [place] [address] Kailey Tomlin MD Paroxysmal atrial fibrillation (HCC) (Primary Dx) Discharge Disposition: Discharged to home or Selfcare 03/21/2025 Travel from Last 3 Months Immunizations Immunization Administration Dates Next Due TD VACCINE 02/06/2015 Family History Medical History Relation Name Comments Alcohol Abuse Father Cancer Father esophagus, lung No Known Problems Mother Stroke Paternal Grandfather Relation Name Status Comments Father Mother Paternal Grandfather Social History Tobacco Use Types Packs/Day Years Used Date Smoking Tobacco: Never Smokeless Tobacco: Never Tobacco Cessation:Counseling Given: Not Answered Alcohol Use Standard Drinks/Week Comments Yes 3 (1 standard drink = 0.6 oz pur e alcohol) [facility] Utilities Answer Date Recorded In the past 12 months has [employer] electric, gas, oil, or water company threatened to shut off services in your home? Patient declined 09/23/2024 Social Connection and Isolation Panel Answer Date Recorded In a typical week, how many times do you talk on the phone with family, friends, or neighbors? Patient declined 09/23/2024 How often do you get togethe r with friends or relatives? Patient declined 09/23/2024 How often do you attend christianity or sabianism serv ices? Patient declined 09/23/2024 Do you belong to any clubs o r organizations such as christianity groups, unions, fraternal or athletic groups, or school groups? Patient declined 09/23/2024 How often do you attend meet ings of the clubs or organizations you belong to? Patient declined 09/23/2024 Are you , , di vorced, , never , or living with a partner? Patient declined 09/23/2024 AUDIT-C Answer Date Recorded Q1: How often do you have a drink containing alc ohol? Patient declined 09/23/2024 Q2: How many drinks containi ng alcohol do you have on a typical day when you are drinking? Patient declined 09/23/2024 Q3: How often do you have si x or more drinks on one occasion? Patient declined 09/23/2024 Overall Financial Resource Strain (CARDIA) Answe r Date Recorded How hard is it for you to pa y for the very basics like food, housing, medical care, and heating? Patient declined 09/23/2024 PHQ-2 Answer Date Recorded Total Score - Questions 1-9 2 01/2023 [employer] - Occupational Stress Questionnaire Answer Date Recorded Do you feel stress - tense, restless, nervous, or anxious, or unable to sleep at night because your mind is troubled all the time - these days? Patient declined 09/23/2024 Exercise Vital Sign Answer Date Recorde d On average, how many days pe r week do you engage in moderate to strenuous exercise (like a brisk walk)? Patient declined On average, how many minutes do you engage in exercise at this level? Patient declined 09/23/2024 Hunger Vital Sign Answer Date Recorded Within the past 12 months, y ou worried that your food would run out before you got the money to buy more. Patient declined Within the past 12 months, t he food you bought just didn't last and you didn't have money to get more. Patient declined PRAPARE - Transportation Answer Date Re corded In the past 12 months, has l ack of transportation kept you from medical appointments or from getting medications? Patient declined 09/23/2024 In the past 12 months, has l ack of transportation kept you from meetings, work, or from getting things needed for daily living? Patient declined 09/23/2024 Housing Stability Vital Sign Answer Gatito e Recorded In the last 12 months, was t here a time when you were not able to pay the mortgage or rent on time? Patient declined 09/23/19 25 In the past 12 months, how m any times have you moved where you were living? 1 09/23/2024 At any time in the past 12 m [facility], were you homeless or living in a penitentiary (including now)? Patient declined 09/23/2024 Sexually Active Control Partners Comments Yes Male Comments No Sex and Gender Information Value Date Recorded Sex Assigned at Not on file Legal Sex Female 11:21 PM CDT Gender Identity Not on file Sexual Orientation Not on file Last Filed Vital Signs Vital Sign Reading Time Taken Comments Blood Pressure 130/90 03/21/2025 3:33 PM CDT Pulse 69 03/21/2025 3:33 PM CDT Temperature 36.4 C (97.5 F) 03/21/2025 3:33 PM CDT Respiratory Rate 16 03/21/2025 3:33 PM CDT Oxygen Saturation 99% 03/21/2025 3:33 PM CDT Inhaled Oxygen Concentration - - Weight 64.2 kg (141 lb 9.6 oz) 03/21/2025 3:33 P M CDT Height 160 cm (5' 3) 03/21/2025 3:33 PM CDT Body Mass Index 25.08 03/21/2025 3:33 PM CDT Plan of Treatment Upcoming Encounters Date Type Department Care Team (Late st Contact Info) Description 05/02/2025 8:00 AM CDT Office Visit [facility] - Cardiology [facility] [address] [place] [address] Kailey Tomlin MD [address] [address] Health Maintenance Due Date Last Done Comments Hepatitis C Virus (HCV) Screening 1970 TdaP Immunization 1970 Hepatitis B Immunization (1 of 3 - 19+ 3-dose series) 1989 Pneumococcal Immunization (50+ years) (1 of 2 - PCV) 1989 Cologuard 2015 Immunochemical Fecal Occult Blood 2015 Mammogram 12/05/2023 12/04/2022, 09/09, 09/10/2020, Additional history exists Influenza Immunization (#1) 2025 Colonoscopy 08/17/2030 08/17/2023, 04/2024, 09/03/2020 Colorectal Cancer Screening 08/17/2030 Respiratory Syncytial Virus (RSV) Immunization (Adult) (1 - 1-dose 75+ series) 2045 Zoster Immunization Completed 03/12/2025, Human Papillomavirus (HPV) Immunization Aged Out No longer eligible based on patient's age to complete this topic Meningococcal Immunization (ACWY) Aged Out No longer eligible based on patient's age to complete this topic Rotavirus Immunization Aged Out No lo nger eligible based on patient's age to complete this topic Procedures Procedure Name Priority Date/Time Associated Diagnosis Comments ELECTROCARDIOGRAM, COMPLETE Today 03/21/2025 3:30 PM CDT Paroxysmal atrial fibrillation (HCC) ZBIGNIEW SCREENING YEISON W IMPL DIGITAL W CAD W RIGOBERTO Routine 12/04/2022 12:10 PM CDT Encounter for mammogram to establish baseline mammogram from Last 3 Months or Most Recently Relevant to Health Maintenance Results * ELECTROCARDIOGRAM, COMPLETE (03/21/2025 3:30 PM CDT) Narrative RafalSilvia, RADHA - 03/21/2025 3:30 PM CDT Kailey Tomlin MD 03/21/2025 4:35 PM NSR, nl axis, nl intervals, no acute ST/T changes. Procedure Note Kailey Tomlin MD - 03/21/2025 3:30 PM CDT NSR, nl axis, nl intervals, no acute ST/T changes. us Kailey Tomlin MD IMG ECG ORDERABLES Final Result * ZBIGNIEW SCREENING YEISON W IMPL DIGITAL W CAD W RIGOBERTO (12/04/2022 12:10 PM CDT) Anatomical Region Laterality Modality breast Bilateral Mammography 12/04/2022 12:1 9 PM CDT Narrative 12/04/2022 2:55 PM CDT - ZBIGNIEW SCREENING YEISON W IMPL DIGITAL W CAD W RIGOBERTO BILATERAL DIGITAL SCREENING MAMMOGRAM 3D/2D WITH CAD WITH MEDIOLATERAL OBLIQUE CRANIOCAUDAL WITH AUGMENTATION: 12/04/2022 The study was acquired using digital technology and interpreted from soft copy. Current study was also evaluated with ICAD version 7.2. 2D digital mammographic views, as well as 3D digital tomosynthesis were performed in the CC and MLO projections. CLINICAL: Routine screening. Patient has no complaints. No personal history of cancer. No family history of breast cancer. COMPARISONS: Comparison is made to exams dated: 09/18/2021, 09/10/2020, and 06/15/2019 [facility]. BREAST TISSUE:The tissue of both breasts is extremely dense, which lowers the sensitivity of mammography. FINDINGS: Bilateral breast implants are present. No significant masses, calcifications, or other findings are seen in either breast. There has been no significant interval change. IMPRESSION: BI-RAD 1 NEGATIVE There is no mammographic evidence of malignancy. A 1 year screening mammogram is recommended. A letter will be sent to the patient with these results. The patient will be entered into a reminder system with a target due date of 1 year for her next screening exam. Electronically signed by: Robert Douglas M.D. ll/penrad:12/04/2022 14:12:25 Buckle Coverer(s): RT Kit(R)(M), [facility] letter sent: Normal Exam Reading location: [place] BI-RADS: 1 Negative Procedure Note Robert Douglas MD - 12/04/2022 - ZBIGNIEW SCREENING YEISON W IMPL DIGITAL W CAD W RIGOBERTO BILATERAL DIGITAL SCREENING MAMMOGRAM 3D/2D WITH CAD WITH MEDIOLATERAL OBLIQUE CRANIOCAUDAL WITH AUGMENTATION: 12/04/2022 The study was acquired using digital technology and interpreted from soft copy. Current study was also evaluated with ICAD version 7.2. 2D digital mammographic views, as well as 3D digital tomosynthesis were performed in the CC and MLO projections. CLINICAL: Routine screening. Patient has no complaints. No personal history of cancer. No family history of breast cancer. COMPARISONS: Comparison is made to exams dated: 09/18/2021, 09/10/2020, and 06/15/2019 [facility]. BREAST TISSUE:The tissue of both breasts is extremely dense, which lowers the sensitivity of mammography. FINDINGS: Bilateral breast implants are present. No significant masses, calcifications, or other findings are seen in either breast. There has been no significant interval change. IMPRESSION: BI-RAD 1 NEGATIVE There is no mammographic evidence of malignancy. A 1 year screening mammogram is recommended. A letter will be sent to the patient with these results. The patient will be entered into a reminder system with a target due date of 1 year for her next screening exam. Electronically signed by: Robert Douglas M.D. ll/penrad:12/04/2022 14:12:25 Buckle Coverer(s): RT Kit(Ja)(M), [facility] letter sent: Normal Exam Reading location: [place] BI-RADS: 1 Negative Jorge Luis Weems MD IMG MAMMO ORDERABLES Final Result from Last 3 Months or Most Recently Relevant to Health Maintenance Insurance [facility] Advance Directives * Full Code (Latest Code Status on File) Date Activated Date Inactivated Comments 09/23/2024 4:04 PM CPR-Full Treat ment: FULL ARREST: Attempt Resuscitation/CPR wit intubation and mechanical ventilation. PRE-ARREST: Use entire range of life support measures to stabilize the patient. Care Teams Autocad Draftsman Relationship Specialty Start Date End Date Marcia Abrams APRN [address] [place] [id number] PCP - General Advanced Practice Nurse 09/21/24 Jorge Luis Weems MD Consulting Physician Obstetrics & Gynecology 03/15/17 Kailey Tomlin MD 2 [facility], [address] [address] Consulting Physician Cardiovascular Disease - Cardiology 12/21/24
--- OUTSIDE RECORDS SUMMARY | 2025-05-01 11:24 | XMS_ITS | Patient Health Record ---
Author Organization [facility] ([address]) Address [address] [place] [address] Care Team Providers Care Fryline Attendant Name Role Phone Marcia Victoria Primary Care Provider Jeaneth Mcdermott Unavailable [phone] Lashay Dunn Unavailable Unavailable Robin Burnham Unavailable [phone] Gilberto Richter Unavailable [phone] Allergies Allergen (clinical drug ingredient) Drug/Non Drug Allergy documented on EMR Reaction Allergy Type Onset Date Status PEG hives Drug Allergy Active sulfamethoxazole / trimethoprim Sulfamethoxazole-Tr imethoprim rash Drug Allergy Active Reason For Referral No Information Medications Medication SIG (Take, Route, Frequency, Duration) Notes Start Date End Date Status Famotidine 40 MG 1 tablet Orally Twic e a day, TAKE WITH ZYRTEC; Duration: 90 days Active Cetirizine HCl 10 MG 1 tablet Orally Twi ce a day; Duration: 30 days Active hydrOXYzine HCl 25 MG 1 tablet as needed Orally up to 3 times a day only if needed for severe itching; Duration: 15 days Active Montelukast Sodium 10 MG 1 tablet Orally at night; Duration: 90 days Active Famotidine 40 MG 1 tablet Orally Twic e a day, TAKE WITH ZYRTEC; Duration: 90 days Not-Taking Dupixent 300 MG/2ML as directed Subcutaneous Active Xolair 150 MG/ML inject 300 mg Subcutaneous every 4 weeks; Duration: 30 days Active Xolair 75 MG/0.5ML 300mg Subcutaneous every 4 weeks; Duration: 30 days 03/16/2024 Not-Taking Amiodarone HCl 200 MG 1 tablet Orally On ce a day Active hydrOXYzine HCl 25 MG 1 tablet as needed Orally up to 3 times a day only if needed for severe itching; Duration: 15 days Active EpiPen 2-Manfred 0.3 MG/0.3ML as directed In jection once; Duration: 30 days Active Toprol XL 50 MG 1 tablet Orally Once a day Active Tylenol 325 MG 1 tablet as needed Orally every 6 hrs Active Triamcinolone Acetonide 0.1 % 1 application Externally Twice a day; Duration: 10 days Active Eucrisa 2 % 1 application Externally Twice a day; Duration: 30 days Active Immunizations Vaccine Route Administration Date Status Comme nts FluZone Quadrivalent Unknown 08/09/2017 Administered Po rtal Information Social History Tobacco Use: Social History Observation Description Date Details (start date - stop date) Never Smoker NA - NA Tobacco Control (Standard) Question Answer Notes Tobacco use: Nonsmoker Problems Problem Type SNOMED Code ICD Code Onset Dates Problem Status W/U Status Risk Notes Problem Wheezing (11661004) Wheezing (R06.2) Active confirmed Problem Chronic rhinitis (18629331) Chronic rhinitis (J31.0) Active confirmed Problem Hypertrophy of nasal turbinates (95101182) Hypertrophy of nasal turbinates (J34.3) Active confirmed Problem Uncomplicated moderate persistent asthma (315821519) Moderate persistent asthma, uncomplicated (J45.40) Active confirmed Problem Uncomplicated severe persistent asthma (019124801) Severe persistent asthma, uncomplicated (J45.50) Active confirmed Problem Elevated blood pressure reading without diagnosis of hypertension (918525908) Elevated blood-pressure reading, without diagnosis of hypertension (R03.0) Active confirmed Problem Allergic rhinitis caused by animal hair and dander (062886966319386) Allergic rhinitis due to animal (cat) (dog) hair and dander (J30.81) Active confirmed Problem Atopic neurodermatitis (929404936) Atopic neurodermatitis (L20.81) Active confirmed Problem Eruption of skin (207099277) Rash and other nonspecific skin eruption (R21) Active confirmed Problem Urticaria (321392968) Other urticaria (L50.8) Active confirmed Vital Signs Oximetry 100 % 10/05/2024 Blood pressure diastolic 84 mm Hg 10/05/2024 Height 63 in 10/05/2024 Blood pressure systolic 127 mm Hg 10/05/2024 Weight 150.8 lbs 07/13/2024 BMI 26.71 kg/m2 07/13/2024 Encounters Encounter Location Date Provider Diagnosis [facility] [address] [place] [phone] 10/05/2024 Jeaneth Stone Atopic neurodermatit is L20.81 ; Prurigo nodularis L28.1 ; Rash and other nonspecific skin eruption R21 ; Other urticaria L50.8 ; Allergic rhinitis due to animal (cat) (dog) hair and dander J30.81 ; Wheezing R06.2 and Elevated blood-pressure reading, without diagnosis of hypertension R03.0 [facility] [address] [place] [phone] 06/08/2024 Jeaneth Stone Rash and other nonspecific skin eruption R21 ; Atopic neurodermatitis L20.81 ; Other urticaria L50.8 ; Allergic rhinitis due to animal (cat) (dog) hair and dander J30.81 ; Wheezing R06.2 and Elevated blood-pressure reading, without diagnosis of hypertension R03.0 [facility] [address] [place] [phone] 07/13/2024 Jeaneth Stone Atopic neurodermatit is L20.81 ; Prurigo nodularis L28.1 ; Rash and other nonspecific skin eruption R21 ; Other urticaria L50.8 ; Allergic rhinitis due to animal (cat) (dog) hair and dander J30.81 ; Wheezing R06.2 and Elevated blood-pressure reading, without diagnosis of hypertension R03.0 [facility] [address] [place] [phone] 05/11/2024 Robin Burnham Other Urticaria L50. 8 [facility] [address] [place] [phone] 09/21/2024 Jeaneth Stone [address] [phone] 09/21/2024 Jeaneth Stone [address] [address] 08/15/2024 Jeaneth Stone [address] [place] [address] 08/15/2024 Jeaneth Stone Atopic neurodermatit is L20.81 [facility] [address] [place] [phone] 07/28/2024 Jeaneth Stone [facility] [address] [place] [phone] 07/26/2024 Jeaneth Stone [facility] [address] [place] [phone] 07/03/2024 Jeaneht Stone [address] [place] [address] 05/11/2024 Jeaneth Stone [facility] [address] [place] [phone] 10/12/2024 Jeaneth Stone [address] [address] 10/12/2024 Jeaneth Stone Assessments Encounter Date Diagnosis (ICD Code) Assessment Notes Treatment Notes Treatment Clinical Notes Section Notes 05/11/2024 Other Urticaria (ICD-10 - L50.8) 06/08/2024 Atopic neurodermatitis (ICD-10 - L20.81) Radha has had hives now starting roughly 10 years ago. Previously followed by Dr. Doan at [facility] and diagnosed with CSU. She also was seen by [facility]. She has failed high dose H1 and H2 antihistamines and steroids but did well on CSA. Had to stop due to side effects and abnormal labs. She was seen by Dermatology for other skin issues and reports she is breaking out again for the last 6 months. Has failed several topical steroids. -She has both eczema and chronic hives. To date I have never seen her hives. Mutually agreed to start Xolair which she started 4 months ago. There has been zero change in her pruritius rash or hives. -Michelle recommended switching gears for focusing on the eczema and PN. She is chronically picking and itching her skin. Discussed trial of Dupixent approved for PN and atopic dermatitis -Loading dose of 600 mg administered today -She will start an at home injection log, continue Q2 week dosing -Return in 4-6 months 06/08/2024 Rash and other nonspecific skin eruption (ICD-10 - R21) Las visit added Triamcinolone BID x 10 days then switch to Eucrisa. No diffference seen -Still has long nails. Encouraged to cut nails short as most of the dermatitis and trauma is due to itching and picking. Hydroxyzine refilled. -Discussed Dermatology evaluation as I feel she may have PN. Await response to Dupixent 07/13/2024 Prurigo nodularis (ICD-10 - L28.1) See plan above 07/13/2024 Atopic neurodermatitis (ICD-10 - L20.81) Radha has had hives now starting roughly 10 years ago. Previously followed by Dr. Doan at [facility] and diagnosed with CSU. She also was seen by [facility]. She has failed high dose H1 and H2 antihistamines and steroids but did well on CSA. Had to stop due to side effects and abnormal labs. She was seen by Dermatology for other skin issues and reports she is breaking out again for the last 6 months. Has failed several topical steroids. -She has multiple skin issues - eczema, PN, and chronic hives. Mutually agreed to start Xolair which she started 4 months ago. There has been zero change in her pruritius rash or hives. -Michelle recommended switching gears for focusing on the eczema and PN. She is chronically picking and itching her skin. Discussed trial of Dupixent approved for PN and atopic dermatitis. -Loading dose of 600 mg administered in May and she has had 2 more doses with clear improvement! she is very pleased. Still vey dry on exam. Needs to increase soaking and emollient use -Continue will start an at home injection log, continue Q2 week dosing -Return in 3 months 08/15/2024 Atopic neurodermatitis (ICD-10 - L20.81) 10/05/2024 Prurigo nodularis (ICD-10 - L28.1) See plan above 10/05/2024 Atopic neurodermatitis (ICD-10 - L20.81) Radha had hives now starting roughly 10 years ago. Previously followed by Dr. Doan at [facility] and diagnosed with CSU. She also was seen by [facility]. She has failed high dose H1 and H2 antihistamines and steroids but did well on CSA. Had to stop due to side effects and abnormal labs. She was seen by Dermatology for other skin issues and reports she is breaking out again for the last 6 months. Has failed several topical steroids. -She has multiple skin issues - eczema, PN, and chronic hives. Mutually agreed to start Xolair which she started in 2023. After several months, there has been zero change in her pruritius rash or hives. -Michelle recommended switching gears for focusing on the eczema and PN. She is chronically picking and itching her skin. She started a trial of Dupixent approved for PN and atopic dermatitis. in May 2024 -Doing well the last few months. Needs to increase soaking and emollient use, feels cutting out PEG has helped. -Forgot injection log today, will email shortly. Continue at home injection log, continue Q2 week dosing -Return in 3 months 10/05/2024 Rash and other nonspecific skin eruption (ICD-10 - R21) Radha recently developed b/l hand rash and itching, sneezing, congestion, and throat swelling with IV contrast. She also had hand itching with Miralax prep previously with a colonscopy but NO other symptoms. -The nurse told her she likely has a Polyethlene glycol (PEG). I discussed that formal testing can be done as there are several types of reactions/culprit s that can occur with contrast dye. First and foremost we would need to confirm the ingredients of the dye she received. -She doesnt seem interested in formal testing but will consider, for now wants to avoid and list on allergy list 07/13/2024 Rash and other nonspecific skin eruption (ICD-10 - R21) Las visit added Triamcinolone BID x 10 days then switch to Eucrisa. No diffference seen -Still has long nails. Encouraged to cut nails short as most of the dermatitis and trauma is due to itching and picking. Hydroxyzine refilled. -Discussed Dermatology evaluation as I feel she may have PN. Await response to Dupixent 06/08/2024 Other urticaria (ICD-10 - L50.8) Hold Xolair given lack of benefit 06/08/2024 Allergic rhinitis due to animal (cat) (dog) hair and dander (ICD-10 - J30.81) Prior allergy testing a few times in life. No prior immunotherapy -ImmunoCaps received showing mild elevation to cat dander. Total IgE 73. Denies recent symptoms. 07/13/2024 Other urticaria (ICD-10 - L50.8) Hold Xolair given lack of benefit 10/05/2024 Other urticaria (ICD-10 - L50.8) Hold Xolair given lack of benefit 07/13/2024 Allergic rhinitis due to animal (cat) (dog) hair and dander (ICD-10 - J30.81) Prior allergy testing a few times in life. No prior immunotherapy -ImmunoCaps received showing mild elevation to cat dander. Total IgE 73. Denies recent symptoms. 06/08/2024 Wheezing (ICD-10 - R06.2) Reports childhood asthma, still with seasonal wheezing coughing and dyspnea in Winter. Has only been on albuterol but requires OCS every year. Uses TIKA once every 2-3 months. -Spirometry last visit was normal -Feels Xolair made breathing worse -Highly recommend controller over Winter to reduce OCS requirements -Spacer training done today, but patient is not interested at this time. 10/05/2024 Allergic rhinitis due to animal (cat) (dog) hair and dander (ICD-10 - J30.81) Prior allergy testing a few times in life. No prior immunotherapy -ImmunoCaps received showing mild elevation to cat dander. Total IgE 73. Denies recent symptoms. 06/08/2024 Elevated blood-pressure reading, without diagnosis of hypertension (ICD-10 - R03.0) BP elevated today without symptoms of urgency or emergency. Continue serial checks and follow-up with PCP 07/13/2024 Wheezing (ICD-10 - R06.2) Reports childhood asthma, still with seasonal wheezing coughing and dyspnea in Winter. Has only been on albuterol but requires OCS every year. Uses TIKA once every 2-3 months. -Spirometry last visit was normal -Feels Xolair made breathing worse- doing better on Dupixent -Highly recommend controller over Winter to reduce OCS requirements -Spacer training done previously, but patient is not interested at this time. 10/05/2024 Wheezing (ICD-10 - R06.2) Reports childhood asthma, still with seasonal wheezing coughing and dyspnea in Winter. Has only been on albuterol but requires OCS every year. Uses TIKA once every 2-3 months. -Spirometry last visit was normal -Feels Xolair made breathing worse- doing better on Dupixent -Highly recommend controller over Winter to reduce OCS requirements- did not require this year -Spacer training done previously, but patient is not interested in use 10/05/2024 Elevated blood-pressure reading, without diagnosis of hypertension (ICD-10 - R03.0) BP elevated today without symptoms of urgency or emergency. Continue serial checks and follow-up with PCP -slated for cardiology visit 07/13/2024 Elevated blood-pressure reading, without diagnosis of hypertension (ICD-10 - R03.0) BP elevated today without symptoms of urgency or emergency. Continue serial checks and follow-up with PCP 06/08/2024 Other 05/11/2024 Other 10/05/2024 Other 07/13/2024 Other Plan Of Treatment Pending Test Test Name Order Date CHRONIC URTICARIA 02/24/2024 ANTI-IGE 02/24/2024 CU PANEL 02/24/2024 Next Appt Details Provider Name:Jeaneth Chandrika Stone , 05/31/2025 03:30:00 PM, [address] [facility], [address], [place], [address], Insurance Providers Payer Name Payer Address Payer Phone Subscriber Number Group Number Insured Name Patient Relationship to Insured Coverage Start Date Coverage End Date [facility] [id number] [place] [address] [id number] Radha Wu Self - patient is the insured Xolair Copay Program [address] [place] [id number] Radha Wu Self - patient is the insured Medical (General) History Medical History History ICD Code Other urticaria L50.8 Surgical History Surgery Date(Month/Year) Sinus 08/09/2006 Sinus 08/09/2007 appendix 08/09/2009 broken wrist 08/09/2016 breast implants 08/09/2016 hysterectomy Hospitalization History Reason Date(Month/Year) Afib 09/23/2024 Appendix 08/09/2009 child 04/24/1989 child 02/22/1988 [facility] Callagenous Colitis 08/12/2023
--- OUTSIDE RECORDS SUMMARY | 2025-05-01 11:25 | XMS_ITS | Patient Health Record ---
Author Organization [facility] Address [address] [facility] [address] [place] [address] Care Team Providers Care Business Continuity Management Director Name Role Phone MenaHilario Unavailable [phone] Reason For Referral No Information Plan Of Treatment No Information
== END 2025-05-01 10:37 | disposition home or self-care (01) ==
PROVIDERS: PCP Nurse Practitioner Adult Health; Visit Provider Nurse Practitioner Adult Health
DX: R68.84 Jaw pain (principal)
CPT/HCPCS: 70110

== ENCOUNTER 2025-05-04 07:11 | Outpatient (CLI) | payer BC, SELFPAY ==
--- NOTE | ~2025-05-04 | MM_ITS ---
EXAMINATION: MM scrn kedar implant BI w dagmar INDICATION: Asymptomatic, referred for screening mammogram COMPARISON: 04/28/2024 TECHNIQUE: Digital Breast Tomosynthesis CC, MLO, and implant displaced CC and MLO views of Both breasts were obtained with computer-aided detection to assist in interpretation of the study. FINDINGS: The breasts are heterogeneously dense, which may obscure small masses. Bilateral breast Retropectoral Saline implants in place appears intact. No focal dominant mass, architectural distortion, or suspicious microcalcifications are identified. There are no features to suggest malignancy. IMPRESSION: 1. No evidence of malignancy in the breasts. 2. Both breasts Retropectoral Saline implants appears intact. Recommend continued screening mammography BI-RADS 1, NEGATIVE Reviewed, dictated and finalized at location B.
== END 2025-05-04 07:12 | disposition home or self-care (01) ==
LOC: MICIMG 07:12
PROVIDERS: PCP Nurse Practitioner Adult Health; Visit Provider Nurse Practitioner Adult Health
DX: Z12.31 Encounter for screening mammogram for malignant neoplasm of breast (principal)
CPT/HCPCS: 77063; 77067

== ENCOUNTER 2025-05-31 12:14 | Outpatient (CLI) | payer BC, SELFPAY ==
--- NOTE | ~2025-05-31 | XR_ITS ---
EXAMINATION: XR abdomen/kub 1V DATE: 05/31/2025 12:21 INDICATION: Unspecified abdominal pain TECHNIQUE: A supine view of the abdomen on 2 radiographs was obtained. COMPARISON: None. FINDINGS: Moderate amount of stool. Moderate amount of air in nondilated large and small bowel. There are a few less than 1.0 cm calcifications projecting over the pelvis which may represent phleboliths, however, a distal ureteral stone or bladder stone or possible. No radiographic evidence for renal calculi. Lung bases are grossly clear. There are a few nonspecific air-fluid levels. IMPRESSION: 1. Several air-filled loops of large and small bowel with a few nonspecific air- fluid levels. Differential includes ileus or developing obstruction. Consider a CT of the abdomen and pelvis with contrast for further assessment. Reviewed, dictated and finalized at location Q. IMPRESSION: 1. Several air-filled loops of large and small bowel with a few nonspecific air -fluid levels. Differential includes ileus or developing obstruction. Consider a CT of the abdomen and pelvis with contrast for further assessment.
--- OUTSIDE RECORDS SUMMARY | 2025-05-31 13:09 | XMS_ITS | Encounter Summary ---
Author Organization [facility] Address [address] [place] [address] Phone Care Team Providers Care Digital Campaign Manager Name Role Phone Jorge Luis Weems MD Unavailable Unavailab Sharmin Cosby MD Primary Care Provider Marcia Abrams APRN Primary Care Provider [phone] Kailey Tomlin MD Unavailable Reason for Visit * Reason Comments Medication Refill Encounter Details Date Type Department Care Team (Late st Contact Info) Description 07/27/2022 Refill [facility] - Family Medicine [facility] [address] [place] [address] [place] [address] [place] [address] Medication Refill Social History Tobacco Use Types [...] Kailyn Cunha RN - 07/27/2022 1:33 PM TOLL TEST WORKER Duplicate request. TEST WORKER * Telephone Encounter - Grazyna Valdez RN - 07/27/2022 10:11 AM CST duplicate TEST WORKER documented in this encounter Plan of Treatment Upcoming Encounters Date Type Department Care Team (Late st Contact Info) Description 08/15/2025 2:00 PM TOLL TEST WORKER Office Visit [facility] - Cardiology [facility] [address] [place] [address] Kailey Tomlin MD [address] [address] 05/17/2026 7:00 AM CDT Appointment [facility] [address] [place] [address] Marcia Abrams, DRAWBRIDGE TENDER [address] [place] [address] Discharge Disposition: Discharged to home or Selfcare documented as of this encounter Visit Diagnoses Diagnosis Anxiety Anxiety state, unspecified documented in this encounter Additional Health Concerns Infection Onset Date Last Indicated Resolved Time COVID - 19 09/23/2024 09/23/2024 09/23/2024 1:12 PM TOLL TEST WORKER Respiratory Rule-Out 01/07/2025 01/07/2025 025 12:36 PM CDT Assessment Noted Time PHQ-9 Depression Total Score: 0 05/21/20 20 7:33 AM CDT documented as of this encounter Care Teams Digital Campaign Manager Relationship Specialty Start Date End Date Sharmin Guillaume MD PCP - General Family Medicine 09/16/17 01/24/24 Marcia Abrams APRN [address] [place] [address] PCP - General Advanced Practice Nurse 09/21/24 Jorge Luis Weems MD Consulting Physician Obstetrics & Gynecology 03/15/17 Kailey Tomlin MD [address] [address] Consulting Physician Cardiovascular Disease - Cardiology 12/21/24 documented as of this encounter
--- OUTSIDE RECORDS SUMMARY | 2025-05-31 13:10 | XMS_ITS | Clinical Summary ---
Author Organization [facility] Address [address] [facility] [place] [address] Phone Care Team Providers Care Family Law Legal Assistant Name Role Phone Jorge Luis Weems MD Unavailable Unavailab Marcia Meier APRN Primary Care Provider [phone] Kailey Tomlin MD Unavailable Allergies Active Allergy Reactions Criticality Noted Date Comments Sulfamethoxazole-Trimet hoprim Rash Medium 11/29/2020 Ondansetron Swelling High 03/29/2025 Given in similar timeframe as Protamine, unknown which drug caused Polyethylene Glycol Runny Nose,Itching Low 09/25/19 25 Protamine Swelling High 03/29/2025 Given in similar timeframe as Zofran, unknown which drug caused Sulfur Hexaflouride Lipid A Microspheres Other (see [...] every 14 days. Last dose 09/22/24 Active FAMOTIDINE PO Take 8 mg by mouth daily. Active metoprolol Succinate (TOPROL-XL) 50 MG TABLET SR 24 HRIndications:At rial Fibrillation Take 1 Tablet by mouth daily. Indications: Atrial Fibrillation 30 Tablet 5 05/02/20 25 Active dronedarone (Multaq) 400 MG TabletIndication s:Atrial Fibrillation Take 1 Tablet by mouth 2 times daily (with meals). Indications: Atrial Fibrillation 60 Tablet 5 05/02/20 25 Active Eliquis 5 MG TabletIndication s:Atrial Fibrillation Take 1 Tablet by mouth 2 times daily. Indications: Atrial Fibrillation 60 Tablet 5 05/02/20 25 Active pantoprazole (PROTONIX) 40 MG Pack Take 40 mg by mouth 2 times daily. 60 Packet 5 05/02/20 25 Active metoprolol Succinate (TOPROL-XL) 50 MG TABLET SR 24 HR Take 1 Tablet by mouth daily. 90 Tablet 1 12/21/19 25 025 Discontin ued(Reord er) Eliquis 5 MG TabletIndication s:Atrial Fibrillation Take 1 Tablet by mouth 2 times daily. Indications: Atrial Fibrillation 180 Tablet 3 04/26/20 25 025 Discontin ued(Reord er) dronedarone (Multaq) 400 MG Tablet Take 400 mg by mouth 2 times daily (with meals). 025 Discontin ued(Reord er) pantoprazole (PROTONIX) 40 MG Pack 40 mg by Per NG tube route 2 times daily. 025 Discontin ued(Reord er) Active Problems Problem Noted Date Diagnosed Date Atrial fibrillation with RVR 09/23/2024 Elevated blood pressure reading 07/29/2018 Dermatitis 03/15/2017 Gastroesophageal reflux disease without esophagi tis 08/11/2016 Bronchitis 08/11/2016 Palpitations 08/11/2016 Asthma Hives Encounters Date Type Department Care Team Description 05/07/2025 Transcribe Orders [facility] [address] [place] [address] Marcia Abrams APRN Visit for screening mammogram (Primary Dx) 05/07/2025 Transcribe Orders [facility] [address] [facility] [place] [address] Marcia Abrams, SKIP Visit for screening mammogram (Primary Dx) 05/07[facility] [address] [place] [address] Kailey Tomlin MD Medication Refill 05/02/2025 8:00 AM CDT Office Visit [facility] Cardiology [facility] [address] [place] [address] Kailey Tomlin MD Paroxysmal atrial fibrillation (HCC) (Primary Dx) Discharge Disposition: Discharged to home or Selfcare 05/02/2025 Travel 04/25/20[facility] [place] [address] Kailey Tomlin MD Medication Refill 04/03/2025 Telephone [facility] Cardiology [facility] [address] [place] [address] Kailey Tomlin MD Advice Only 04/02/2025 Telephone [facility] [address] [place] [address] Kailey Tomlin MD Letter for School/Work 03/21/2025 3:30 PM CDT Office Visit [facility] [address] [place] [id number] Kailey Tomlin MD Paroxysmal atrial fibrillation (HCC) [...] drink = 0.6 oz pur e alcohol) [facility] Utilities Answer Date Recorded In the past 12 months has e PT [employer], gas, oil, or water [employer] threatened to shut off services in your home? Patient declined 09/23/2024 Social Connection and Isolation Panel Answer Date Recorded In a typical week, how many times do you talk on the phone with family, friends, or neighbors? Patient declined 09/23/2024 How often do you get togethe r with friends or relatives? Patient declined 09/23/2024 How often do you attend christianity or anabaptist serv ices? Patient declined 09/23/2024 Do you [...] Total Score - Questions 1-9 2 01/2023 [facility] - Occupational Stress Questionnaire Answer Date Recorded [...] any time in the past 12 m [facility], were you homeless or living in a fpc (including now)? Patient declined 09/23/2024 Sexually Active Control Partners Comments Yes Male Comments No Sex and Gender Information Value Date Recorded Sex Assigned at Not on file Legal Sex Female 11:21 PM CDT Gender Identity Not on file Sexual Orientation Not on file Last Filed Vital Signs Vital Sign Reading Time Taken Comments Blood Pressure 142/98 05/02/2025 8:08 AM CDT Pulse 72 05/02/2025 8:08 AM CDT Temperature 36.4 C (97.6 F) 05/02/2025 8:08 AM CDT Respiratory Rate 16 05/02/2025 8:08 AM CDT Oxygen Saturation 100% 05/02/2025 8:08 AM CDT Inhaled Oxygen Concentration - - Weight 66 kg (145 lb 6.4 oz) 05/02/2025 8:08 AM CDT Height 160 cm (5' 3) 05/02/2025 8:08 AM CDT Body Mass Index 25.76 05/02/2025 8:08 AM CDT Plan of Treatment Upcoming Encounters Date Type Department Care Team (Late st Contact Info) Description 08/15/2025 2:00 PM LOG RIDER Office Visit [facility] [place] [address] [place] [address] Kailey Tomlin MD [address] [address] 05/17/2026 7:00 AM CDT Appointment [facility] [address] [place] [address] Marcia Abrams, [employer] [address] [place] [address] Discharge Disposition: Discharged to home or Selfcare Health Maintenance Due Date Last Done Comments [...] Date/Time Associated Diagnosis Comments ELECTROCARDIOGRAM, COMPLETE Today 05/02/2025 8:00 AM CDT Paroxysmal atrial fibrillation (HCC) ELECTROCARDIOGRAM, COMPLETE Today 03/21/2025 3:30 PM CDT Paroxysmal atrial fibrillation (HCC) ZBIGNIEW SCREENING YEISON W IMPL DIGITAL W CAD W RIGOBERTO Routine 12/04/2022 12:10 PM CDT Encounter for mammogram to establish baseline mammogram from Last 3 Months or Most Recently Relevant to Health Maintenance Results * ELECTROCARDIOGRAM, COMPLETE (05/02/2025 8:00 AM CDT) Only the most recent of2 resultswithin the time period is included. Narrative Kailey Tomlin MD - 05/02/2025 8:00 AM CDT Kailey Tomlin MD 05/02/2025 8:51 AM NSR, nl axis, nl intervals, no acute ST/T changes. Kailey Tomlin MD IMG ECG ORDERABLES Final [...] to exams dated: 09/18/2021, 09/10/2020, and 06/15/2019 [facility]. BREAST TISSUE:The tissue of both [...] next screening exam. Electronically signed by: Robert skinner/willard:12/04/2022 14:12:25 Detail Assembler(s): RT Kit(R)(M), [facility] letter sent: Normal Exam Reading location: [facility] BI-RADS: 1 Negative Procedure Note Robert Douglas [...] to exams dated: 09/18/2021, 09/10/2020, and 06/15/2019 [facility]. BREAST TISSUE:The tissue of both [...] next screening exam. Electronically signed by: Robert skinner/willard:12/04/2022 14:12:25 Detail Assembler(s): RT Kit(R)(M), [facility] letter sent: Normal Exam Reading location: [facility] BI-RADS: 1 Negative Jorge Luis Weems MD IMG MAMMO ORDERABLES Final Result from Last 3 Months or Most Recently Relevant to Health Maintenance Insurance [facility] Advance Directives * Full Code (Latest Code Status on File) Date Activated Date Inactivated Comments 09/23/2024 4:04 PM CPR-Full Treat ment: FULL ARREST: Attempt Resuscitation/CPR wit intubation and mechanical ventilation. PRE-ARREST: Use entire range of life support measures to stabilize the patient. Care Teams Family Law Legal Assistant Relationship Specialty Start Date End Date Marcia Abrams APRN [address] [place] [address] [facility] [place] [address] PCP - General Advanced Practice Nurse 09/21/24 Jorge Luis Weems MD Consulting Physician Obstetrics & Gynecology 03/15/17 Kailey Tomlin MD [address] [address] Consulting Physician Cardiovascular Disease - Cardiology 12/21/24
--- OUTSIDE RECORDS SUMMARY | 2025-05-31 13:10 | XMS_ITS | Clinical Summary ---
Author Organization [facility] Address [address] [place] [address] Care Team Providers Care Edger Machine Helper Name Role Phone Marcia Abrams SKIP-PLANNING DIRECTOR Primary Care Provider + Source Comments [facility],non-owned Affiliates and Associated Physician Practices is amultiple site organization consisting of ambulatory clinics and hospital sitesin [place], [place]. This disclosure is being madepursuant to the Care Everywhere program and may not contain all information available regarding this patient. Last updated 18.[facility] Allergies Active Allergy Reactions Criticality Noted Date [...] - 03/29/2025 11:59 PM CDT Hospital Encounter [facility] - Cardiac Classified Advertising Supervisor [address] [place] [phone] Kailey Tomlin MD Discharge Disposition: Home or Self Care 03/29/2025 7:48 AM CDT Anesthesia Event [facility] - Cardiac Classified Advertising Supervisor [address] [place] [phone] Torey Staples MD Osterloh, Joan Frances, BLOCKER AND POLISHER-GRINDER MILL OPERATOR 03/29/2025 7:15 AM CDT - 03/29/2025 12:36 PM CDT Surgery [facility] - Cardiac Classified Advertising Supervisor [address] [place] [phone] Kailey Tomlin MD Ablation - A-fib RF 03/29/2025 5:18 AM CDT - 04/01/2025 9:44 AM CDT Hospital Encounter [facility] 8N ACUTE [address] [place] [address] Kailey Tomlin MD Hassan, Abdalla H, MD Cardiac Catheterization Discharge Disposition: Home or Self Care 03/29/2025 Travel 03/23/2025 3:00 PM CDT - 03/23/2025 11:59 PM CDT Hospital Encounter [facility] LAB OP DRAW STATION [address] [place] [address] Discharge Disposition: Home or Self Care 03/23/2025 2:26 PM CDT - 03/23/2025 2:56 PM CDT Hospital Encounter [facility] PAT [address] [place] [address] Lourdes Tomlin MD Discharge Disposition: Home or Self Care 03/23/2025 Travel 03/09/2025 Telephone [facility] - Cardiology [address] [facility], [address] [place] [address] Nikko Tejada RN Cardiac Ablation 03/07/2025 12:31 PM CDT - 03/07/2025 11:59 PM CDT Hospital Encounter [facility] CAT SCAN [address] [place] [address] Kailey Tomlin MD Discharge Disposition: Home or Self Care 03/07/2025 Travel from Last 3 Months Social History Tobacco [...] and heating? Not hard at all 03/31/2025 [facility] [place] of Occupat ional Health - Occupational Stress [...] place to sleep or slept in a senior care (including now)? No 08/14/2023 Housing Stability Vital Sign Answer Gatito e Recorded In the last 12 months, was t here a time when you were not able to pay the mortgage or rent on time? No 03/31/2025 In the past 12 months, how m any times have you moved where you were living? 0 03/31/2025 At any time in the past 12 m [facility], were you homeless or living in a senior care (including now)? 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 Gender Identity Female 03/06/2025 4:03 PM CDT [...] series) 1989 PNEUMOCOCCAL VACCINE 50+ (1 of 2 - PCV) 1989 ZOSTER VACCINE (1 of 2) 01/02/2020 DEPRESSION SCREENING 08/09/2024 MAMMOGRAM 12/04/2024 12/04/2022, 11/08, 09/18/2021, Additional history exists COVID-19 VACCINE (1 - 2023- season) 2025 INFLUENZA VACCINE (#1) [...] 4:52 PM CDT ACT LR - POCT ([facility]) Routine 03/29/2025 2:48 PM CDT ELECTROPHYSIOLOGY PROCEDURE Routine 03/29/2025 2:22 PM CDT Paroxysmal atrial fibrillation (HCC) ELECTROPHYSIOLOGY PROCEDURE Routine 03/29/2025 2:22 PM CDT Paroxysmal atrial fibrillation (HCC) ACT LR - POCT ([facility]) Routine 03/29/2025 2:21 PM CDT ACT LR - POCT (SS) Routine 03/29/2025 1:51 PM CDT ACT LR - POCT (SS) Routine 03/29/2025 1:30 PM CDT ACT LR - POCT (SS) Routine 03/29/2025 1:23 PM CDT ACT LR - POCT (SS) Routine 03/29/2025 1:00 PM CDT ACT LR - POCT (SS) Routine 03/29/2025 12:34 PM CDT ACT LR - POCT (SS) Routine 03/29/2025 12:10 PM CDT ACT LR - POCT ([facility]) Routine 03/29/2025 11:55 AM CDT ACT LR - POCT ([facility]) Routine 03/29/2025 11:41 AM CDT ECHO DAVID [...] Pre-op evaluation CBC W AUTO DIFFERENTIAL Routine 03/23/20 3:05 PM CDT Paroxysmal atrial fibrillation (HCC) BASIC METABOLIC PANEL (CALCIUM TOTAL) Routine 03/23/2025 3:05 PM CDT Paroxysmal atrial fibrillation (HCC) PT-INR STAT 03/23/2025 3:05 PM CDT Paroxysmal atrial fibrillation (HCC) CT CARDIAC ANGIO STRUCT MORPH MIESHA 03/07/2025 1:16 PM CDT Paroxysmal atrial fibrillation (HCC) ISTAT CREATININE Routine 03/07/2025 12:5 2 PM CDT ENDOSCOPY, COLON, DIAGNOSTIC Routine 08/17/2023 9:23 AM RUSSIAN TEACHER from Last 3 Months or Most Recently Relevant to Health Maintenance Results * PTT (04/01/2025 3:06 AM CDT) Only the most recent of6 resultswithin the time period is included. APTT 24.1 23.0 - 38.4 Seconds 04/01/2025 3:49 AM CDT [facility] Comment:Suggested therapeuti c range for full dose I.V. unfractionated heparin therapy for venous thromboembolism is 71 to 109 seconds. Blood BLOOD SPECIMEN / Unknown Lab Venipuncture / Unknown 04/01/2025 3:06 AM CDT 04/01/2025 3:23 AM CDT Shazia Chavez MD LAB - COAGULATION ORDERABLES Final Result [facility] [address] [place] [phone], [facility] [phone] * (ABNORMAL) PT-INR (04/01/2025 3:06 AM CDT) Only the most recent of7 resultswithin the time period is included. PT 15.3(H) 12.1 - 14.8 Seconds 04/01/2025 3:49 AM CDT [facility] INR 1.2 See Comment 04/01/2025 3:49 AM CDT [facility] Comment:The suggested therap eutic range for standard coumadin (warfarin) therapy is an INR of 2.0-3.0. For high-risk patients (Mechanical Mitral Valve Prosthesis, etc.), the suggested prophylactic therapeutic range is an INR of 2.5-3.5. Blood BLOOD SPECIMEN / Unknown Lab Venipuncture / Unknown 04/01/2025 3:06 AM CDT 04/01/2025 3:23 AM CDT us Shazia Chavez MD LAB - COAGULATION ORDERABLES Final Result [facility] [address] [place] [address], [facility] [phone] * (ABNORMAL) CBC W AUTO DIFFERENTIAL (04/01/2025 3:06 AM CDT) Only the most recent of8 resultswithin the time period is included. WBC 8.3 4.0 - 10.7 x10E9/L 04/01/2025 3:32 AM [facility] RBC Count 3.11(L) 3.90 - 5.20 x10E12/L 04/01/2025 3:32 AM [facility] Hemoglobin 9.8(L) 11.9 - 15.8 g/dL 04/01/2025 3:32 AM [facility] Hematocrit 30.7(L) 34.8 - 46.1 % 04/01/2025 3:32 AM [facility] MCV 98.7(H) 80.0 - 98.0 fL 04/01/2025 3:32 AM [facility] MCH 31.5 26.7 - 33.6 pg 04/01/2025 3:32 AM [facility] MCHC 31.9 31.7 - 36.3 g/dL 04/01/2025 3:32 AM [facility] RDW-CV 13.2 11.3 - 14.8 % 04/01/2025 3:32 AM [facility] Platelet Count 185 150 - 420 x10E9/L 04/01/2025 3:32 AM [facility] MPV 9.3 7.8 - 11.4 fL 04/01/2025 3:32 AM [facility] Neutrophil % 67.7 41.0 - 74.0 % 04/01/2025 3:32 AM [facility] Lymphocyte % 23.4 17.0 - 47.0 % 04/01/2025 3:32 AM [facility] Monocyte % 8.3 3.0 - 11.0 % 04/01/2025 3:32 AM CDT [facility] Eosinophil % 0.1 0.0 - 7.0 % 04/01/2025 3:32 AM [facility] Basophil % 0.0 0.0 - 1.6 % 04/01/2025 3:32 AM T [facility] Immature Granulocytes % 0.5 0.0 - 1.0 % 04/01/2025 3:32 AM T [facility] Neutrophil Absolute 5.62 1.60 - 7.50 x10E9/L 04/01/2025 3:32 AM T [facility] Lymphocyte Absolute 1.94 1.00 - 4.40 x10E9/L 04/01/2025 3:32 AM [facility] Monocyte Absolute 0.69 0.15 - 1.00 x10E9/L 04/01/2025 3:32 AM [facility] Eosinophil Absolute 0.01 0.00 - 0.60 x10E9/L 04/01/2025 3:32 AM [facility] Basophil Absolute 0.00 0.00 - 0.13 x10E9/L 04/01/2025 3:32 AM [facility] Blood BLOOD SPECIMEN / Unknown Lab Venipuncture / Unknown 04/01/2025 3:06 AM CDT 04/01/2025 3:23 AM CDT Shazia Chavez MD LAB - HEMATOLOGY ORDERABLES Final Result Performing Organization Address City/State/[facility] Co de Phone Number [facility] [address] [place] [address], [facility] [phone] * (ABNORMAL) COMPREHENSIVE METABOLIC PANEL (04/01/2025 3:06 AM CDT) Only the most recent of4 resultswithin the time period is included. BUN 8 7 - 26 mg/dL 04/01/2025 3:52 AM [facility] Creatinine 0.63 0.56 - 0.96 mg/dL 04/01/2025 3:52 AM [facility] Sodium 139 136 - 145 mmol/L 04/01/2025 3:52 AM [facility] Potassium 4.3 3.5 - 4.5 mmol/L 04/01/2025 3:52 AM [facility] Chloride 108(H) 98 - 107 mmol/L 04/01/2025 3:52 AM [facility] CO2 22 22 - 29 mmol/L 04/01/2025 3:52 AM [facility] Glucose 98 70 - 99 mg/dL 04/01/2025 3:52 AM [facility] Calcium 8.7 8.4 - 10.2 mg/dL 04/01/2025 3:52 AM [facility] Protein Total 6.7 6.0 - 8.3 g/dL 04/01/2025 3:52 AM [facility] Albumin 3.8 3.4 - 5.0 g/dL 04/01/2025 3:52 AM [facility] Bilirubin Total 0.3 0.2 - 1.2 mg/dL 04/01/2025 3:52 AM [facility] Alkaline Phosphatase 48 40 - 150 U/L 04/01/2025 3:52 AM [facility] ALT 14 5 - 55 U/L 04/01/2025 3:52 AM [facility] AST 21 5 - 34 U/L 04/01/2025 3:52 AM [facility] Anion Gap 9 6 - 16 04/01/2025 3:52 AM [facility] BUN/Creatinine Ratio 13 7 - 23 04/01/2025 3:52 AM [facility] Osmolality Calculated 286 275 - 295 mOsm/kg 04/01/2025 3:52 AM [facility] Albumin/Globulin Ratio 1.3 1.1 - 2.3 04/01/2025 3:52 AM [facility] eGFR by CKD-EPI >90 >=90 mL/min/1.7 3 m2 04/01/2025 3:52 AM [facility] Comment:Estimated Glomerular Filtration Rate (eGFR) calculated using the CKD-EPI Creatinine Equation (2020), per the National Kidney Foundation and [place] Society of Nephrology recommendations. Blood BLOOD SPECIMEN / Unknown Lab Venipuncture / Unknown 04/01/2025 3:06 AM CDT 04/01/2025 3:23 AM CDT us Shazia Chavez MD LAB - CHEMISTRY ORDERABLES F inal Result Performing Organization Address City/[facility]/ZIP Co de Phone Number [address] [address], [facility] [phone] * (ABNORMAL) PHOSPHORUS BLOOD (04/01/2025 3:06 AM CDT) Only the most recent of4 resultswithin the time period is included. Phosphorus 2.3(L) 2.9 - 5.1 mg/dL 04/01/2025 3:52 AM CDT [facility] Blood BLOOD SPECIMEN / Unknown Lab Venipuncture / Unknown 04/01/2025 3:06 AM CDT 04/01/2025 3:23 AM CDT Shazia Chavez MD LAB - CHEMISTRY ORDERABLES F inal Result Performing Organization Address [facility] Co de Phone Number [address] [address], [place] [phone] * MAGNESIUM BLOOD (04/01/2025 3:06 AM CDT) Only the most recent of4 resultswithin the time period is included. Magnesium 2.1 1.6 - 2.6 mg/dL 04/01/2025 3:52 AM CDT [facility] Blood BLOOD SPECIMEN / Unknown Lab Venipuncture / Unknown 04/01/2025 3:06 AM CDT 04/01/2025 3:23 AM CDT us Shazia Chavez MD LAB - CHEMISTRY ORDERABLES F inal Result Performing Organization Address City/[facility]/ZIP Co de Phone Number [address] [address], [place] [phone] * CT Abdomen Pelvis Wo Contrast (03/31/2025 2:38 PM CDT) Anatomical Region Laterality Modality Abdomen, Pelvis Computed Tomogra phy 03/31/2025 3:54 PM CDT Impressions 03/31/2025 9:32 PM CDT Impression: 1.No acute process identified in the abdomen or pelvis. 2.Colonic diverticulosis without evidence of diverticulitis. 3.Bilateral small volume pleural effusions. > Dictated by Sharon Davenport Dr, MD (residential building inspector). > Dictated by Crystal Lapper I, Juan Rosales MD have personally reviewed and interpreted this examination/study. > Interpreting Provider: Juan Rosales MD on 03/31/2025 9:32 PM Narrative 03/31/2025 9:32 PM CDT PROCEDURE: CT ABDOMEN PELVIS WO CONTRAST, DATE/TIME OF EXAM: 03/31/2025 2:39 PM, LOCATION [facility] INDICATION: R10.84: Abdominal pain, generalized ADDITIONAL CLINICAL [...] DATE/TIME OF EXAM: 03/31/2025 2:39 PM, LOCATION [facility] INDICATION: R10.84: Abdominal pain, generalized ADDITIONAL CLINICAL [...] > Dictated by Sharon Davenport Dr, MD (residential building inspector). > Dictated by Crystal Lapper I, Juan Rosales MD have personally reviewed and interpreted this examination/study. > Interpreting Provider: Juan Rosales MD on 59:32 PM us Shazia Chavez MD CT ORDERABLES Final Result * (ABNORMAL) HGB HCT PANEL (03/31/2025 12:44 PM CDT) Only the most recent of2 resultswithin the time period is included. Hemoglobin 8.4(L) 11.9 - 15.8 g/dL 03/31/2025 1:01 PM CDT [facility] Hematocrit 24.6(L) 34.8 - 46.1 % 03/31/2025 1:01 PM CDT [facility] Blood BLOOD SPECIMEN / Unknown Venipuncture / Unknown 03/31/2025 12:44 PM CDT 03/31/2025 12:54 PM CDT Shazia Chavez MD LAB - HEMATOLOGY ORDERABLES Final Result [address] [address], [place] [phone] * TSH REFLEX FREE T4 (03/31/2025 5:03 AM CDT) TSH 0.498 0.350 - 4.940 uIU/mL 03/31/2025 6:56 AM CDT [facility] Blood BLOOD SPECIMEN / Unknown Lab Venipuncture / Unknown 03/31/2025 5:03 AM CDT 03/31/2025 6:04 AM CDT Shazia Chavez MD LAB - CHEMISTRY ORDERABLES F inal Result Performing Organization Address City/[facility]/ZIP Co de Phone Number [address] [address], [place] [phone] * HEMOGLOBIN A1C (03/31/2025 5:03 AM CDT) Hemoglobin A1c 5.0 <=5.6 % 03/31/2025 1:45 PM CDT [facility] Estimated Average Glucose 97 mg/dL 03/31/2025 1:45 PM T [facility] Comment: HbA1c Interpretation: Normal : < 5.7% Pre-diabetes: 5.7-6.4% Diabetes: Equal to or greater than 6.5% Test results diagnostic of diabetes should be repeated for confirmation. Treatment target values recommended by ADA and other clinical organizations should be used to evaluate metabolic control in patients. Reference: [place] Diabetes Association, Standards of Care in Diabetes -2020 In patients 70 years and older consider HbA1c target range of 7.0-7.5% (Reference: Zion Adkins et al. JAMDA. 2012) The Sebia assay for the measurement of HbA1c is a National Glycohemoglobin Standardization Program (NGSP) certified method. Blood BLOOD SPECIMEN / Unknown Lab Venipuncture / Unknown 03/31/2025 5:03 AM CDT 03/31/2025 6:00 AM CDT us Shazia Chavez MD LAB - CHEMISTRY ORDERABLES F inal Result [address] [address], [facility] [phone] * (ABNORMAL) LIPID PROFILE (03/31/2025 5:03 AM CDT) Cholesterol Total 177 <200 mg/dL 03/31/2025 6:43 AM T [facility] HDL 56 >40 mg/dL 03/31/2025 6:43 AM [facility] Comment: ATP III Classification of HDL Cholesterol: <40 mg/dL: Considered a major risk factor. >60 mg/dL: Considered a negative risk factor. LDL Calculated 109(H) <100 mg/dL 03/31/2025 6:43 AM T [facility] Comment: ATP III Classification of LDL Cholesterol: <100 mg/dL: Optimal 100 - 129 mg/dL: Near Optimal/Above Optimal 130 - 159 mg/dL: Borderline High 160 - 189 mg/dL: High >190 mg/dL: Very High LDL is calculated using the Friedewald equation. Triglycerides 58 <150 mg/dL 03/31/2025 6:43 AM T [facility] Comment: ATP III Classification of Triglycerides: <150 mg/dL: Normal 150 - 199 mg/dL: Borderline High 200 - 400 mg/dL: High >500 mg/dL: Very High Blood BLOOD SPECIMEN / Unknown Lab Venipuncture / Unknown 03/31/2025 5:03 AM CDT 03/31/2025 6:04 AM CDT us Shazia Chavez MD LAB - CHEMISTRY ORDERABLES F inal Result Performing Organization Address City/[facility]/ZIP Co de Phone Number [facility] [address] [place] [address], [facility] [phone] * EKG 12-Lead (03/30/2025 10:44 AM CDT) Only the most recent of3 resultswithin the time period is included. Ventricular Rate 95 BPM [facility] MUSE Atrial Rate 95 BPM [facility] MUSE P-R Interval 130 ms [facility] MUSE QRS Duration ms 80 ms [facility] MUSE Q-T Interval ms 382 ms [facility] MUSE QTC Calculation (Bezet) 480 ms [facility] MUSE Calculated P [place] 64 degrees [facility] MUSE Calculated R [place] 39 degrees [facility] MUSE Calculated T [place] 50 degrees [facility] MUSE Interpretation EKG NORMAL SINUS RHYTHM LOW VOLTAGE QRS PROLONGED QT ABNORMAL ECG WHEN COMPARED WITH ECG OF 29-MAR-2025 06:23, PREMATURE VENTRICULAR COMPLEXES ARE NO LONGER PRESENT Confirmed by MD DO, CHRISTOPHER ([id number]) on 03/31/2025 8:27:22 AM [facility] MUSE 03/30/2025 10:4 4 AM CDT 03/31/2025 8:27 AM CDT Shazia Chavez MD ECG ORDERABLES Edited Resul t - Final Performing Organization Address [facility] Co de Phone Number [facility] MUSE * (ABNORMAL) BLOOD GASES ART + COOX PANEL (03/30/2025 7:54 AM CDT) Only the most recent of2 resultswithin the time period is included. pH Arterial 7.39 7.35 - 7.45 pH 03/30/2025 8:06 AM CDT [facility] pO2 Arterial 145(H) 80 - 100 mmHg 03/30/2025 8:06 AM CDT [facility]OR[facility]ORY [facility] pCO2 Arterial 32(L) 35 - 45 mmHg 8:06 AM T [facility] LABORATORY [facility] HCO3 Arterial 19.4(L) 20.0 - 30.0 mmol/L 03/30/2025 8:06 AM T [facility] BE Arterial -4.8(L) -2.0 - 2.0 mmol/L 03/30/2025 8:06 AM [facility] Oxyhemoglobin Arterial 97.2 % 03/30/2025 8:06 AM [facility] Dexoyhemoglobin (HHB) % <1.0 % 03/30/2025 8:06 AM [facility] Methemoglobin 1.0 0.0 - 2.0 % 03/30/2025 8:06 AM [facility] Carboxyhemoglobin 1.2 0.0 - 2.0 % 2024 8:06 AM [facility] O2 Content Arterial 14.9 Interpret within clinical context ml/dL 03/30/2025 8:06 AM [facility] Hemoglobin by COOX 10.7(L) 12.0 - 15.6 g/dL 03/30/2025 8:06 AM [facility] O2 Saturation Arterial 99 90 - 100 % 03/30/2025 8:06 AM [facility] FI O2 Arterial 40.0 % 03/30/2025 8:06 AM [facility] Blood, arterial ARTERIAL BLOOD SPECIMEN / Unknown Arterial Puncture / Unknown 03/30/2025 7:54 AM [facility] 03/30/2025 8:02 AM [facility] - 03/30/2025 8:06 AM [facility] N[facility] Carboxyhemoglobin Normal Concentration: Non-smokers: 0-2%; Smokers: 0-9%; Toxic: >20% Shazia Chavez MD LAB - BLOOD GASES ORDERABLES Final Result [facility] [address] [place] [address], [facility] [phone] * (ABNORMAL) CALCIUM IONIZED WHOLE BLOOD (03/30/2025 4:01 AM [facility] N[facility]ED [facility]) Pathologist [facility] Calcium Ionized 1.11 mmol/L 03/30/2025 4:36 AM [facility] pH 7.43 7.35 - 7.45 pH 03/30/2025 4:36 AM [facility] Ionized Calcium pH Adjusted 1.12(L) 1.19 - 1.34 mmol/L 03/30/2025 4:36 AM CDT [facility] Blood BLOOD SPECIMEN / Unknown Venipuncture / Unknown 03/30/2025 4:01 AM CDT 03/30/2025 4:12 AM CDT Shazia Chavez MD LAB - CHEMISTRY ORDERABLES F inal Result [facility] [address] [place] [address], [facility] [phone] * XR Chest 1Vw Portable (03/29/2025 6:30 [...] DATE/TIME OF EXAM: 03/29/2025 7:04 PM, LOCATION [facility] INDICATION: T88.4XXA: Difficult airway for intubation, initial encounter ADDITIONAL CLINICAL INFORMATION: Ordering Provider Reason For Exam: ETT placement Technologist Note: Additional: COMPARISON: None. Procedure Note Familia Ramirez MD - 03/30/2025 PROCEDURE: XR CHEST 1VW PORTABLE, DATE/TIME OF EXAM: 03/29/2025 7:04PM, LOCATION [facility] INDICATION: T88.4XXA: Difficult airway for intubation, initial [...] - 57 mg/dL 03/29/2025 5:28 PM CDT [facility] Blood BLOOD SPECIMEN / Unknown Venipuncture / Unknown 03/29/2025 4:52 PM CDT 03/29/2025 5:01 PM CDT Shazia Chavez MD LAB - SEROLOGY ORDERABLES Fi nal Result [address] [address], [place] [phone] * COMPLEMENT C3 (03/29/2025 4:52 PM CDT) Complement C3 97 82 - 193 mg/dL 03/29/2025 5:28 PM CDT [facility] Blood BLOOD SPECIMEN / Unknown Venipuncture / Unknown 03/29/2025 4:52 PM CDT 03/29/2025 5:01 PM CDT Shazia Chavez MD LAB - CHEMISTRY ORDERABLES F inal Result [address] [address], [place] [phone] * ACT LR - POCT ([facility]) (03/29/2025 2:48 PM CDT) Only the most recent of10 resultswithin the time period is included. ACT LR 128 See result comments sec 04/02/2025 7:09 AM CDT [facility] Blood BLOOD SPECIMEN / Unknown 03/29/2025 2:48 PM CDT 04/02/2025 7:09 AM CDT Narrative [facility] - 04/02/2025 7:09 AM CDT ACT-LR Therapeutics ranges are: Cardiac clinical laboratory science professor = 200-300 seconds Sheath pull = ACT [...] From established ranges from the company manual us Kailey Tomlin MD LAB - COAGULATION ORDERABLES Fin al Result [facility] [address] [place] [address], [facility] [phone] * CCL ABLATION ATRIAL FIB RF, CCL [...] airway protection. EP Study: RR- 626 ms HI-159 ms QT-397 ms QRS- 63 ms AH-71 ms HV-41 ms Kailey Tomlin MD ELECTROPHYSIOLOGY CUPID PROCS Final Result * ECHO DAVID W INTERVENTION (03/29/2025 8:46 AM CDT) Anatomical Region Laterality Modality Ultrasound 03/29/2025 8:32 AM CDT Narrative 04/05/2025 4:26 PM CDT Patient Info Name: Radha uW Age: 55 years : 1970 Gender: Female Exam Date: 03/29/2025 8:32 AM Patient Status: [facility] Study Site: [facility] Primary Location: [facility] EStudy Info Exam Type: ECHO DAVID W INTERVENTION Indications I48.0 - Paroxysmal atrial fibrillation (HCC) * A transesophageal echocardiogram is performed. Staff Referring Physician: Kailey Tomlin Ordering Provider: Kailey Tomlin Attending Physician: Kailey Tomlin Retail [employer] Restaurant Associate: Israel Esparza Procedure Details The patient arrived in a fasting state after obtaining informed consent. The transesophageal probe was passed without difficulty into the posterior pharynx, mid-esophagus, and distal esophagus. Imaging was performed at multiple levels. The patient tolerated the procedure well and there were no complications. The patient was transferred out of the examination area in satisfactory condition. Probe passed by the coin machine operator without difficulty. Atrial Appendage The left atrial appendage was interrogated with PW doppler, color flow, and echo contrast. No KEY thrombus was noted. Report Signatures Finalized by Kailey Tomlin on 04/05/2025 04:26 PM Procedure Note Kailey Tomlin MD - 04/05/2025 Patient Info Name: Radha Wu Age: 55 years : 1970 Gender: Female Exam Date: 03/29/2025 8:32 AM Patient Status: [facility] [place] Study Site: [facility] Primary Location: [facility] EStudy Info Exam Type: ECHO DAVID W INTERVENTION Indications I48.0 - Paroxysmal atrial fibrillation (HCC) * A transesophageal echocardiogram is performed. Staff Referring Physician: Kailey Tomlin Ordering Provider: Kailey Tomlin Attending Physician: Kailey Tomlin [employer] Associate: Israel Esparza Procedure Details The patient arrived in a fasting state after obtaining informedconsent. The transesophageal probe was passed without difficulty into theposterior pharynx, mid-esophagus, and distal esophagus. Imaging was performed at multiple levels. The patient tolerated the procedure well and there wereno complications. The patient was transferred out of the examination areain satisfactory condition. Probe passed by the coin machine operator withoutdifficulty. Atrial Appendage The left atrial appendage was interrogated with PW doppler, color flow,and echo contrast. No KEY thrombus was noted. Report Signatures Finalized by Kailey Tomlin on 04/05/2025 04:26 PM Kailey Tomlin MD ECHO CUPID Final Result * ARTERIAL LINE PERFORMABLE (03/29/2025 8:32 AM CDT) Narrative Jeaneth Henning APRN-GIS GEOGRAPHER - 03/29/2025 8:32 AM CDT Jeaneth Henning APRN-CRNA 03/29/2025 8:36 AM Arterial Line Placement Procedure Note Patient Location: OR. Insertion Time: 03/29/2025 8:15 AM Procedure: Arterial Line ([id number]) Procedure Section Indications: continuous blood pressure monitoring [...] Staples MD. Additional Comments: Atraumatic placement of [place].. Torey Staples MD GENERAL ANESTHESIA ORDERABLE S Final Result * ETT LINE PERFORMABLE (03/29/2025 8:24 AM CDT) Narrative Torey Staples MD - 03/29/2025 8:24 AM CDT Torey Staples MD 03/29/2025 8:29 AM Endotracheal Tube Placement: Patient Location: OR. Intubation Event Date/Time: 03/29/2025 8:10 AM Procedure: intubation ([id number]) Procedure Section: Sedation: IV sedation. Indications for [...] the time period is included. Pathologist [facility] Antibody Screen NEG 7:26 AM CDT [facility] ABO Rh A POS 03/29/2025 7:26 AM CDT [facility] Blood Bank BLOOD SPECIMEN / Unknown Venipuncture / Unknown 03/29/2025 6:17 AM CDT 03/29/2025 6:29 AM CDT Samantha Reeves BLOCKER AND POLISHER-PLANNING DIRECTOR LAB - BLOOD BANK ORDERABLE S Final Result [facility] [address] [place] [address], [facility] [phone] * BASIC METABOLIC PANEL (CALCIUM TOTAL) (03/29/2025 6:17 AM CDT) Only the most recent of2 resultswithin the time period is included. Pathologist [facility] BUN 14 7 - 26 mg/dL 03/29/2025 6:56 AM [facility] Creatinine 0.75 0.56 - 0.96 mg/dL 03/29/2025 6:56 AM [facility] Sodium 139 136 - 145 mmol/L 03/29/2025 6:56 AM [facility] Potassium 3.8 3.5 - 4.5 mmol/L 03/29/2025 6:56 AM [facility] Chloride 106 98 - 107 mmol/L 03/29/2025 6:56 AM [facility] CO2 25 22 - 29 mmol/L 03/29/2025 6:56 AM CDT [facility] Glucose 76 70 - 99 mg/dL 03/29/2025 6:56 AM [facility] Calcium 9.4 8.4 - 10.2 mg/dL 03/29/2025 6:56 AM [facility] Anion Gap 8 6 - 16 03/29/2025 6:56 AM [facility] BUN/Creatinine Ratio 19 7 - 23 03/29/2025 6:56 AM [facility] Osmolality Calculated 287 275 - 295 mOsm/kg 03/29/2025 6:56 AM [facility] eGFR by CKD-EPI >90 >=90 mL/min/1.7 3 m2 03/29/2025 6:56 AM [facility] Comment:Estimated Glomerular Filtration Rate (eGFR) calculated using the CKD-EPI Creatinine Equation (2020), per the National Kidney Foundation and [place] recommendations. Blood BLOOD SPECIMEN / Unknown Venipuncture / Unknown 03/29/2025 6:17 AM CDT 03/29/2025 6:27 AM CDT Samantha Reeves BLOCKER AND POLISHER-PLANNING DIRECTOR LAB - CHEMISTRY ORDERABLES Final Result [facility] [address] [place] [address], [facility] [phone] * CT Cardiac Angio Struct Morph (03/07/2025 1:16 PM CDT) Anatomical Region Laterality Modality Chest Computed Tomogra phy 03/07/2025 1:42 PM CDT Impressions 03/08/2025 6:04 AM CDT Impression: Pulmonary vein measurements as described above for left atrial ablation. > Dictated by Jose Guadalupe Maldonado DO (residential building inspector). > Dictated by Crystal Lapper IJuan MD have personally reviewed and interpreted this [...] > Dictated by Jose Guadalupe Maldonado DO (residential building inspector). > Dictated by Crystal Lapper I, Juan Rosales MD have personally reviewed and interpreted this examination/study. > Interpreting Provider: Juan Rosales MD on 56:04 AM us Kailey Tomlin MD CT ORDERABLES Final Result * (ABNORMAL) ISTAT CREATININE (03/07/2025 12:52 PM CDT) Creatinine POCT 0.80 0.60 - 1.30 mg/dL 03/07/2025 12:54 PM CDT [facility] eGFR by CKD-EPI 87(L) >90 mL/min/1.7 3 m2 03/07/2025 12:54 PM CDT [facility] Blood BLOOD SPECIMEN / Unknown 03/07/2025 12:52 PM CDT 03/07/2025 12:54 PM CDT us Kailey Tomlin MD LAB - POINT OF CARE ORDERABLES F inal Result [facility] [address] [place] [address], [facility] [phone] * ENDOSCOPY, COLON, DIAGNOSTIC (08/17/2023 9:23 AM RUSSIAN TEACHER) Report Endoscopy POC Endoscopy Department Report _ Patient Name: Radha Vega Procedure Date: 08/17/2023 9:23 AM Date of [...] bowel preparation was evaluated using the BBPS (Creighton Bowel Preparation Scale) with scores of: Right [...] non-farrell portions. Procedure Code(s): --- Professional --- 78339, 59, Colonoscopy, flexible; with control of bleeding, any method 82263, Colonoscopy, flexible; with removal of tumor(s), polyp(s), or other lesion(s) by snare technique 03299, 59, Colonoscopy, flexible; with biopsy, single or multiple Diagnosis Code(s): --- Professional --- D12.5, Benign neoplasm of sigmoid colon D12.8, Benign neoplasm of rectum K63.3, Ulcer of intestine R19.7, Diarrhea, unspecified CPT copyright 2021 [employer]. All rights reserved. The codes documented in this report are preliminary and upon inside parts sales review may be revised to meet current compliance requirements. Jorge Luis Mckay MD 08/17/2023 10:30:40 AM This report has been signed electronically. Note Initiated On: 08/17/2023 9:23 AM Number of Addenda: [address] [address] [facility] PROVATION 08/17/2023 9:23 AM RUSSIAN TEACHER Jorge Luis Fisher MD GI PROCEDURE ORDER ALTAGRACIA Edited Result - Final [facility] PROVATION from Last 3 Months or Most Recently Relevant to Health Maintenance Insurance [facility] Advance Directives * Full Code (Latest Code Status on File) Date Activated Date Inactivated Comments 03/29/2025 2:53 PM 04/01/2025 10:49 AM * Full Code Date Activated Date Inactivated Comments 08/14/2023 7:40 AM 08/19/2023 2:32 PM Care Teams Edger Machine Helper Relationship Specialty Start Date End Date Marcia Abrams APRN-RONY [address] [place] [address] [address] [place] [address] PCP - General Nurse Practitioner 08/20/23
== END 2025-05-31 12:15 | disposition home or self-care (01) ==
LOC: ANHBWCIMG 12:16
PROVIDERS: PCP Nurse Practitioner Adult Health; Visit Provider Nurse Practitioner Adult Health
DX: R10.9 Unspecified abdominal pain (principal)
CPT/HCPCS: 74018

== ENCOUNTER 2025-05-31 14:44 | Outpatient (CLI) | payer BC, SELFPAY ==
--- OUTSIDE RECORDS SUMMARY | 2024-03-23 12:30 | XMS_ITS ---
Author Organization [facility] [place] ([address]) Address [address] [place] [address] Care Team Providers Care Electroencephalograph Technician Name Role Phone Jose Alberto LOPEZ, Marcia Primary Care Provider Jania Jeaneth Candelario Unavailable [phone] Lashay Dunn Unavailable Unavailable Matilde Tomas Unavailable [phone] REASON FOR VISIT XOLAIR Social History Sex Assigned At : Social History Observation Description Sex Assigned At Female Encounters Encounter Location Date Provider Diagnosis [facility] [address] [place] [address] 03/23/2024 Matilde Tomas Plan Of Treatment No Information Progress Notes * Radha TOBINDOB:1970 (55 yo F)Acc No.[id number]:03/23/2024 XOLAIR 1-3 Patient: Radha MARRERO Provider: JOSEPH Regalado :1970 A ge:54 Y S ex:Female Date:03/23/2024 Address:[address] , [id number] Pcp:JESSICA Garcia Subjective: * Chief Complaints: * 1 . XOLAIR. * Medical History: Objective: * Vitals: Assessment: Plan: * Treatment: * Billing Information: * Visit Code: * Procedure Codes: * Electronic signature of JOSEPH Torres on 05/31/2025 at 03:51 PM CDT Sign off status: Pending * Provider: JOSEPH Regalado Date: 0 03/23/2024 Generated for Erin Hernández/Adrianna on: 1 03:51 PM CDT
--- OUTSIDE RECORDS SUMMARY | 2025-01-25 11:15 | XMS_ITS ---
Author Organization [facility] [place] ([address]) Address [address] [place] [address] Care Team Providers Care Drill Runner Name Role Phone Jose Alberto LOPEZ, Marcia Primary Care Provider Jania Jeaneth Candelario Unavailable [phone] Lashay Dunn Unavailable Unavailable Gilberto Richter Unavailable [phone] REASON FOR VISIT Hives follow-up Eczema follow-up Social History Sex Assigned At : Social History Observation Description Sex Assigned At Female Encounters Encounter Location Date Provider Diagnosis [facility] [address] [place] [address] 01/25/2025 Gilberto Richter Plan Of Treatment No Information Progress Notes * MAHAD RadhaDOB:1970 (55 yo F)Acc No.[id number]:01/25/2025 Progress Notes Patient: Radha MARRERO Provider: Lucille Richter PA-C :1970 A ge:55 Y S ex:Female Date:01/25/2025 Address:[address] [id number] Pcp:JESSICA Garcia Subjective: * Chief Complaints: * 1 . Hives follow-up Eczema follow-up. * Medical History: Objective: * Vitals: Assessment: Plan: * Treatment: * Billing Information: * Visit Code: * Procedure Codes: * Electronic signature of Ayad Richter PA-C on 05/31/2025 at 03:51 PM CDT Sign off status: Pending * Provider: Lucille Richter PA-C Date: 0 01/25/2025 Generated for Erin lerner/Cory/Adrianna on: 1 03:51 PM CDT
--- NOTE | ~2025-05-31 | CT_ITS ---
CT abdomen pelvis wo con INDICATION:R10.9 - Unspecified abdominal pain . COMPARISON: None. TECHNIQUE: Axial 2.5 mm images of the abdomen were obtained without IV or oral contrast. Diagnostic sensitivity is limited due to lack of IV contrast. FINDINGS: The lung bases are clear. The liver parenchyma is unremarkable. No intrahepatic mass or ductal dilatation is evident. Increased density within the gallbladder may represent sludge. Follow-up ultrasound recommended. The pancreas and spleen are normal in appearance. The adrenal glands are symmetric in size. The kidneys are unremarkable. No intrarenal stones are noted. There is no hydronephrosis. Evaluation of the stomach and bowel loops are limited due to lack of oral contrast. The appendix is surgically absent. The bladder and rectum are normal. No free intraperitoneal fluid or air is evident. There is no significant retroperitoneal lymphadenopathy. The aorta, visceral vessels and renal arteries demonstrate normal caliber. The lower thoracic and lumbar vertebrae are in normal alignment. IMPRESSION: No acute abnormality is noted in the abdomen and pelvis. Increased density within the gallbladder sludge. All CT scans at this facility are performed using low dose modulation techniques as appropriate to perform exam including the following: automated exposure control; use of iterative reconstruction technique; adjustment of the mA and/or kV according to patient size (this includes techniques or standardized protocols for targeted exams where dose is matched to indication/reason for exam). Reviewed, dictated and finalized at location S. IMPRESSION: No acute abnormality is noted in the abdomen and pelvis. Increased density within the gallbladder sludge. All CT scans at this facility are performed using low dose modulation techniqu es as appropriate to perform exam including the following: automated exposure c ontrol; use of iterative reconstruction technique; adjustment of the mA and/or kV according to patient size (this includes techniques or standardized protocol s for targeted exams where dose is matched to indication/reason for exam).
--- OUTSIDE RECORDS SUMMARY | 2025-05-31 15:51 | XMS_ITS | Patient Health Record ---
Author Organization Formerly [facility] ([address]) Address [address] [place] [address] Care Team Providers Care Head Boys Golf Coach Name Role Phone Marcia Victoria Primary Care Provider Jeaneth Mcdermott Unavailable [phone] Lashay Dunn Unavailable Unavailable Gilberto Richter Unavailable [phone] Allergies Allergen (clinical drug ingredient) Drug/Non Drug Allergy documented on EMR Reaction Allergy Type Onset Date Status PEG hives Drug Allergy Active sulfamethoxazole / trimethoprim Sulfamethoxazole-Tr imethoprim rash Drug Allergy Active Reason For Referral No Information Medications Medication SIG (Take, Route, Frequency, Duration) Notes Start Date End Date Status Dupixent 300 MG/2ML as directed Subcutaneous Active Xolair 150 MG/ML inject 300 mg Subcutaneous every 4 weeks; Duration: 30 days Active Metoprolol Succinate 50 MG 1 capsule Orally Once a day Active Tylenol 325 MG 1 tablet as needed Orally every 6 hrs Not-Taking Multaq 400 MG 1 tablet with meals Orally Twice a day Active Amiodarone HCl 200 MG 1 tablet Orally On ce a day Not-Taking Eliquis 5 MG as directed Orally Active Toprol XL 50 MG 1 tablet Orally Once a day Not-Taking Montelukast Sodium 10 MG 1 tablet Orally at night; Duration: 90 days Active Pantoprazole Sodium 40 MG 1 tablet 1/2 t o 1 hour before morning meal Orally Once a day Active Famotidine 40 MG 1 tablet Orally Twic e a day, TAKE WITH ZYRTEC; Duration: 90 days Active Albuterol Sulfate HFA 108 (90 Base) MCG/ACT 1 puff as needed Inhalation every 4 hrs Active Cetirizine HCl 10 MG 1 tablet Orally Twi ce a day; Duration: 30 days Active Triamcinolone Acetonide 0.1 % 1 application Externally Twice a day; Duration: 10 days Active Famotidine 40 MG 1 tablet Orally Twic e a day, TAKE WITH ZYRTEC; Duration: 90 days Not-Taking Eucrisa 2 % 1 application Externally Twice a day; Duration: 30 days Active Xolair 75 MG/0.5ML 300mg Subcutaneous every 4 weeks; Duration: 30 days 03/16/2024 Not-Taking EpiPen 2-Manfred 0.3 MG/0.3ML as directed In jection once; Duration: 30 days Active hydrOXYzine HCl 25 MG 1 tablet as needed Orally up to 3 times a day only if needed for severe itching; Duration: 15 days Active hydrOXYzine HCl 25 MG 1 tablet as needed Orally up to 3 times a day only if needed for severe itching; Duration: 15 days Not-Taking Immunizations Vaccine Route Administration Date Status Comme nts FluZone Quadrivalent Unknown 08/09/2017 Administered Po rtal Information Social History Tobacco Use: Social History Observation Description Date Details (start date - stop date) Never Smoker NA - NA Sex Assigned At : Social History Observation Description Sex Assigned At Female Tobacco Control (Standard) Question Answer Notes Tobacco use: Nonsmoker AUDIT-C (Standard) Question Answer Notes Did you have a drink containing alcohol in the p ast year? No Points 0 Interpretation Negative Problems Problem Type SNOMED Code ICD Code Onset Dates Problem Status W/U Status Risk Notes Problem Wheezing (74184660) Wheezing (R06.2) Active confirmed Problem Chronic rhinitis (40204371) Chronic rhinitis (J31.0) Active confirmed Problem Hypertrophy of nasal turbinates (28193468) Hypertrophy of nasal turbinates (J34.3) Active confirmed Problem Uncomplicated moderate persistent asthma (307011245) Moderate persistent asthma, uncomplicated (J45.40) Active confirmed Problem Uncomplicated severe persistent asthma (552536575) Severe persistent asthma, uncomplicated (J45.50) Active confirmed Problem Elevated blood pressure reading without diagnosis of hypertension (849271831) Elevated blood-pressure reading, without diagnosis of hypertension (R03.0) Active confirmed Problem Allergic rhinitis caused by animal hair and dander (968988781915687) Allergic rhinitis due to animal (cat) (dog) hair and dander (J30.81) Active confirmed Problem Atopic neurodermatitis (760178425) Atopic neurodermatitis (L20.81) Active confirmed Problem Eruption of skin (593035166) Rash and other nonspecific skin eruption (R21) Active confirmed Problem Urticaria (747511206) Other urticaria (L50.8) Active confirmed Vital Signs Respiratory Rate 17 /min 05/31/2025 Blood pressure diastolic 86 mm Hg 05/31/2025 Oximetry 100 % 05/31/2025 Height 63 in 05/31/2025 Blood pressure systolic 144 mm Hg 05/31/2025 Weight 139.4 lbs 05/31/2025 BMI 24.69 kg/m2 05/31/2025 Encounters Encounter Location Date Provider Diagnosis [facility] [address] [address] 10/05/2024 Jeaneth Young Atopic neurodermatit is L20.81 ; Prurigo nodularis L28.1 ; Rash and other nonspecific skin eruption R21 ; Other urticaria L50.8 ; Allergic rhinitis due to animal (cat) (dog) hair and dander J30.81 ; Wheezing R06.2 and Elevated blood-pressure reading, without diagnosis of hypertension R03.0 [facility] [address] [place] [phone] 06/08/2024 Jeaneth Young Rash and other nonspecific skin eruption R21 ; Atopic neurodermatitis L20.81 ; Other urticaria L50.8 ; Allergic rhinitis due to animal (cat) (dog) hair and dander J30.81 ; Wheezing R06.2 and Elevated blood-pressure reading, without diagnosis of hypertension R03.0 [facility] [address] [place] [address] 07/13/2024 Jeaneth Young Atopic neurodermatit is L20.81 ; Prurigo nodularis L28.1 ; Rash and other nonspecific skin eruption R21 ; Other urticaria L50.8 ; Allergic rhinitis due to animal (cat) (dog) hair and dander J30.81 ; Wheezing R06.2 and Elevated blood-pressure reading, without diagnosis of hypertension R03.0 [facility] [address] [place] [address] 05/31/2025 Jeaneth Stone Atopic neurodermatit is L20.81 ; Prurigo nodularis L28.1 ; Rash and other nonspecific skin eruption R21 ; Other urticaria L50.8 ; Allergic rhinitis due to animal (cat) (dog) hair and dander J30.81 ; Wheezing R06.2 and Elevated blood-pressure reading, without diagnosis of hypertension R03.[address] [address] 09/21/2024 Jeaneth Stone [address] [address] 09/21/2024 Jeaneth Stone [address] [address] 08/15/2024 Jeaneth Stone [address] [address] 08/15/2024 Jeaneth Chase Atopic neurodermatit is L20.[address] [address] 07/28/2024 Jeaneth Stone [address] [address] 07/26/2024 Jeaneth Stone [address] [address] 07/03/2024 Jeaneth Stone [address] [address] 10/12/2024 Jeaneth Stone [address] [address] 10/12/2024 Jeaneth Chase Assessments Encounter Date Diagnosis (ICD Code) Assessment Notes Treatment Notes Treatment Clinical Notes Section Notes 06/08/2024 Atopic neurodermatitis (ICD-10 - L20.81) Radha has had hives now starting roughly 10 years ago. Previously followed by Dr. Doan at [facility] and diagnosed with CSU. She also was seen by [facility]. She has failed high dose H1 and [...] ago. Previously followed by Dr. Doan at [facility] and diagnosed with CSU. She also was seen by [facility]. She has failed high dose H1 and [...] 08/15/2024 Atopic neurodermatitis (ICD-10 - L20.81) 10/05/2024 Atopic neurodermatitis (ICD-10 - L20.81) Radha had hives now starting roughly 10 years ago. Previously followed by Dr. Doan at [facility] and diagnosed with CSU. She also was seen by [facility]. She has failed high dose H1 and [...] week dosing -Return in 3 months 10/05/2024 Prurigo nodularis (ICD-10 - L28.1) See plan above 05/31/2025 Prurigo nodularis (ICD-10 - L28.1) See plan above 05/31/2025 Atopic neurodermatitis (ICD-10 - L20.81) Radha had hives now starting roughly 10 years ago. Previously followed by Dr. Doan at [facility] and diagnosed with CSU. She also was seen by [facility]. She has failed high dose H1 and [...] Q2 week dosing -Return in 3 months 05/31/2025 Rash and other nonspecific skin eruption (ICD-10 [...] to avoid and list on allergy list 10/05/2024 Rash and other nonspecific skin eruption [...] L50.8) Hold Xolair given lack of benefit 05/31/2025 Other urticaria (ICD-10 - L50.8) Hold Xolair given lack of benefit 10/05/2024 Allergic rhinitis due to animal (cat) (dog) hair and dander (ICD-10 - J30.81) Prior allergy testing a few times in life. No prior immunotherapy -ImmunoCaps received showing mild elevation to cat dander. Total IgE 73. Denies recent symptoms. 05/31/2025 Allergic rhinitis due to animal (cat) (dog) hair and dander (ICD-10 - J30.81) Prior allergy testing a few times in life. No prior immunotherapy -ImmunoCaps received showing mild elevation to cat dander. Total IgE 73. Denies recent symptoms. 07/13/2024 Allergic rhinitis due to animal (cat) [...] patient is not interested at this time. 06/08/2024 Elevated blood-pressure reading, without diagnosis of [...] patient is not interested at this time. 05/31/2025 Wheezing (ICD-10 - R06.2) Reports childhood asthma, [...] patient is not interested in use 10/05/2024 Wheezing (ICD-10 - R06.2) Reports childhood [...] but patient is not interested in use 07/13/2024 Elevated blood-pressure reading, without diagnosis of hypertension (ICD-10 - R03.0) BP elevated today without symptoms of urgency or emergency. Continue serial checks and follow-up with PCP 10/05/2024 Elevated blood-pressure reading, without diagnosis of hypertension (ICD-10 - R03.0) BP elevated today without symptoms of urgency or emergency. Continue serial checks and follow-up with PCP -slated for cardiology visit 05/31/2025 Elevated blood-pressure reading, without diagnosis of hypertension (ICD-10 - R03.0) BP elevated today without symptoms of urgency or emergency. Continue serial checks and follow-up with PCP -slated for cardiology visit 06/08/2024 Other 10/05/2024 Other 05/31/2025 Other 07/13/2024 Other Plan Of Treatment Pending Test Test Name Order Date CHRONIC URTICARIA 02/24/2024 ANTI-IGE 02/24/2024 CU PANEL 02/24/2024 Insurance Providers Payer Name Payer Address Payer Phone Subscriber Number Group Number Insured Name Patient Relationship to Insured Coverage Start Date Coverage End Date [facility] [address] [place] [address] [id number] Wu Radha Self - patient is the insured [employer] Copay Program [address] [place] [address] [id number] Bryce Radha Self - patient is the insured Medical (General) History Medical History History ICD Code Other urticaria L50.8 Surgical History Surgery Date(Month/Year) Sinus 08/09/2006 Sinus 08/09/2007 appendix 08/09/2009 broken wrist 08/09/2016 breast implants 08/09/2016 hysterectomy Ablation 04/01/2025 Hospitalization History Reason Date(Month/Year) Afib 09/23/2024 Appendix 08/09/2009 child 04/24/1989 child 02/22/1988 [facility] Callagenous Colitis 08/12/2023
--- OUTSIDE RECORDS SUMMARY | 2025-05-31 15:51 | XMS_ITS | Encounter Summary ---
Author Organization [facility] Address [address] [place] [address] Phone Care Team Providers Care Actuarial Associate Name Role Phone Jorge Luis Weems MD Unavailable Unavailab Sharmin Cosby MD Primary Care Provider Marcia Abrams APRN Primary Care Provider [phone] Kailey Tomlin MD Unavailable Reason for Visit * Reason Comments Medication Refill Encounter Details Date Type Department Care Team (Late st Contact Info) Description 07/27/2022 Refill [facility] - Family Medicine [address] [place] [address] [place] [address] [place] [address] Medication Refill Social History Tobacco Use Types [...] Kailyn Cunha RN - 07/27/2022 1:33 PM MACHINIST [employer]IE Duplicate request. [employer] [employer] [facility] * Telephone Encounter - Grazyna Valdez RN - 07/27/2022 10:11 AM CST duplicate [facility] documented in this encounter Plan of Treatment Upcoming Encounters Date Type Department Care Team (Late st Contact Info) Description 08/15/2025 2:00 PM MACHIN[facility] [employer] Office Visit [facility] - Cardiology [facility] [address] [place] [address] Kailey Tomlin MD [address] [address] 05/17/2026 7:00 AM CDT Appointment [facility] [address] [place] [address] Marcia Abrams, SUBWAY TRAIN OPERATOR [address] [place] [address] Discharge Disposition: Discharged to home or Selfcare documented as of this encounter Visit Diagnoses Diagnosis Anxiety Anxiety state, unspecified documented in this encounter Additional Health Concerns Infection Onset Date Last Indicated Resolved Time COVID - 19 09/23/2024 09/23/2024 09/23/2024 1:12 PM MACHIN[employer] Respiratory Rule-Out 01/07/2025 01/07/2025 025 12:36 PM CDT Assessment Noted Time PHQ-9 Depression Total Score: 0 05/21/20 20 7:33 AM CDT documented as of this encounter Care Teams Actuarial Associate Relationship Specialty Start Date End Date Sharmin Guillaume MD PCP - General Family Medicine 09/16/17 01/24/24 Marcia Abrams APRN [address] [place] [address] PCP - General Advanced Practice Nurse 09/21/24 Jorge Luis Weems MD Consulting Physician Obstetrics & Gynecology 03/15/17 Kailey Tomlin MD [address] [address] Consulting Physician Cardiovascular Disease - Cardiology 12/21/24 documented as of this encounter
--- OUTSIDE RECORDS SUMMARY | 2025-05-31 15:51 | XMS_ITS | Clinical Summary ---
Author Organization [facility] Address [address] [place] [address] Care Team Providers Care Mailing Specialist Name Role Phone Marcia Abrams SKIP-RUFFLER Primary Care Provider + Source Comments [facility],non-owned Affiliates and Associated Physician Practices is amultiple site organization consisting of ambulatory clinics and hospital sitesin [place], [place], [place] and [place]. This disclosure is being madepursuant to the Care Everywhere program and may not contain all information available regarding this patient. Last updated 18.[facility] Allergies Active Allergy Reactions Criticality Noted Date [...] PM CDT Hospital Encounter [facility] - Cardiac Staker Surveying [address] [place] [phone] Kailey Tomlin MD Discharge Disposition: Home or Self Care 03/29/2025 7:48 AM CDT Anesthesia Event [facility] [address] [place] [phone] Torey Staples MD Osterloh, Joan Frances, RESEARCH LABORATORY MANAGER-CAKE DECORATOR 03/29/2025 7:15 AM CDT - 03/29/2025 12:36 PM CDT Surgery [facility] - [facility] St[facility] Surveying [address] [place] [phone] Kailey Tomlin MD Ablation - A-fib RF 03/29/2025 5:18 AM CDT - 04/01/2025 9:44 AM CDT Hospital Encounter [facility] 8N ACUTE [address] [place] [address] Kailey Tomlin MD Hassan, Abdalla H, MD Cardiac Catheterization Discharge Disposition: Home or Self Care 03/29/2025 Travel 03/23/2025 3:00 PM CDT - 03/23/2025 11:59 PM CDT Hospital Encounter [facility] LAB OP DRAW STATION [address] [place] [address] Discharge Disposition: Home or Self Care 03/23/2025 2:26 PM CDT - 03/23/2025 2:56 PM CDT Hospital Encounter [facility] PAT [address] [place] [address] Lourdes Tomlin MD Discharge Disposition: Home or Self Care 03/23/2025 Travel 03/09/2025 Telephone [facility] - Cardiology [address] [place] [address] Nikko Tejada RN Cardiac Ablation 03/07/2025 12:31 PM CDT - 03/07/2025 11:59 PM CDT Hospital Encounter [facility] CAT SCAN [address] [place] [address] Kailey Tomlin MD Discharge Disposition: Home or [...] and heating? Not hard at all 03/31/2025 [facility] - Occupational Stress [...] place to sleep or slept in a chcf (including now)? No 08/14/2023 Housing Stability Vital Sign Answer Gatito e Recorded In the last 12 months, was t here a time when you were not able to pay the mortgage or rent on time? No 03/31/2025 In the past 12 months, how m any times have you moved where you were living? 0 03/31/2025 At any time in the past 12 m [facility], were you homeless or living in a chcf (including now)? No 03/31/2025 Comments No Sex and Gender Information Value Date Recorded Sex Assigned at Female 03/06/2025 4:03 PM CDT Legal Sex Female 4:07 PM RAMP ATTENDANT Gender Identity Female 03/06/2025 4:03 PM CDT [...] PM CDT ACT LR - POCT ([facility]) Routine 03/29/2025 2:48 PM CDT ELECTROPHYSIOLOGY PROCEDURE Routine 03/29/2025 2:22 PM CDT Paroxysmal atrial fibrillation (HCC) ELECTROPHYSIOLOGY PROCEDURE Routine 03/29/2025 2:22 PM CDT Paroxysmal atrial fibrillation (HCC) ACT LR - POCT ([facility]) Routine 03/29/2025 2:21 PM CDT ACT LR [...] PM CDT ACT LR - POCT ([facility]) Routine 03/29/2025 11:55 AM CDT ACT LR - POCT ([facility]) Routine 03/29/2025 11:41 AM CDT ECHO DAVID [...] ENDOSCOPY, COLON, DIAGNOSTIC Routine 08/17/2023 9:23 AM RAMP ATTENDANT from Last 3 Months or Most Recently Relevant to Health Maintenance Results * PTT (04/01/2025 3:06 AM CDT) Only the most recent of6 resultswithin the time period is included. APTT 24.1 23.0 - 38.4 Seconds 04/01/2025 3:49 AM CDT [facility] Comment:Suggested therapeuti c range for full dose I.V. unfractionated heparin therapy for venous thromboembolism is 71 to 109 seconds. Blood BLOOD SPECIMEN / Unknown Lab Venipuncture / Unknown 04/01/2025 3:06 AM CDT 04/01/2025 3:23 AM CDT Shazia Chavez MD LAB - COAGULATION ORDERABLES Final Result [facility] [address] [place] [phone], [facility] [phone] * (ABNORMAL) PT-INR (04/01/2025 3:06 AM CDT) Only the most recent of7 resultswithin the time period is included. PT 15.3(H) 12.1 - 14.8 Seconds 04/01/2025 3:49 AM CDT [facility] INR 1.2 See Comment 04/01/2025 3:49 AM CDT [facility] Comment:The suggested therap eutic range for standard coumadin (warfarin) therapy is an INR of 2.0-3.0. For high-risk patients (Mechanical Mitral Valve Prosthesis, etc.), the suggested prophylactic therapeutic range is an INR of 2.5-3.5. Blood BLOOD SPECIMEN / Unknown Lab Venipuncture / Unknown 04/01/2025 3:06 AM CDT 04/01/2025 3:23 AM CDT us Shazia Chavez MD LAB - COAGULATION ORDERABLES Final Result [facility] [address] [place] [address], [facility] [phone] * (ABNORMAL) CBC W AUTO DIFFERENTIAL (04/01/2025 3:06 AM CDT) Only the most recent of8 resultswithin the time period is included. WBC 8.3 4.0 - 10.7 x10E9/L 04/01/2025 3:32 AM [facility] RBC Count 3.11(L) 3.90 - 5.20 x10E12/L 04/01/2025 3:32 AM [facility] Hemoglobin 9.8(L) 11.9 - 15.8 g/dL 04/01/2025 3:32 AM [facility] Hematocrit 30.7(L) 34.8 - 46.1 % 04/01/2025 3:32 AM [facility] MCV 98.7(H) 80.0 - 98.0 fL 04/01/2025 3:32 AM [facility] MCH 31.5 26.7 - 33.6 pg 04/01/2025 3:32 AM [facility] MCHC 31.9 31.7 - 36.3 g/dL 04/01/2025 3:32 AM [facility] RDW-CV 13.2 11.3 - 14.8 % 04/01/2025 3:32 AM [facility] Platelet Count 185 150 - 420 x10E9/L 04/01/2025 3:32 AM [facility] MPV 9.3 7.8 - 11.4 fL 04/01/2025 3:32 AM [facility] Neutrophil % 67.7 41.0 - 74.0 % 04/01/2025 3:32 AM [facility] Lymphocyte % 23.4 17.0 - 47.0 % 04/01/2025 3:32 AM [facility] Monocyte % 8.3 3.0 - 11.0 % 04/01/2025 3:32 AM CDT [facility] Eosinophil % 0.1 0.0 - 7.0 % 04/01/2025 3:32 AM [facility] Basophil % 0.0 0.0 - 1.6 % 04/01/2025 3:32 AM T [facility] Immature Granulocytes % 0.5 0.0 - 1.0 % 04/01/2025 3:32 AM T [facility] Neutrophil Absolute 5.62 1.60 - 7.50 x10E9/L 04/01/2025 3:32 AM T [facility] Lymphocyte Absolute 1.94 1.00 - 4.40 x10E9/L 04/01/2025 3:32 AM [facility] Monocyte Absolute 0.69 0.15 - 1.00 x10E9/L 04/01/2025 3:32 AM [facility] Eosinophil Absolute 0.01 0.00 - 0.60 x10E9/L 04/01/2025 3:32 AM [facility] Basophil Absolute 0.00 0.00 - 0.13 x10E9/L 04/01/2025 3:32 AM [facility] Blood BLOOD SPECIMEN / Unknown Lab Venipuncture / Unknown 04/01/2025 3:06 AM CDT 04/01/2025 3:23 AM CDT Shazia Chavez MD LAB - HEMATOLOGY ORDERABLES Final Result Performing Organization Address City/State/[facility] Co de Phone Number [facility] [address] [place] [address], [facility] [phone] * (ABNORMAL) COMPREHENSIVE METABOLIC PANEL (04/01/2025 3:06 AM CDT) Only the most recent of4 resultswithin the time period is included. BUN 8 7 - 26 mg/dL 04/01/2025 3:52 AM [facility] Creatinine 0.63 0.56 - 0.96 mg/dL 04/01/2025 3:52 AM [facility] Sodium 139 136 - 145 mmol/L 04/01/2025 3:52 AM [facility] Potassium 4.3 3.5 - 4.5 mmol/L 04/01/2025 3:52 AM [facility] Chloride 108(H) 98 - 107 mmol/L 04/01/2025 3:52 AM [facility] CO2 22 22 - 29 mmol/L 04/01/2025 3:52 AM [facility] Glucose 98 70 - 99 mg/dL 04/01/2025 3:52 AM [facility] Calcium 8.7 8.4 - 10.2 mg/dL 04/01/2025 3:52 AM [facility] Protein Total 6.7 6.0 - 8.3 g/dL 04/01/2025 3:52 AM [facility] Albumin 3.8 3.4 - 5.0 g/dL 04/01/2025 3:52 AM [facility] Bilirubin Total 0.3 0.2 - 1.2 mg/dL 04/01/2025 3:52 AM [facility] Alkaline Phosphatase 48 40 - 150 U/L 04/01/2025 3:52 AM [facility] ALT 14 5 - 55 U/L 04/01/2025 3:52 AM [facility] AST 21 5 - 34 U/L 04/01/2025 3:52 AM [facility] Anion Gap 9 6 - 16 04/01/2025 3:52 AM [facility] BUN/Creatinine Ratio 13 7 - 23 04/01/2025 3:52 AM [facility] Osmolality Calculated 286 275 - 295 mOsm/kg 04/01/2025 3:52 AM [facility] Albumin/Globulin Ratio 1.3 1.1 - 2.3 04/01/2025 3:52 AM [facility] eGFR by CKD-EPI >90 >=90 mL/min/1.7 3 m2 04/01/2025 3:52 AM [facility] Comment:Estimated Glomerular Filtration Rate (eGFR) calculated using the CKD-EPI Creatinine Equation (2020), per the National Kidney Foundation and [place] Society of Nephrology recommendations. Blood BLOOD SPECIMEN / Unknown Lab Venipuncture / Unknown 04/01/2025 3:06 AM CDT 04/01/2025 3:23 AM CDT us Shazia Chavez MD LAB - CHEMISTRY ORDERABLES F inal Result Performing Organization Address City/[facility]/ZIP Co de Phone Number [address] [address], [facility] [phone] * (ABNORMAL) PHOSPHORUS BLOOD (04/01/2025 3:06 AM CDT) Only the most recent of4 resultswithin the time period is included. Phosphorus 2.3(L) 2.9 - 5.1 mg/dL 04/01/2025 3:52 AM CDT [facility] Blood BLOOD SPECIMEN / Unknown Lab Venipuncture / Unknown 04/01/2025 3:06 AM CDT 04/01/2025 3:23 AM CDT Shazia Chavez MD LAB - CHEMISTRY ORDERABLES F inal Result Performing Organization Address [facility] Co de Phone Number [address] [address], [place] [phone] * MAGNESIUM BLOOD (04/01/2025 3:06 AM CDT) Only the most recent of4 resultswithin the time period is included. Magnesium 2.1 1.6 - 2.6 mg/dL 04/01/2025 3:52 AM CDT [facility] Blood BLOOD SPECIMEN / Unknown Lab Venipuncture / Unknown 04/01/2025 3:06 AM CDT 04/01/2025 3:23 AM CDT us Shazia Chavez MD LAB - CHEMISTRY ORDERABLES F inal Result Performing Organization Address City/[facility]/ZIP Co de Phone Number [address] [address], [place] [phone] * CT Abdomen Pelvis Wo Contrast (03/31/2025 2:38 PM CDT) Anatomical Region Laterality Modality Abdomen, Pelvis Computed Tomogra phy 03/31/2025 3:54 PM CDT Impressions 03/31/2025 9:32 PM CDT Impression: 1.No acute process identified in the abdomen or pelvis. 2.Colonic diverticulosis without evidence of diverticulitis. 3.Bilateral small volume pleural effusions. > Dictated by Sharon Davenport Dr, MD (residential sales manager). > Dictated by Support Services Coordinator I, Juan Rosales MD have personally reviewed and interpreted this examination/study. > Interpreting Provider: Juan Rosales MD on 03/31/2025 9:32 PM Narrative 03/31/2025 9:32 PM CDT PROCEDURE: CT ABDOMEN PELVIS WO CONTRAST, DATE/TIME OF EXAM: 03/31/2025 2:39 PM, LOCATION [facility] INDICATION: R10.84: Abdominal pain, generalized ADDITIONAL CLINICAL [...] DATE/TIME OF EXAM: 03/31/2025 2:39 PM, LOCATION [facility] INDICATION: R10.84: Abdominal pain, generalized ADDITIONAL CLINICAL [...] Dictated by Sharon Davenport Dr, MD (residential sales manager). > Dictated by Support Services Coordinator I, Juan Rosales MD have personally reviewed and interpreted this examination/study. > Interpreting Provider: Juan Rosales MD on 59:32 PM us Shazia Chavez MD CT ORDERABLES Final Result * (ABNORMAL) HGB HCT PANEL (03/31/2025 12:44 PM CDT) Only the most recent of2 resultswithin the time period is included. Hemoglobin 8.4(L) 11.9 - 15.8 g/dL 03/31/2025 1:01 PM CDT [facility] Hematocrit 24.6(L) 34.8 - 46.1 % 03/31/2025 1:01 PM CDT [facility] Blood BLOOD SPECIMEN / Unknown Venipuncture / Unknown 03/31/2025 12:44 PM CDT 03/31/2025 12:54 PM CDT Shazia Chavez MD LAB - HEMATOLOGY ORDERABLES Final Result [address] [address], [place] [phone] * TSH REFLEX FREE T4 (03/31/2025 5:03 AM CDT) TSH 0.498 0.350 - 4.940 uIU/mL 03/31/2025 6:56 AM CDT [facility] Blood BLOOD SPECIMEN / Unknown Lab Venipuncture / Unknown 03/31/2025 5:03 AM CDT 03/31/2025 6:04 AM CDT Shazia Chavez MD LAB - CHEMISTRY ORDERABLES F inal Result Performing Organization Address City/[facility]/ZIP Co de Phone Number [address] [address], [place] [phone] * HEMOGLOBIN A1C (03/31/2025 5:03 AM CDT) Hemoglobin A1c 5.0 <=5.6 % 03/31/2025 1:45 PM CDT [facility] Estimated Average Glucose 97 mg/dL 03/31/2025 1:45 PM T [facility] Comment: HbA1c Interpretation: Normal : < 5.7% Pre-diabetes: 5.7-6.4% Diabetes: Equal to or greater than 6.5% Test results diagnostic of diabetes should be repeated for confirmation. Treatment target values recommended by ADA and other clinical organizations should be used to evaluate metabolic control in patients. Reference: [place] Diabetes Association, Standards of Care in Diabetes [...] - CHEMISTRY ORDERABLES F inal Result [address] [address], [facility] [phone] * (ABNORMAL) LIPID PROFILE (03/31/2025 5:03 AM CDT) Cholesterol Total 177 <200 mg/dL 03/31/2025 6:43 AM T [facility] HDL 56 >40 mg/dL 03/31/2025 6:43 AM [facility] Comment: ATP III Classification of HDL Cholesterol: <40 mg/dL: Considered a major risk factor. >60 mg/dL: Considered a negative risk factor. LDL Calculated 109(H) <100 mg/dL 03/31/2025 6:43 AM T [facility] Comment: ATP III Classification of LDL Cholesterol: <100 mg/dL: Optimal 100 - 129 mg/dL: Near Optimal/Above Optimal 130 - 159 mg/dL: Borderline High 160 - 189 mg/dL: High >190 mg/dL: Very High LDL is calculated using the Friedewald equation. Triglycerides 58 <150 mg/dL 03/31/2025 6:43 AM T [facility] Comment: ATP III Classification of Triglycerides: <150 mg/dL: Normal 150 - 199 mg/dL: Borderline High 200 - 400 mg/dL: High >500 mg/dL: Very High Blood BLOOD SPECIMEN / Unknown Lab Venipuncture / Unknown 03/31/2025 5:03 AM CDT 03/31/2025 6:04 AM CDT us Shazia Chavez MD LAB - CHEMISTRY ORDERABLES F inal Result Performing Organization Address City/[facility]/ZIP Co de Phone Number [facility] [address] [place] [address], [facility] [phone] * EKG 12-Lead (03/30/2025 10:44 AM CDT) Only the most recent of3 resultswithin the time period is included. Ventricular Rate 95 BPM [facility] MUSE Atrial Rate 95 BPM [facility] MUSE P-R Interval 130 ms [facility] MUSE QRS Duration ms 80 ms [facility] MUSE Q-T Interval ms 382 ms [facility] MUSE QTC Calculation (Bezet) 480 ms [facility] MUSE Calculated P Harrison 64 degrees [facility] MUSE Calculated R Harrison 39 degrees [facility] MUSE Calculated T Harrison 50 degrees [facility] MUSE Interpretation EKG NORMAL SINUS RHYTHM LOW VOLTAGE QRS PROLONGED QT ABNORMAL ECG WHEN COMPARED WITH ECG OF 29-MAR-2025 06:23, PREMATURE VENTRICULAR COMPLEXES ARE NO LONGER PRESENT Confirmed by MD DO, CHRISTOPHER ([id number]) on 03/31/2025 8:27:22 AM [facility] MUSE 03/30/2025 10:4 4 AM CDT 03/31/2025 8:27 AM CDT Shazia Chavez MD ECG ORDERABLES Edited Resul t - Final Performing Organization Address [facility] Co de Phone Number [facility] MUSE * (ABNORMAL) BLOOD GASES ART + COOX PANEL (03/30/2025 7:54 AM CDT) Only the most recent of2 resultswithin the time period is included. pH Arterial 7.39 7.35 - 7.45 pH 03/30/2025 8:06 AM CDT [facility] pO2 Arterial 145(H) 80 - 100 mmHg 03/30/2025 8:06 AM CDT [facility] pCO2 Arterial 32(L) 35 - 45 mmHg 8:06 AM T [facility] HCO3 Arterial 19.4(L) 20.0 - 30.0 mmol/L 03/30/2025 8:06 AM T [facility] BE Arterial -4.8(L) -2.0 - 2.0 mmol/L 03/30/2025 8:06 AM [facility] Oxyhemoglobin Arterial 97.2 % 03/30/2025 8:06 AM [facility] Dexoyhemoglobin (HHB) % <1.0 % 03/30/2025 8:06 AM [facility] Methemoglobin 1.0 0.0 - 2.0 % 03/30/2025 8:06 AM [facility] Carboxyhemoglobin 1.2 0.0 - 2.0 % 2024 8:06 AM [facility] O2 Content Arterial 14.9 Interpret within clinical context ml/dL 03/30/2025 8:06 AM [facility] Hemoglobin by COOX 10.7(L) 12.0 - 15.6 g/dL 03/30/2025 8:06 AM [facility] O2 Saturation Arterial 99 90 - 100 % 03/30/2025 8:06 AM [facility] FI O2 Arterial 40.0 % 03/30/2025 8:06 AM [facility] Blood, arterial ARTERIAL BLOOD SPECIMEN / Unknown Arterial Puncture / Unknown 03/30/2025 7:54 AM [facility] 03/30/2025 8:02 AM [facility] - 03/30/2025 8:06 AM [facility] N[facility] Carboxyhemoglobin Normal Concentration: Non-smokers: 0-2%; Smokers: 0-9%; Toxic: >20% Shazia Chavez MD LAB - BLOOD GASES ORDERABLES Final Result [facility] [address] [place] [address], [facility] [phone] * (ABNORMAL) CALCIUM IONIZED WHOLE BLOOD (03/30/2025 4:01 AM [facility] N[facility]) Pathologist [facility] Calcium Ionized 1.11 mmol/L 03/30/2025 4:36 AM [facility] pH 7.43 7.35 - 7.45 pH 03/30/2025 4:36 AM [facility] Ionized Calcium pH Adjusted 1.12(L) 1.19 - 1.34 mmol/L 03/30/2025 4:36 AM CDT [facility] Blood BLOOD SPECIMEN / Unknown Venipuncture / Unknown 03/30/2025 4:01 AM CDT 03/30/2025 4:12 AM CDT Shazia Chavez MD LAB - CHEMISTRY ORDERABLES F inal Result [facility] [address] [place] [address], [facility] [phone] * XR Chest 1Vw Portable (03/29/2025 6:30 [...] DATE/TIME OF EXAM: 03/29/2025 7:04 PM, LOCATION [facility] INDICATION: T88.4XXA: Difficult airway for intubation, initial encounter ADDITIONAL CLINICAL INFORMATION: Ordering Provider Reason For Exam: ETT placement Technologist Note: Additional: COMPARISON: None. Procedure Note Familia Ramirez MD - 03/30/2025 PROCEDURE: XR CHEST 1VW PORTABLE, DATE/TIME OF EXAM: 03/29/2025 7:04PM, LOCATION [facility] INDICATION: T88.4XXA: Difficult airway for intubation, initial [...] - 57 mg/dL 03/29/2025 5:28 PM CDT [facility] Blood BLOOD SPECIMEN / Unknown Venipuncture / Unknown 03/29/2025 4:52 PM CDT 03/29/2025 5:01 PM CDT Shazia Chavez MD LAB - SEROLOGY ORDERABLES Fi nal Result [address] [address], [place] [phone] * COMPLEMENT C3 (03/29/2025 4:52 PM CDT) Complement C3 97 82 - 193 mg/dL 03/29/2025 5:28 PM CDT [facility] Blood BLOOD SPECIMEN / Unknown Venipuncture / Unknown 03/29/2025 4:52 PM CDT 03/29/2025 5:01 PM CDT Shazia Chavez MD LAB - CHEMISTRY ORDERABLES F inal Result [address] [address], [place] [phone] * ACT LR - POCT ([facility]) (03/29/2025 2:48 PM CDT) Only the most recent of10 resultswithin the time period is included. ACT LR 128 See result comments sec 04/02/2025 7:09 AM CDT [facility] Blood BLOOD SPECIMEN / Unknown 03/29/2025 2:48 PM CDT 04/02/2025 7:09 AM CDT Narrative [facility] - 04/02/2025 7:09 AM CDT ACT-LR Therapeutics ranges are: Cardiac labels molder = 200-300 seconds Sheath pull = ACT [...] LAB - COAGULATION ORDERABLES Fin al Result [facility] [address] [place] [address], [facility] [phone] * CCL ABLATION ATRIAL FIB RF, CCL [...] airway protection. EP Study: RR- 626 ms AZ-159 ms QT-397 ms QRS- 63 ms AH-71 ms HV-41 ms Kailey Tomlin MD ELECTROPHYSIOLOGY CUPID PROCS Final Result * ECHO DAVID W INTERVENTION (03/29/2025 8:46 AM CDT) Anatomical Region Laterality Modality Ultrasound 03/29/2025 8:32 AM CDT Narrative 04/05/2025 4:26 PM CDT Patient Info Name: Radha Wu Age: 55 years : 1970 Gender: Female Exam Date: 03/29/2025 8:32 AM Patient [place] [facility] Site: [facility] Primary Location: [facility] EStudy Info Exam Type: ECHO DAVID W INTERVENTION Indications I48.0 - Paroxysmal atrial fibrillation (HCC) * A transesophageal echocardiogram is performed. Staff Referring Physician: Kailey Tomlin Ordering Provider: Kailey Tomlin Attending Physician: Kailey Tomlin Technology Resource Teacher: Israel Esparza Procedure Details The patient arrived in a fasting state after obtaining informed consent. The transesophageal probe was passed without difficulty into the posterior pharynx, mid-esophagus, and distal esophagus. Imaging was performed at multiple levels. The patient tolerated the procedure well and there were no complications. The patient was transferred out of the examination area in satisfactory condition. Probe passed by the wildlife protector without difficulty. Atrial Appendage The left atrial appendage was interrogated with PW doppler, color flow, and echo contrast. No KEY thrombus was noted. Report Signatures Finalized by Kailey Tomlin on 04/05/2025 04:26 PM Procedure Note Kailey Tomlin MD - 04/05/2025 Patient Info Name: Radha Wu Age: 55 years : 1970 Gender: Female Exam Date: 03/29/2025 8:32 AM Patient [place] [facility] [place] Study Site: [facility] Primary Location: [facility] EStudy Info Exam Type: ECHO DAVID W INTERVENTION Indications I48.0 - Paroxysmal atrial fibrillation (HCC) * A transesophageal echocardiogram is performed. Staff Referring Physician: Kailey Tomlin Ordering Provider: Kailey Tomlin Attending Physician: Kailey Tomlin Technology Resource Teacher: Israel Esparza Procedure Details The patient arrived in a fasting state after obtaining informedconsent. The transesophageal probe was passed without difficulty into theposterior pharynx, mid-esophagus, and distal esophagus. Imaging was performed at multiple levels. The patient tolerated the procedure well and there wereno complications. The patient was transferred out of the examination areain satisfactory condition. Probe passed by the wildlife protector withoutdifficulty. Atrial Appendage The left atrial appendage was interrogated with PW doppler, color flow,and echo contrast. No KEY thrombus was noted. Report Signatures Finalized by Kailey Tomlin on 04/05/2025 04:26 PM Kailey Tomlin MD ECHO CUPID Final Result * ARTERIAL LINE PERFORMABLE (03/29/2025 8:32 AM CDT) Narrative Jeaneth Henning APRN-IRON WORKER APPRENTICE - 03/29/2025 8:32 AM CDT Jeaneth Henning APRN-CRNA 03/29/2025 8:36 AM Arterial Line Placement Procedure Note Patient Location: OR. Insertion Time: 03/29/2025 8:15 AM Procedure: Arterial Line (29910) Procedure Section Indications: continuous blood pressure monitoring [...] Staples MD. Additional Comments: Atraumatic placement of Winifred.. Torey Staples MD GENERAL ANESTHESIA ORDERABLE S Final Result * ETT LINE PERFORMABLE (03/29/2025 8:24 AM CDT) Narrative Torey Staples MD - 03/29/2025 8:24 AM CDT Torey Staples MD 03/29/2025 8:29 AM Endotracheal Tube Placement: Patient Location: [place]. Intubation Event Date/Time: 03/29/2025 8:10 AM Procedure: intubation ([id number]) Procedure Section: Sedation: IV sedation. Indications for [...] resultswithin the time period is included. Pathologist [facility] Antibody Screen NEG 7:26 AM CDT [facility] ABO Rh A POS 03/29/2025 7:26 AM CDT [facility] Blood Bank BLOOD SPECIMEN / Unknown Venipuncture / Unknown 03/29/2025 6:17 AM CDT 03/29/2025 6:29 AM CDT Samantha Reeves [facility] - BLOOD BANK ORDERABLE S Final Result [facility] 1201 [place] [address], [facility] [phone] * BASIC METABOLIC PANEL (CALCIUM TOTAL) (03/29/2025 6:17 AM CDT) Only the most recent of2 resultswithin the time period is included. Pathologist [facility] BUN 14 7 - 26 mg/dL 03/29/2025 6:56 AM [facility] Creatinine 0.75 0.56 - 0.96 mg/dL 03/29/2025 6:56 AM [facility] Sodium 139 136 - 145 mmol/L 03/29/2025 6:56 AM [facility] Potassium 3.8 3.5 - 4.5 mmol/L 03/29/2025 6:56 AM [facility] Chloride 106 98 - 107 mmol/L 03/29/2025 6:56 AM [facility] CO2 25 22 - 29 mmol/L 03/29/2025 6:56 AM CDT [facility] Glucose 76 70 - 99 mg/dL 03/29/2025 6:56 AM [facility] Calcium 9.4 8.4 - 10.2 mg/dL 03/29/2025 6:56 AM [facility] Anion Gap 8 6 - 16 03/29/2025 6:56 AM [facility] BUN/Creatinine Ratio 19 7 - 23 03/29/2025 6:56 AM [facility] Osmolality Calculated 287 275 - 295 mOsm/kg 03/29/2025 6:56 AM [facility] eGFR by CKD-EPI >90 >=90 mL/min/1.7 3 m2 03/29/2025 6:56 AM [facility] Comment:Estimated Glomerular Filtration Rate (eGFR) calculated using the CKD-EPI Creatinine Equation (2020), per the National Kidney Foundation and [place] [employer] recommendations. Blood BLOOD SPECIMEN / Unknown Venipuncture / Unknown 03/29/2025 6:17 AM CDT 03/29/2025 6:27 AM CDT Samantha Reeves RESEARCH LABORATORY MANAGER-[facility]FFL[facility] LAB - CHEMISTRY ORDERABLES Final Result [facility] [address] [place] [address], [facility] [phone] * CT Cardiac Angio Struct Morph (03/07/2025 1:16 PM CDT) Anatomical Region Laterality Modality Chest Computed Tomogra phy 03/07/2025 1:42 PM CDT Impressions 03/08/2025 6:04 AM CDT Impression: Pulmonary vein measurements as described above for left atrial ablation. > Dictated by Jose Guadalupe Maldonado DO (residential sales manager). > Dictated by Support Services Coordinator IJuan MD have personally reviewed and interpreted [...] Dictated by Jose Guadalupe Maldonado DO (residential sales manager). > Dictated by Support Services Coordinator I, Juan Rosales MD have personally reviewed and interpreted this examination/study. > Interpreting Provider: Juan Rosaels MD on 56:04 AM us Kailey Tomlin MD CT ORDERABLES Final Result * (ABNORMAL) ISTAT CREATININE (03/07/2025 12:52 PM CDT) Creatinine POCT 0.80 0.60 - 1.30 mg/dL 03/07/2025 12:54 PM CDT [facility] eGFR by CKD-EPI 87(L) >90 mL/min/1.7 3 m2 03/07/2025 12:54 PM CDT [facility] Blood BLOOD SPECIMEN / Unknown 03/07/2025 12:52 PM CDT 03/07/2025 12:54 PM CDT us Kailey Tomlin MD LAB - POINT OF CARE ORDERABLES F inal Result [facility] [address] [place] [address], [facility] [phone] * ENDOSCOPY, COLON, DIAGNOSTIC (08/17/2023 9:23 AM RAMP ATTENDANT) Report Endoscopy POC Endoscopy Department Report _ [...] bowel preparation was evaluated using the BBPS ([place] Bowel Preparation Scale) with scores of: Right [...] non-farrell portions. 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 All rights reserved. The codes documented in this report are preliminary and upon physician coder review may be revised to meet current compliance requirements. Jorge Luis Mckay MD 08/17/2023 10:30:40 AM This report has been signed electronically. Note Initiated On: 08/17/2023 9:23 AM Number of Addenda: [address] [id number] [facility] 08/17/2023 9:23 AM RAMP ATTENDANT Jorge Luis Fisher MD GI PROCEDURE ORDER ALTAGRACIA Edited Result - Final [facility] from Last 3 Months or Most Recently Relevant to Health Maintenance Insurance [facility] Advance Directives * Full Code (Latest Code Status on File) Date Activated Date Inactivated Comments 03/29/2025 2:53 PM 04/01/2025 10:49 AM * Full Code Date Activated Date Inactivated Comments 08/14/2023 7:40 AM 08/19/2023 2:32 PM Care Teams Mailing Specialist Relationship Specialty Start Date End Date Marcia Abrams APRN-RONY [address] [place] [address] [address] [place] [address] PCP - General Nurse Practitioner 08/20/23
--- OUTSIDE RECORDS SUMMARY | 2025-05-31 15:52 | XMS_ITS | Patient Health Record ---
Author Organization [facility] [employer] Address [address] [facility] [facility] [address] [place] [address] Care Team Providers Care Fuel Agent Name Role Phone MenaHilario Unavailable [phone] Reason For Referral No Information Plan Of Treatment No Information
--- OUTSIDE RECORDS SUMMARY | 2025-05-31 15:52 | XMS_ITS | Clinical Summary ---
Author Organization [facility] Address [address] [facility] [place] [address] Phone Care Team Providers Care Copier Technician Name Role Phone Jorge Luis Weems MD Unavailable Unavailab Marcia Meier APRN Primary Care Provider [phone] Kailey Tomlin MD Unavailable Allergies Active Allergy [...] Transcribe Orders [facility] [address] [place] [address] Marcia Abrams APRN Visit for screening mammogram (Primary Dx) 05/07/2025 Transcribe Orders [facility] [address] [facility] [address] [place] [address] Marcia Abrams, SKIP Visit for screening mammogram (Primary Dx) 05/07/2025 [facility] [address] [place] [address] Kailey Tomlin MD Medication Refill 05/02/2025 8:00 AM CDT Office Visit [facility] Cardiology [facility] [address] [place] [address] Kailey Tomlin MD Paroxysmal atrial fibrillation (HCC) (Primary Dx) Discharge Disposition: Discharged to home or Selfcare 05/02/2025 Travel 04/25/2025 [facility] [place] [address] Kailey Tomlin MD Medication Refill 04/03/2025 Telephone [facility] Cardiology [facility] [address] [place] [address] Kailey Tomlin MD Advice Only 04/02/2025 Telephone [facility] [address] [place] [address] Kailey Tomlin MD Letter for School/Work 03/21/2025 3:30 PM CDT Office Visit [facility] [address] [place] [id number] Kailey Tomlin MD Paroxysmal atrial fibrillation (HCC) [...] drink = 0.6 oz pur e alcohol) [facility] Utilities Answer Date Recorded In the past 12 months has e [employer], gas, oil, or water [employer] threatened to shut off services in your home? Patient declined 09/23/2024 Social Connection and Isolation Panel Answer Date Recorded In a typical week, how many times do you talk on the phone with family, friends, or neighbors? Patient declined 09/23/2024 How often do you get togethe r with friends or relatives? Patient declined 09/23/2024 How often do you attend tenriism or mormon serv ices? Patient declined 09/23/2024 Do you belong to any clubs o r organizations such as tenriism groups, unions, fraternal or athletic groups, or [...] Total Score - Questions 1-9 2 01/2023 [facility] - Occupational Stress Questionnaire Answer Date Recorded [...] any time in the past 12 m [facility], were you homeless or living in a care home (including now)? Patient declined 09/23/2024 Sexually Active [...] st Contact Info) Description 08/15/2025 2:00 PM INFORMATION SYSTEMS PLANNER Office Visit [facility] [place] [address] [place] [address] Kailey Tomlin MD [address] [address] 05/17/2026 7:00 AM CDT Appointment [facility] Mammography [address] [place] [address] Marcia Abrams, DIRECTOR OF ESTATE [address] [place] [address] Discharge Disposition: Discharged to home or Selfcare [...] to exams dated: 09/18/2021, 09/10/2020, and 06/15/[address] [facility]. BREAST TISSUE:The tissue of both breasts is [...] exam. Electronically signed by: Robert skinner/willard:12/04/2022 14:12:25 Physician Practice Coordinator(s): RT Kit(R)(M), [facility] letter sent: Normal Exam Reading location: [facility] BI-RADS: 1 Negative Procedure Note [...] to exams dated: 09/18/2021, 09/10/2020, and 06/15/2019 [facility]. BREAST TISSUE:The tissue of both breasts is [...] exam. Electronically signed by: Robert skinner/willard:12/04/2022 14:12:25 Physician Practice Coordinator(s): RT Kit(R)(M), [facility] letter sent: Normal Exam Reading location: [facility] BI-RADS: 1 Negative Jorge Luis Weems MD IMG MAMMO ORDERABLES Final Result from Last 3 Months or Most Recently Relevant to Health Maintenance Insurance [facility] Advance Directives * Full Code (Latest Code Status on File) Date Activated Date Inactivated Comments 09/23/2024 4:04 PM CPR-Full Treat ment: FULL ARREST: Attempt Resuscitation/CPR wit intubation and mechanical ventilation. PRE-ARREST: Use entire range of life support measures to stabilize the patient. Care Teams Copier Technician Relationship Specialty Start Date End Date Marcia Abrams APRN [address] [place] [address] [place] [address] PCP - General Advanced Practice Nurse 09/21/24 Jorge Luis Weems MD Consulting Physician Obstetrics & Gynecology 03/15/17 Kailey Tomlin MD [address] [address] Consulting Physician Cardiovascular Disease - Cardiology 12/21/24
== END 2025-05-31 14:45 | disposition home or self-care (01) ==
PROVIDERS: PCP Nurse Practitioner Adult Health; Visit Provider Nurse Practitioner Adult Health
DX: R10.9 Unspecified abdominal pain (principal)
CPT/HCPCS: 74176